=== PATIENT | male | born 1945 | race Caucasian/White ===

== ENCOUNTER 2020-09-07 03:58 | Emergency (ER) | payer MEDICARE, OTHER, MEDICAID, SELFPAY ==
--- NOTE | ~2020-09-07 | CT_ITS ---
EXAMINATION: CT brain wo con DATE: 09/07/2020 04:35 INDICATION: Head injury. TECHNIQUE: Computed tomography (CT) of the head was performed without intravenous contrast. The dose- length product was 1059.33 mGy-cm. Automated exposure control and iterative reconstruction technique were employed. COMPARISON: No prior studies for comparison. FINDINGS: There is a large extra-axial fluid collection of the right hemisphere measuring approximate ly 3 cm thickness on the coronal images. There is a right temporal craniotomy defect with ventriculos michelle catheter extending midline aspect of the anterior cranial fossa. There are dural calcifications along the right hemisphere. No acute intracranial hemorrhage or infarction is identified. No signific ant midline shift. Paranasal sinuses are unremarkable. IMPRESSION: 1. No acute intracranial abnormality. 2: Large extra-axial fluid collection right hemisphere measuring 3 cm which may represent a large chr onic subdural hematoma or hygroma. No midline shift. Reviewed, dictated and finalized at location B. IMPRESSION: 1. No acute intracranial abnormality. 2: Large extra-axial fluid collection right hemisphere measuring 3 cm which may represent a large chronic subdural hematoma or hygroma. No midline shift.
--- NOTE | 2020-09-07 04:11 | ED.HEATRA ---
HPI - Head Injury General Chief complaint: Wound/Laceration Stated complaint: fall-lac to face and scalp Time Seen by Provider: 09/07/20 04:07 Source: patient Mode of arrival: EMS Limitations: no limitations History of Present Illness HPI Narrative: Patient is a 74-year-old male complaining of hitting his head on a wheelchair after rolling out of bed, causing laceration on left side of his head. Patient denies any loss of consciousness. Patient denies any neck pain, chest pain, abdominal pain, back pain or any extremity pain/injury. Patient is nonambulatory and wheelchair-bound. Related Data Allergies Allergy/AdvReac Type Severity Reaction Status Date / Time aspirin Allergy Unknown Unknown Verified 09/07/20 04:18 Review of Systems Review of Systems: All systems reviewed & are unremarkable except as noted in HPI and below Constitutional: Constitutional: Denies body ache(s), Denies chills, Denies excessive sweating, Denies fatigue, Denies fever(s), Denies headache(s), Denies lethargy, Denies malaise, Denies weakness and Denies weight loss Eyes: Eyes: Denies blurry vision, Denies change in vision and Denies loss of vision ENT: Denies dizziness, Denies ear discharge, Denies headache(s), Denies lip swelling, Denies epistaxis, Denies nasal congestion, Denies neck pain, Denies throat swelling and Denies tongue swelling Cardiovascular: Cardiovascular: Denies chest pain, Denies chest pain at rest, Denies chest pain with activity, Denies diaphoresis, Denies rapid heart rate, Denies edema, Denies irregular heart rhythm, Denies lightheadedness, Denies palpitations, Denies dyspnea and Denies dyspnea on exertion Respiratory: Respiratory: Denies chest congestion, Denies cough, Denies hemoptysis, Denies dyspnea and Denies dyspnea on exertion Gastrointestinal: Gastrointestinal: Denies abdominal pain, Denies melena, Denies hematochezia, Denies diarrhea, Denies nausea, Denies vomiting and Denies hematemesis Musculoskeletal: Musculoskeletal: Denies abnormal gait, Denies deformity, Denies joint swelling, Denies limited range of motion, Denies neck pain and Denies numbness Neurologic: Denies Abnormal speech present, Denies confusion, Denies dizziness, Denies headache(s), Denies focal weakness, Denies loss of vision, Denies numbness, Denies Other visual disturbances, Denies Sensory deficit (Neuro) and Denies weakness Psychiatric: Psychiatric: Denies confusion, Denies depression, Denies auditory hallucinations, Denies homicidal ideation and Denies suicidal ideation Endocrine: Endocrine: Denies cold intolerance, Denies excessive sweating, Denies fatigue, Denies heat intolerance and Denies palpitations Hematologic/Lymphatic: Hematologic/Lymphatic: Denies easy bleeding and Denies easy bruising Allergic/Immunologic: Allergic/Immunologic: Denies lip swelling, Denies throat swelling and Denies tongue swelling [facility] Social History Social History Gender identity (if verbalized by the patient): Male Comments Past medical history: Traumatic brain injury, hypertension Social history: Non-smoker, no EtOH use, lives at a assisted Family history: Noncontributory Exam Const: General: cooperative, healthy appearing, comfortable, no acute distress, well developed, alert and awake; No confusion Limitations: no limitations HENMT: Head: normal to inspection, normocephalic and atraumatic Ears: hearing grossly normal bilaterally, TM normal on the right and TM normal on the left General nose exam: Normal external nose present, Normal nares present and No nasal discharge present Face and sinus: normal facial exam Mouth: Yes Normal oral and palatal mucosa present, Yes lip normal, Yes tongue normal and Yes oropharynx normal Throat: posterior oropharynx normal, tonsils normal and uvula midline Other: 4 cm laceration left frontoparietal area/scalp Eyes: General: appearance normal, both eyes and all related structur
[2020-09-07 04:14] VITALS: BP 154/93; PULSE 88; RESP 18; TEMP 36.2; O2SAT 98
--- NOTE | 2020-09-07 04:18 | PC.NURSE ---
Pt to CT scan via stretcher.
[2020-09-07 05:37] VITALS: BP 144/87; PULSE 84; RESP 15; O2SAT 99
--- NOTE | 2020-09-07 05:39 | PC.NURSE ---
called [facility] to request transport.. ETA [phone]
--- NOTE | 2020-09-07 06:16 | PC.NURSE ---
[facility] here.
--- NOTE | 2020-09-07 06:25 | PC.NURSE ---
Attempted to call [facility] x 2 in order to give pt report/status update. No answer x 2. [id number] [id number], no VM to leave message.
[2020-09-07 06:26] VITALS: BP 140/87; PULSE 80; RESP 17; O2SAT 97
== END 2020-09-07 06:27 ==
PROVIDERS: Emergency Provider Emergency Medicine; PCP Internal Medicine
DX: S01.01XA Laceration without foreign body of scalp, initial encounter (principal); I10 Essential (primary) hypertension; W06.XXXA Fall from bed, initial encounter
CPT/HCPCS: 12002; 70450; 99284

== ENCOUNTER 2021-05-27 02:39 | Emergency (ER) | payer MEDICARE, OTHER, MEDICAID, SELFPAY ==
--- NOTE | ~2021-05-27 | CT_ITS ---
EXAMINATION: CT cervical spine wo con DATE: 05/27/2021 03:07 INDICATION: Head injury. TECHNIQUE: Computed tomography (CT) of the cervical spine was performed without intravenous contrast. Automated exposure control and iterative reconstruction technique were employed. The dose-length pro duct was 351.35 mGy-cm. COMPARISON: None FINDINGS: There is mild scarring at right lung apex. Dental disease is noted. There is 45 degrees lev oscoliosis of cervical thoracic spine. There is 2 mm anterolisthesis of C6 on C7. There is mild chron ic anterior wedging of C7 and T1 vertebral bodies. There is interbody fusion at C5-C6. There is sever kelsie decreased disc height from C2-C3 through C4-C5 and moderately decreased disc height at C6-C7. The re is a benign bone island in T1 vertebral body. A disconnected right-sided ventriculoperitoneal shun t is noted. The following disc levels are specifically discussed: C2-C3: There is severe right and moderate left uncovertebral joint osteoarthritis. There is severe ri ght and moderate left facet joint osteoarthritis. There is moderate right neural foraminal stenosis. There is no central canal stenosis. C3-C4: There is severe right and mild left uncovertebral joint osteoarthritis. There is severe right and moderate left facet joint osteoarthritis. There is moderate right neural foraminal stenosis. Ther e is mild central canal stenosis. C4-C5: There is severe right and moderate left uncovertebral joint osteoarthritis. There is severe ri ght and mild left facet joint osteoarthritis. There is moderate right and mild left neural foraminal stenosis. There is mild central canal stenosis. C5-C6: There is mild right and moderate left uncovertebral joint hypertrophy. There is mild left face t joint osteoarthritis. There is ankylosis of right facet joint with severe hypertrophy. There is mil d bilateral neural foraminal stenosis. There is mild central canal stenosis. C6-C7: There is mild bilateral uncovertebral joint osteoarthritis. There is severe bilateral facet ebenezer int osteoarthritis. There is mild bilateral neural foraminal stenosis. There is mild central canal st enosis. C7-T1: There is no uncovertebral joint osteoarthritis. There is severe bilateral facet joint osteoart hritis. There is mild bilateral neural foraminal stenosis. There is no central canal stenosis. IMPRESSION: 1. No fracture. 2. Severe cervical spondylosis. 3. Cervical levoscoliosis. 4. Disconnected right ventriculoperitoneal shunt, which is chronic. Reviewed, dictated and finalized at location A. R CHASER
--- NOTE | ~2021-05-27 | XR_ITS ---
EXAMINATION: XR chest 1V portable DATE: 05/27/2021 03:10 INDICATION: Fall. TECHNIQUE: A single frontal view of the chest was obtained. COMPARISON: Chest 2 views 05/07/2013, CT abdomen and pelvis 01/20/2013 FINDINGS: There are airspace opacities in the lower lung zones. No pleural effusion or pneumothorax. The heart size is normal. A right-sided ventriculoperitoneal shunt is seen with tip in the right uppe r quadrant. IMPRESSION: 1. Airspace opacities in the lower lung zones, consistent with atelectasis versus pneumonia. Reviewed, dictated and finalized at location A. 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 Airspace opacities in the lower lung zones, consistent with atelectasis vers us pneumonia.
--- NOTE | ~2021-05-27 | CT_ITS ---
EXAMINATION: CT brain wo con DATE: 05/27/2021 03:07 INDICATION: Head injury. TECHNIQUE: Computed tomography (CT) of the head was performed without intravenous contrast. The mA wa s adjusted according to patient size. Iterative reconstruction technique was employed. The dose-lengt h product was 756.67 mGy-cm. COMPARISON: Head CT 09/07/2020 FINDINGS: There are scattered areas of low attenuation in the cerebral white matter. There is no intr acranial hemorrhage, acute infarction, or abnormal intracranial mass lesion. The ventricles are tod l in size. There are changes of right-sided craniotomy. There is a subdural fluid collection on the r ight that is isodense to cerebral spinal fluid with maximum thickness of 19 mm. A catheter passes thr ough this fluid collection with tip in the third ventricle. The catheter is disconnected from the tub ing in the scalp. There is mild mucosal thickening in the paranasal sinuses. The orbits are normal. T he mastoid air cells are normal. There is cerumen in the external auditory canals. There is an old bu rr hole in the left posterior skull. IMPRESSION: 1. Mild nonspecific cerebral white matter disease, which likely represents chronic small vessel ische daniel disease. 2. Stable right-sided subdural fluid collection, which may be a chronic subdural hematoma or hygroma. 3. Disconnected ventriculoperitoneal shunt, unchanged from 09/07/20. Reviewed, dictated and finalized at location A. ET PRESS ASSISTANT IMPRESSION: 1. Mild nonspecific cerebral white matter disease, which likely represents patient coordinator anusha small vessel ischemic disease. 2. Stable right-sided subdural fluid collection, which may be a chronic subdura l hematoma or hygroma. 3. Disconnected ventriculoperitoneal shunt, unchanged from 09/07/20.
[2021-05-27 02:38] VITALS: BP 155/83; PULSE 85; RESP 18; TEMP 36.7; O2SAT 97
--- NOTE | 2021-05-27 03:23 | ED.FALL ---
HPI - Fall General Chief Complaint: Fall Stated Complaint: FALL WITH HEAD LAC Source: RN notes reviewed History of Present Illness HPI Narrative: Patient presents emergency department from [facility] for fall. The patient was found down by his bed with a laceration over the left side of his forehead patient states he does not specifically recall how he fell he denies any pain or injury at this time. Patient denies any chest pain shortness of breath abdominal pain or extremity pain Related Data Allergies Allergy/AdvReac Type Severity Reaction Status Date / Time aspirin Allergy Severe Vomiting Verified 05/27/21 02:50 Review of Systems Review of Systems: Gen.: Denies fevers or chills ENT: Denies facial pain Respiratory: Denies shortness of breath CV: Denies chest pain GI: Denies abdominal pain nausea, emesis Musculoskeletal: Denies back pain or muscle pain Neuro: Denies numbness, tingling, weakness or focal weakness Skin: Reports laceration Except as documented, all other systems reviewed and negative PMFSH Past Medical History Medical History (Updated 05/27/21 @ 04:22 by Arthur Calvin DO) Hypertension Social History Social History (Updated 05/27/21 @ 03:41 by Arthur Calvin DO) Smoking status: Never smoker Gender identity (if verbalized by the patient): Male Exam Narrative: APPEARANCE: No acute distress, nontoxic, resting in bed EYES: PERRL HEENT: Normocephalic, 2 cm laceration over left lateral scalp that is linear and deep with mild venous bleeding and no foreign bodies. Nares patent oral mucosa moist with full range of motion Neck: C-collar present no midline tenderness palpation RESPIRATORY: No respiratory distress Clear to auscultation bilaterally with no rhonchi wheezing or rales. CARDIOVASCULAR: Regular rate and rhythm without murmurs rubs or gallops. ABDOMINAL: Soft, nontender, nondistended, no rebound or guarding MUSCULOSKELETAl: Moves all extremities. No clubbing, cyanosis or edema. No tenderness of bilateral upper and lower extremities NEURO: Awake and alert. Following commands, speech normal, no focal deficits SKIN:: Warm, dry. No rashes lesions or abrasions PSYCHIATRIC: Normal affect/mood, Course Course Emergency Course: Patient seen as a transfer but is not ambulatory at baseline Discussed with patient results of workup and diagnosis. Discussed need for follow-up with primary care, proper use of medication, and reasons to return to the emergency department. Patient understands and agrees to current treatment plan Vital Signs Vital signs: Vital Signs Temperature 98.1 F 05/27/21 02:38 Pulse Rate 85 05/27/21 02:38 Respiratory Rate 18 05/27/21 02:38 Blood Pressure 155/83 H 05/27/21 02:38 Pulse Oximetry 97 05/27/21 02:38 Temperature 98.1 F 05/27/21 02:38 Pulse Rate 85 05/27/21 02:38 Respiratory Rate 18 05/27/21 02:38 Blood Pressure 155/83 H 05/27/21 02:38 Pulse Oximetry 97 05/27/21 02:38 Procedures Laceration Laceration 1: ====== Skin Level ====== ====== Subcutaneous Layer ====== ====== Muscle Layer ====== ====== Tendon Layer ====== Dressin cm forehead laceration: Verbal consent was obtained prior to the procedure. The wound was cleaned with Betadine and irrigated with copious amounts of normal saline. Lidocaine 1% with epinephrine was used for anesthesia. Wound was explored is no foreign body seen. The wound was then closed with 4 5-0 nylon in simple interrupted fashion. A sterile dressing was applied following the procedure. Patient tolerated the procedure well MDM - Fall Imaging Data Attestation: I personally reviewed and interpreted this imaging study as follows: My impression: Chest x-ray reviewed by myself shows no acute process Radiologist's impression: CT head no intracranial hemorrhage or skull fracture otherwise unchanged appearance. C-spine no acute fracture in the cervical spine Discharge Plan Dischar
[2021-05-27] MEDS: TETANUS,DIPHTHERIA,AC PERTUSSIS ADULT (0.5 ML) BOOSTRIX IM (04:14)
--- NOTE | 2021-05-27 04:57 | PC.NURSE ---
[facility] here
[2021-05-27 05:07] VITALS: BP 127/74; PULSE 90; RESP 16; O2SAT 98
== END 2021-05-27 05:11 ==
LOC: ANHED 04:32
PROVIDERS: Emergency Provider Emergency Medicine
DX: S01.81XA Laceration without foreign body of other part of head, initial encounter (principal); Z23 Encounter for immunization; I10 Essential (primary) hypertension; R90.82 White matter disease, unspecified; R91.8 Other nonspecific abnormal finding of lung field; M47.812 Spondylosis without myelopathy or radiculopathy, cervical region; W19.XXXA Unspecified fall, initial encounter
CPT/HCPCS: 12011; 70450; 71045; 72125; 90471; 90715; 99284

== ENCOUNTER 2021-10-01 11:41 | Inpatient (IN) | payer MEDICARE, OTHER, MEDICAID, SELFPAY ==
--- NOTE | ~2021-10-01 | XR_ITS ---
XR chest 2V DATE: 10/01/2021 12:20 INDICATION: Cough. Weakness. TECHNIQUE: Portable upright AP and lateral views COMPARISON: 05/27/2021 AP chest FINDINGS: Shunt catheter tube is again noted overlying the right chest. Bilateral hyperinflation. Bibasilar infiltrate and/or atelectasis is again noted. Consider aspiration pneumonitis, bibasilar pn eumonia. Cardiomegaly. No pleural effusion or pulmonary vascular congestion or pneumothorax. IMPRESSION: Bibasilar infiltrates and/atelectasis. Consider aspiration pneumonitis, bibasilar pneumon ia Reviewed, dictated and finalized at location A. IMPRESSION: Bibasilar infiltrates and/atelectasis. Consider aspiration pneumoni tis, bibasilar pneumonia
--- NOTE | ~2021-10-01 | CT_ITS ---
EXAMINATION: CT abdomen pelvis w con DATE: 10/01/2021 15:50 INDICATION: Abdominal pain, intermittent. Elevated liver enzymes. Covid-positive. TECHNIQUE: Computed tomography (CT) of the abdomen and pelvis was performed with 100 CC Omnipaque 300 intravenous contrast. Automated exposure control and iterative reconstruction technique were employe d. Exam dose: 1096.48 mGy-cm total exam DLP. COMPARISON: 01/20/2013 CT abdomen pelvis FINDINGS: Prominent posterior right pleural calcifications and minimal posterior left pleural calcifi cation. There is bilateral lower lobe basilar infiltrate, atelectasis and/or scarring. Heart size is within normal limits. Coronary artery calcification. No pericardial or pleural effusi on. Right shunt catheter terminates in the right upper quadrant of the abdomen over the liver. 12 mm right renal cyst. 11 mm and 32 mm left renal cysts. 3.2 x 4 mm and 5 x 7.3 mm nonobstructing left renal calculi. No ureteral calculus or hydroureteronephrosis. Normal caliber of the abdominal aorta. No intraperitoneal or retroperitoneal or pelvic mass lesion or adenopathy or ascites. Very prominent amount of fecal material in the rectosigmoid area. No bowel obstruction is evident. No intraperitoneal free air. There is a wide ventral mid abdominal and pelvic wall hernia containing colon and small bowel without apparent strangulation or obstruction. Degenerative changes of the lower thoracic and lumbar spine and bilateral hips. 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 Reviewed, dictated and finalized at [facility]. IMPRESSION: Large ventral abdominal and pelvic wall hernia containing small karla wel and large bowel without strangulation or obstruction Bibasilar infiltrate and/atelectasis Right ventriculoperitoneal shunt terminating in right upper quadrant over the l iver Bilateral renal cysts Nonobstructing left renal calculi
[2021-10-01 11:53] VITALS: BP 107/62; PULSE 86; RESP 20; TEMP 36.9; O2SAT 96
--- NOTE | 2021-10-01 12:09 | ECG_ITS ---
Measurements Intervals [place] Rate: 89 P: 49 MI: 159 QRS: 1 QRSD: 159 T: 1 QT: 418 QTc: 509 Interpretive Statements SINUS RHYTHM RIGHT BUNDLE BRANCH BLOCK ABNORMAL ECG Electronically Signed On 10-01-2021 23:06:13 CDT by Petr Leung D.O.
[2021-10-01 12:38] LABS: Basophils Percent Auto 0.1 % (0.2-1.2); Eosinophils Percent Auto 0.1 % (0-4.4); Hematocrit 39.2 % (42.0-52.0); Hemoglobin 12.6 g/dL (14.0-18.0); Immature Granulocyte Absolute 0.06 K/mm3 (0.00-0.031); Immature Granulocyte Percent A 0.3 % (0-0.5); Lymphocytes Absolute Auto 1.11 K/mm3 (0.9-3.2); Lymphocytes Percent Auto 6.1 % (18.3-44.2); Mean Corpuscular HGB Conc 32.1 g/dl (32-36); Mean Corpuscular Hemoglobin 29.6 pg (26-34); Mean Corpuscular Volume 92.2 fl (80-100); Monocytes Absolute Auto 1.1 K/mm3 (0.1-0.6); Monocytes Percent Auto 5.9 % (2.6-8.5); Neutrophils Percent Auto 87.5 % (45.5-73.1); Platelet Count Result 257 k/mm3 (150-375); Red Blood Count 4.25 M/mm3 (4.6-6.20); Red Cell Distribution Width 15.2 % (11.5-14.5); White Blood Count 18.3 K/mm3 (4.5-10.0)
[2021-10-01 12:49] LABS: Alanine Aminotransferase 77 U/L (6-50); Alkaline Phosphatase 88 U/L (38-126); Anion Gap 8 mmol/L (8-16); Aspartate Amino Transferase 210 U/L (17-59); Bilirubin,Total 0.4 mg/dL (0.2-1.3); Blood Urea Nitrogen 44 mg/dL (9-20); Calcium 8.9 mg/dL (8.4-10.2); Carbon Dioxide 30 mmol/L (22-30); Chloride 101 mmol/L (98-107); Estimated Glomerular Filt Rate > 60; Glucose 102 mg/dL (65-110); Potassium 3.6 mmol/L (3.4-5.0); Sodium 139 mmol/L (137-145)
[2021-10-01 14:04] LABS: Appearance Urine Clear (Clear); Bilirubin Urine 1+ (Negative); Blood Urine 2+ (Negative); Color Urine Yellow (Yellow); Glucose Urine UA Negative (Negative); Ketones Urine Trace mg/dL (Negative); Leukocyte Esterase Ur Negative LEU/UL (Negative); Nitrate Urine Negative (Negative); Protein Urine 2+ mg/dL (Negative); Specific Grav Ur >= 1.030 (1.001-1.035); Urobilinogen Urine 0.2 mg/dL (<2.0)
--- NOTE | 2021-10-01 14:06 | ED.GENADULT ---
HPI - General Adult General Chief complaint: Weakness Stated complaint: not feeling well Time Seen by Provider: 10/01/21 12:39 History of Present Illness HPI narrative: 75-year-old male presenting to the emergency department for evaluation of not feeling well for the last few days. Patient states he has had some cough and shortness of breath. Patient normally is not on oxygen but patient does have an oxygen requirement today. Patient states he has not been having any fevers. Patient states he does have some intermittent abdominal pain. Patient does sit with his head leaning to the right. Patient does have a history of speech deficit which she states is unchanged today. Related Data Allergies Allergy/AdvReac Type Severity Reaction Status Date / Time aspirin Allergy Severe Vomiting Verified 05/27/21 02:50 Review of Systems Review of Systems: CONSTITUTIONAL: Denies fever, chills, or sweats. EYES: Denies visual changes, redness, or discharge. ENT: Denies rhinorrhea, congestion, sore throat, or otalgia. CARDIOVASCULAR: Denies chest pain, palpitations, or edema. RESPIRATORY: See HPI GASTROINTESTINAL: Intermittent abdominal pain GENITOURINARY: Denies dysuria or hematuria. SKIN: Denies rash or itching. MUSCULOSKELETAL: Denies back pain, joint pain, or myalgia. NEUROLOGIC: Denies headache, numbness, or weakness. [facility] Past Medical History Medical History Hypertension Social History Social History Smoking status: Never smoker Gender identity (if verbalized by the patient): Male Course Course Emergency Course: Patient was started on antibiotics due to concern for bacterial pneumonia. Patient was treated with Rocephin and is a throat. Patient is COVID test did result as positive. Patient does have a new O2 requirement. Case discussed with the hospitalist patient was seen and admitted. Vital Signs Vital signs: Vital Signs Temperature 98.5 F 10/01/21 11:53 Pulse Rate 86 10/01/21 11:53 Respiratory Rate 20 10/01/21 11:53 Blood Pressure 107/62 10/01/21 11:53 Pulse Oximetry 96 10/01/21 11:53 Oxygen Delivery Nasal Cannula 10/01/21 11:53 Oxygen Flow Rate 3 07/17/22 11:53 Temperature 98.3 F 10/01/21 18:24 Pulse Rate 94 10/01/21 18:24 Respiratory Rate 16 10/01/21 18:24 Blood Pressure 109/72 10/01/21 18:24 Pulse Oximetry 96 10/01/21 18:24 Oxygen Delivery Nasal Cannula 10/01/21 11:53 Oxygen Flow Rate 3 10/01/21 11:53 Medical Decision Making Vital Signs Vital Signs: Vital Signs Temperature 98.5 F 10/01/21 11:53 Pulse Rate 86 10/01/21 11:53 Respiratory Rate 20 10/01/21 11:53 Blood Pressure 107/62 10/01/21 11:53 Pulse Oximetry 96 10/01/21 11:53 Oxygen Delivery Nasal Cannula 10/01/21 11:53 Oxygen Flow Rate 3 10/01/21 11:53 Temperature 98.3 F 10/01/21 18:24 Pulse Rate 94 10/01/21 18:24 Respiratory Rate 16 10/01/21 18:24 Blood Pressure 109/72 10/01/21 18:24 Pulse Oximetry 96 10/01/21 18:24 Oxygen Delivery Nasal Cannula 10/01/21 11:53 Oxygen Flow Rate 3 10/01/21 11:53 Lab Data Lab results reviewed: Yes I reviewed the patient's lab results. Result diagrams: 10/01/21 12:26 10/01/21 17:09 Labs: Lab Results 10/01/21 10/01/21 10/01/21 Range/Units 12:26 12:26 13:52 WBC 18.3 H (4.5-10.0) K/mm3 RBC 4.25 L (4.6-6.20) M/mm3 Hgb 12.6 L (14.0-18.0) g/dL Hct 39.2 L (42.0-52.0) % MCV 92.2 (80-100) fl MCH 29.6 (26-34) pg MCHC 32.1 (32-36) g/dl RDW 15.2 H (11.5-14.5) % Plt Count 257 (150-375) k/mm3 MPV 9.0 (7.4-10.4) fl Immature Gran % (Auto) 0.3 (0-0.5) % Neut % (Auto) 87.5 H (45.5-73.1) % Lymph % (Auto) 6.1 L (18.3-44.2) % Citrus % (Auto) 5.9 (2.6-8.5) % Eos % (Auto) 0.1 (0-4.4) % Baso % (Auto)
[2021-10-01 14:09] LABS: Bacteria Urine Trace /hpf; Mucus Urine Rare /lpf; RBC Urine 21-50 /hpf (0-2); Squamous Epithelial Cell Urine Rare /hpf (Few); WBC Urine 16-20 /hpf
[2021-10-01 14:12] LABS: Add Urine Microscopic? YES
[2021-10-01 14:35] LABS: SARS-CoV-2 RNA PCR Positive
--- NOTE | 2021-10-01 16:16 | PM.IMHP ---
H&P: HPI History of Present Illness Date/Time: 10/01/21 1500 Chief Complaint: Not feeling well Narrative: This 75-year-old male patient with significant past medical history of hypertension, speech impediment presents to the emergency room from local half-way with complaints of having several days of a dry cough, congestion in his chest, dyspnea without fevers. At baseline he does not wear any supplemental oxygen, however is requiring here to maintain his oxygenation greater than 92%. In addition he has had intermittent abdominal pain. This patient at baseline routinely hold his head to the right, denies any neck pain or injury to the neck. He can move it Back into normal position. Upon evaluation in the emergency room he was found have a white blood cell count of 18.3 without left shift, elevation of his liver function enzymes and his urine had 2+ blood and 2+ protein. Chest x-ray was significant for bibasilar infiltrates indicating an ammonia and his COVID test was positive. Patient is being admitted to the hospital at this time the hospitalist service for further management of his COVID and subsequent pneumonia. Antibiotics were initiated in the emergency room. At the time of my assessment, the patient denies any chest pain, dyspnea, nausea, vomiting or diarrhea. He remains stable on supplemental oxygen. Review of Systems Review of Systems: All systems reviewed & are unremarkable except as noted in HPI and below PMFSH Past Medical History Medical History Hypertension Social History Social History Smoking status: Never smoker Gender identity (if verbalized by the patient): Male Meds Home Medications and Allergies Allergies Allergy/AdvReac Type Severity Reaction Status Date / Time aspirin Allergy Severe Vomiting Verified 05/27/21 02:50 Vital Signs Vital Signs - 24 hr 10/01/21 11:53 Temperature 98.5 F Pulse Rate 86 Respiratory Rate 20 Blood Pressure 107/62 Pulse Oximetry 96 Oxygen Delivery Nasal Cannula Oxygen Flow Rate 3 Exam Const: General: comfortable and no acute distress HENMT: General nose exam: Normal nares present Mouth: Yes moist mucous membranes Eyes: General: appearance normal, both eyes and all related structures Sclera: sclerae normal Pupils: Equal, round and reactive pupils present EOM: EOMs intact bilaterally Neck: Neck: not supple ( Stiff and held flexed to the right side. Patient can move, not easily.) Lymphatic: lymphadenopathy not noted Chest: Other: not tender to palpation. Resp: Effort & Inspection: normal respiratory effort Auscultation: crackles, rales, rhonchi and diminished lung sounds Cardio: Rate: regular rate Rhythm: regular rhythm Heart sounds: no gallops, no murmurs and no rubs GI: Inspection: non-distended GI Palp: Yes Soft to palpation and No Tenderness to palpation present (GI) Auscultation: normal bowel sounds Skin: General skin exam: normal color Lesions: no lesions noted Rashes: no rashes noted Wounds: no wounds Neuro: General: No gait normal Speech: normal speech Motor exam (neuro): Abnormal motor strength present ( generalized weakness, nonfocal) Sensory Exam: normal sensation Extrem: Other: moves all extremities well Reid Psych: Mental Status: mental status grossly normal Affect: normal affect H&P: Results Labs Labs: Short CBC 10/01/21 Range/Units 12:26 WBC 18.3 H (4.5-10.0) K/mm3 Hgb 12.6 L (14.0-18.0) g/dL Hct 39.2 L (42.0-52.0) % Plt Count 257 (150-375) k/mm3 BMP 10/01/21 12:26 Sodium 139 Potassium 3.6 Chloride 101 Carbon Dioxide 30 BUN 44 H Creatinine 1.10 Glucose 102 Calcium 8.9 Liver Function 10/01/21 Range/Units 12:26 Total Bilirubin 0.4 (0.2-1.3) mg/dL AST 210 H (17-59) U/L ALT 77 H (6-50) U/L Alkaline Phosphata
[2021-10-01] MEDS: DEXAMETHASONE 2 MG TABLET 6 MG PO (16:27)
[2021-10-01 17:29] LABS: Alanine Aminotransferase 68 U/L (6-50); Estimated Glomerular Filt Rate > 60; INR 1.2; Prothrombin Time 14.5 Seconds (11.1-14.7)
--- NOTE | 2021-10-01 17:30 | ADMGEN ---
This patient, Jaison Wahl, was admitted to Medical Room 340-01. Patient/family oriented to hospital policies and general routines including ID bracelet, bed and alarms, visiting hours, pain management, procedures, bathroom and other care routines, personal items, smoking policy, room service/diet, and visiting hours. Information on how to activate the Rapid Response Team has been discussed. Patient/Family are encouraged to report perceived risks to care and to ask questions if they do not understand what they are told or what they should do.
[2021-10-01 18:24] VITALS: BP 109/72; PULSE 94; RESP 16; TEMP 36.8; O2SAT 96
[2021-10-01 18:25] VITALS: BMI 24.5
[2021-10-01 20:00] VITALS: PULSE 92; RESP 20; O2SAT 98
[2021-10-01] MEDS: REMDESIVIR 200 MG/NS 250 ML 200 MG/250 ML BAG 250 MG IVPB (20:09)
[2021-10-01 21:53] VITALS: BP 124/70; PULSE 92; RESP 20; TEMP 36.4; O2SAT 98
[2021-10-02 05:38] LABS: Basophils Percent Auto 0.1 % (0.2-1.2); Hematocrit 38.8 % (42.0-52.0); Hemoglobin 13.1 g/dL (14.0-18.0); Immature Granulocyte Percent A 0.6 % (0-0.5); Lymphocytes Absolute Auto 0.78 K/mm3 (0.9-3.2); Lymphocytes Percent Auto 4.6 % (18.3-44.2); Mean Corpuscular HGB Conc 33.8 g/dl (32-36); Mean Corpuscular Hemoglobin 30.4 pg (26-34); Mean Platelet Volume 9.2 fl (7.4-10.4); Monocytes Absolute Auto 0.6 K/mm3 (0.1-0.6); Monocytes Percent Auto 3.6 % (2.6-8.5); Neutrophils Absolute Auto 15.4 K/mm3 (1.3-6.7); Neutrophils Percent Auto 91.1 % (45.5-73.1); Platelet Count Result 280 k/mm3 (150-375); Red Blood Count 4.31 M/mm3 (4.6-6.20); Red Cell Distribution Width 14.6 % (11.5-14.5); White Blood Count 16.9 K/mm3 (4.5-10.0)
[2021-10-02 05:49] LABS: INR 1.1; Prothrombin Time 14.1 Seconds (11.1-14.7)
[2021-10-02 06:00] VITALS: BP 131/81; PULSE 106; RESP 20; TEMP 36.8; O2SAT 95
[2021-10-02 06:04] LABS: Alanine Aminotransferase 81 U/L (6-50); Alkaline Phosphatase 96 U/L (38-126); Anion Gap 9 mmol/L (8-16); Aspartate Amino Transferase 181 U/L (17-59); Bilirubin,Total 0.5 mg/dL (0.2-1.3); Blood Urea Nitrogen 33 mg/dL (9-20); CRP 22.2 mg/dL (<1.0); Calcium 8.6 mg/dL (8.4-10.2); Carbon Dioxide 27 mmol/L (22-30); Chloride 103 mmol/L (98-107); Estimated CRCL calculation 75 ml/min; Estimated Glomerular Filt Rate > 60; Glucose 118 mg/dL (65-110); Lactate Dehydrogenase 750 U/L (313-618); Magnesium 2.2 mg/dL (1.6-2.3); Potassium 3.3 mmol/L (3.4-5.0); Sodium 139 mmol/L (137-145)
[2021-10-02] MEDS: UMECLIDINIUM BROMIDE 62.5 MCG ELLIPTA 1 PUFF INHALATION (08:06)
[2021-10-02 08:07] VITALS: PULSE 100; RESP 16; O2SAT 97
[2021-10-02] MEDS: DOCUSATE SODIUM 100 MG CAPSULE PO ×2 (08:31→16:07)
[2021-10-02] MEDS: ENOXAPARIN 40 MG/0.4 ML SYRINGE SUB-Q (08:31)
[2021-10-02] MEDS: BACLOFEN 10 MG TABLET PO ×3 (08:32→16:07)
[2021-10-02] MEDS: ACETAMINOPHEN 325 MG TABLET 650 MG PO ×2 (08:32→16:07)
[2021-10-02] MEDS: polyethylene glycoL 3350 17 GM POWD.PACK PO (08:32)
[2021-10-02] MEDS: lisinopriL 10 MG TABLET PO (08:47)
[2021-10-02] MEDS: hydroCHLOROthiazide 12.5 MG CAPSULE PO (08:47)
[2021-10-02] MEDS: amLODIPine BESYLATE 5 MG TABLET PO (08:48)
[2021-10-02] MEDS: TOLNAFTATE 1% POWDER 45 GM BTL 1 APPLIC TOPICAL ×2 (08:49→20:12)
[2021-10-02] MEDS: ROFLUMILAST 500 MCG TABLET PO (08:49)
[2021-10-02] MEDS: FLUTICASONE PROPIONATE 0.05% NA SPR 16 GM BTL (*BKC) 1 SPRAY NASAL (08:50)
[2021-10-02] MEDS: POTASSIUM CHLORIDE 20 MEQ PACKET (FOR LIQUID) 40 MEQ PO (09:13)
--- NOTE | 2021-10-02 11:24 | PM.IMPN ---
Progress Note: A&P Assessment and Plan (1) COVID: Code(s): U07.1 - COVID-19 Status: Acute Assessment and Plan: - patient meets criteria for remdesivir. It is started at this time. - Dexamethasone 6 mg IV push daily - Umeclidinium and albuterol ordered - Incentive spirometry - droplet precautions - continue Zithromax and Rocephin for possible superinfection - monitor labs and vitals as well as trend inflammatory markers. - Supplemental oxygen ordered. (2) Pneumonia: Code(s): J18.9 - Pneumonia, unspecified organism Status: Acute Assessment and Plan: - Secondary to COVID pneumonia. - See above plan for COVID-19. (3) Acute UTI: Code(s): N39.0 - Urinary tract infection, site not specified Status: Acute Assessment and Plan: - Await culture report. - Continue Rocephin 1 g daily. (4) Hypertension: Code(s): I10 - Essential (primary) hypertension Status: Acute Assessment and Plan: - Monitor - p.r.n. hydralazine ordered with parameters. Subjective Date/time seen: 10/02/21 11:24 No complaints Exam Const: General: comfortable and no acute distress HENMT: General nose exam: Normal nares present Mouth: Yes moist mucous membranes Eyes: General: appearance normal, both eyes and all related structures Sclera: sclerae normal Pupils: Equal, round and reactive pupils present EOM: EOMs intact bilaterally Neck: Neck: not supple ( Stiff and held flexed to the right side. Patient can move, not easily.) Lymphatic: lymphadenopathy not noted Chest: Other: not tender to palpation. Resp: Effort & Inspection: normal respiratory effort Auscultation: crackles, rales, rhonchi and diminished lung sounds Cardio: Rate: regular rate Rhythm: regular rhythm Heart sounds: no gallops, no murmurs and no rubs GI: Inspection: non-distended Auscultation: normal bowel sounds Skin: General skin exam: normal color Lesions: no lesions noted Rashes: no rashes noted Wounds: no wounds Neuro: General: No gait normal Cranial nerves: Yes Equal, round and reactive pupils present Speech: normal speech Motor exam (neuro): Abnormal motor strength present ( generalized weakness, nonfocal) Sensory Exam: normal sensation Extrem: Other: moves all extremities well Reid Psych: Mental Status: mental status grossly normal Affect: normal affect Objective Data Vital Signs Vital Signs: Vital Signs - 24 hr 10/01/21 11:53 10/01/21 18:24 10/01/21 21:53 Temperature 98.5 F 98.3 F 97.6 F Pulse Rate 86 94 92 Respiratory Rate 20 16 20 Blood Pressure 107/62 109/72 124/70 Pulse Oximetry 96 96 98 Oxygen Delivery Nasal Cannula Oxygen Flow Rate 3 10/01/21 20:00 10/02/21 06:00 10/02/21 08:07 Temperature 98.3 F Pulse Rate 92 106 H 100 Respiratory Rate 20 20 16 Blood Pressure 131/81 Pulse Oximetry 98 95 97 Oxygen Delivery Room Air Room Air Oxygen Flow Rate Intake/Output Intake/Output: Intake & Output 09/29/21 09/30/21 10/01/21 10/02/21 23:59 23:59 23:59 23:59 Intake Total 300 100 Balance 300 100 Meds/Results Medications: Active Medications Generic Name Dose Route Start Last Admin Trade Name Aldo PRN Reason Stop Dose Admin Acetaminophen 650 mg 10/02/21 09:00 10/02/21 08:32 Acetaminophen 325 Mg Tablet PO 650 mg BID LATISHA Administration Acetaminophen 650 mg 10/02/21 08:14 Acetaminophen 325 Mg Tablet PO Q4-6H PRN Pain Albuterol 2 puff 10/01/21 16:34 Albuterol Sulfate (*Sp) Aerosol 1 Puff INHALATION Q6HRT PRN Shortness Of Breath Amlodipine Besylate 5 mg 10/02/21 09:00 10/02/21 08:48 Amlodipine Besylate 5 Mg Tablet PO 5 mg DAILY LATISHA Administration Baclofen 10 mg 10/02/21 09:00 10/02/21 08:32 Baclofen 10 Mg Tablet PO 10 mg TID LATISHA Administration Dexamethasone Sodium Phosphate 6 mg 10/02/21 09:00 10/02/21 08:32 Dexamethasone Sod Phos Inj 10 Mg/
[2021-10-02 13:53] VITALS: BP 140/81; PULSE 86; RESP 16; TEMP 36.6; O2SAT 96
[2021-10-02 19:35] VITALS: PULSE 80; RESP 18; O2SAT 97
[2021-10-02] MEDS: FLUTICASONE/SALMETEROL 45-21 MCG INHALER 1 PUFF 2 PUFF INHALATION (19:35)
[2021-10-02 19:47] VITALS: BP 125/79; PULSE 86; RESP 16; TEMP 36.6; O2SAT 96
[2021-10-02 20:00] VITALS: PULSE 86; RESP 16; O2SAT 96
[2021-10-02] MEDS: MONTELUKAST SODIUM 10 MG TABLET PO (20:11)
[2021-10-02] MEDS: LORATADINE 10 MG TABLET PO (20:11)
[2021-10-02] MEDS: REMDESIVIR 100 MG/NS 250 ML 100 MG/250 ML BAG 250 MG IVPB (20:11)
[2021-10-03 04:18] VITALS: BP 142/89; PULSE 93; RESP 16; TEMP 36.6; O2SAT 97
[2021-10-03 06:13] LABS: INR 1.2; Prothrombin Time 14.5 Seconds (11.1-14.7)
[2021-10-03 06:23] LABS: Alanine Aminotransferase 69 U/L (6-50); Estimated CRCL calculation 85 ml/min; Estimated Glomerular Filt Rate > 60
[2021-10-03 07:56] LABS: Anion Gap 7 mmol/L (8-16); Blood Urea Nitrogen 26 mg/dL (9-20); Calcium 8.5 mg/dL (8.4-10.2); Carbon Dioxide 27 mmol/L (22-30); Chloride 103 mmol/L (98-107); Estimated CRCL calculation 85 ml/min; Estimated Glomerular Filt Rate > 60; Glucose 93 mg/dL (65-110); Potassium 3.7 mmol/L (3.4-5.0); Sodium 137 mmol/L (137-145)
[2021-10-03] MEDS: UMECLIDINIUM BROMIDE 62.5 MCG ELLIPTA 1 PUFF INHALATION (08:21)
[2021-10-03] MEDS: FLUTICASONE/SALMETEROL 45-21 MCG INHALER 1 PUFF 2 PUFF INHALATION ×2 (08:21→20:52)
[2021-10-03 08:22] VITALS: PULSE 94; RESP 18; O2SAT 97
[2021-10-03] MEDS: BACLOFEN 10 MG TABLET PO ×3 (09:52→16:10)
[2021-10-03] MEDS: amLODIPine BESYLATE 5 MG TABLET PO (09:52)
[2021-10-03] MEDS: ACETAMINOPHEN 325 MG TABLET 650 MG PO ×2 (09:52→16:10)
[2021-10-03] MEDS: POTASSIUM CHLORIDE 10 MEQ TABLET.ER PO (09:52)
[2021-10-03] MEDS: hydroCHLOROthiazide 12.5 MG CAPSULE PO (09:53)
[2021-10-03] MEDS: ENOXAPARIN 40 MG/0.4 ML SYRINGE SUB-Q (09:53)
[2021-10-03] MEDS: ROFLUMILAST 500 MCG TABLET PO (09:53)
[2021-10-03] MEDS: DOCUSATE SODIUM 100 MG CAPSULE PO ×2 (09:53→16:10)
[2021-10-03] MEDS: polyethylene glycoL 3350 17 GM POWD.PACK PO (09:53)
[2021-10-03] MEDS: TOLNAFTATE 1% POWDER 45 GM BTL 1 APPLIC TOPICAL ×2 (09:54→20:11)
[2021-10-03] MEDS: FLUTICASONE PROPIONATE 0.05% NA SPR 16 GM BTL (*BKC) 1 SPRAY NASAL (09:54)
[2021-10-03] MEDS: lisinopriL 10 MG TABLET PO (09:55)
[2021-10-03 11:20] VITALS: BP 118/66; PULSE 86; RESP 16; TEMP 36.8; O2SAT 94
--- NOTE | 2021-10-03 13:50 | PM.IMPN ---
Progress Note: A&P Assessment and Plan (1) COVID: Code(s): U07.1 - COVID-19 Status: Acute Assessment and Plan: - patient meets criteria for remdesivir. It is started at this time. - Dexamethasone 6 mg IV push daily - Umeclidinium and albuterol ordered - Incentive spirometry - droplet precautions - continue Zithromax and Rocephin for possible superinfection - monitor labs and vitals as well as trend inflammatory markers. - Supplemental oxygen has needed -can likely be discharged in 1-2 days (2) Pneumonia: Code(s): J18.9 - Pneumonia, unspecified organism Status: Acute Assessment and Plan: - Secondary to COVID pneumonia. - See above plan for COVID-19. (3) Acute UTI: Code(s): N39.0 - Urinary tract infection, site not specified Status: Acute Assessment and Plan: - Await culture report. - Continue Rocephin 1 g daily. (4) Hypertension: Code(s): I10 - Essential (primary) hypertension Status: Acute Assessment and Plan: - Monitor - p.r.n. hydralazine ordered with parameters. Subjective Date/time seen: 10/03/21 13:50 Currently not on any oxygen. Denies any excessive shortness of breath Exam Const: General: comfortable and no acute distress HENMT: General nose exam: Normal nares present Mouth: Yes moist mucous membranes Eyes: General: appearance normal, both eyes and all related structures Sclera: sclerae normal Pupils: Equal, round and reactive pupils present EOM: EOMs intact bilaterally Neck: Neck: not supple ( Stiff and held flexed to the right side. Patient can move, not easily.) Lymphatic: lymphadenopathy not noted Chest: Other: not tender to palpation. Resp: Effort & Inspection: normal respiratory effort Auscultation: crackles, rales, rhonchi and diminished lung sounds Cardio: Rate: regular rate Rhythm: regular rhythm Heart sounds: no gallops, no murmurs and no rubs GI: Inspection: non-distended Auscultation: normal bowel sounds Skin: General skin exam: normal color Lesions: no lesions noted Rashes: no rashes noted Wounds: no wounds Neuro: General: No gait normal Cranial nerves: Yes Equal, round and reactive pupils present Speech: normal speech Motor exam (neuro): Abnormal motor strength present ( generalized weakness, nonfocal) Sensory Exam: normal sensation Extrem: Other: moves all extremities well [facility] Psych: Mental Status: mental status grossly normal Affect: normal affect Objective Data Vital Signs Vital Signs: Vital Signs - 24 hr 10/02/21 13:53 10/02/21 19:47 10/02/21 19:35 Temperature 97.8 F 97.8 F Pulse Rate 86 86 80 Respiratory Rate 16 16 18 Blood Pressure 140/81 125/79 Pulse Oximetry 96 96 97 Oxygen Delivery Room Air 10/02/21 19:35 10/02/21 20:00 10/03/21 04:18 Temperature 97.9 F Pulse Rate 80 86 93 Respiratory Rate 18 16 16 Blood Pressure 142/89 H Pulse Oximetry 96 97 Oxygen Delivery Room Air 10/03/21 08:22 10/03/21 11:20 Temperature 98.2 F Pulse Rate 94 86 Respiratory Rate 18 16 Blood Pressure 118/66 Pulse Oximetry 97 94 Oxygen Delivery Room Air Intake/Output Intake/Output: Intake & Output 09/30/21 10/01/21 10/02/21 10/03/21 23:59 23:59 23:59 23:59 Intake Total 300 1740 360 Output Total 1800 575 Balance 300 -60 -215 Meds/Results Medications: Active Medications Generic Name Dose Route Start Last Admin Trade Name Aldo PRN Reason Stop Dose Admin Acetaminophen 650 mg 10/02/21 09:00 10/03/21 09:52 Acetaminophen 325 Mg Tablet PO 650 mg BID LATISHA Administration Acetaminophen 650 mg 10/02/21 08:14 Acetaminophen 325 Mg Tablet PO Q4-6H PRN Pain Albuterol 2 puff 10/01/21 16:34 Albuterol Sulfate (*Sp) Aerosol 1 Puff INHALATION Q6HRT PRN Shortness Of Breath Amlodipine Besylate 5 mg 10/02/21 09:00 10/03/21 09:52 Amlodipine Besylate 5 Mg Tablet PO 5 mg DAILY [facility] Admi
[2021-10-03 14:00] VITALS: BP 130/84; PULSE 78; RESP 18; TEMP 36.7; O2SAT 94
[2021-10-03 20:00] VITALS: PULSE 78; RESP 18; O2SAT 94
[2021-10-03] MEDS: REMDESIVIR 100 MG/NS 250 ML 100 MG/250 ML BAG 250 MG IVPB (20:10)
[2021-10-03] MEDS: LORATADINE 10 MG TABLET PO (20:11)
[2021-10-03] MEDS: MONTELUKAST SODIUM 10 MG TABLET PO (20:11)
[2021-10-03 21:30] VITALS: BP 139/82; PULSE 85; RESP 16; TEMP 36.6; O2SAT 97
[2021-10-04 04:17] VITALS: BP 151/90; PULSE 82; RESP 16; TEMP 36.6; O2SAT 97
[2021-10-04 06:16] LABS: Alanine Aminotransferase 68 U/L (6-50); Estimated CRCL calculation 85 ml/min; Estimated Glomerular Filt Rate > 60
[2021-10-04 06:21] LABS: INR 1.2; Prothrombin Time 14.5 Seconds (11.1-14.7)
[2021-10-04] MEDS: ACETAMINOPHEN 325 MG TABLET 650 MG PO ×2 (06:37→16:51)
[2021-10-04 07:39] VITALS: O2SAT 96
[2021-10-04] MEDS: FLUTICASONE/SALMETEROL 45-21 MCG INHALER 1 PUFF 2 PUFF INHALATION ×2 (07:39→20:42)
[2021-10-04] MEDS: UMECLIDINIUM BROMIDE 62.5 MCG ELLIPTA 1 PUFF INHALATION (07:39)
[2021-10-04] MEDS: POTASSIUM CHLORIDE 10 MEQ TABLET.ER PO (10:12)
[2021-10-04] MEDS: hydroCHLOROthiazide 12.5 MG CAPSULE PO (10:12)
[2021-10-04] MEDS: polyethylene glycoL 3350 17 GM POWD.PACK PO (10:12)
[2021-10-04] MEDS: DOCUSATE SODIUM 100 MG CAPSULE PO ×2 (10:12→16:51)
[2021-10-04] MEDS: lisinopriL 10 MG TABLET PO (10:12)
[2021-10-04] MEDS: ROFLUMILAST 500 MCG TABLET PO (10:12)
[2021-10-04] MEDS: amLODIPine BESYLATE 5 MG TABLET PO (10:13)
[2021-10-04] MEDS: BACLOFEN 10 MG TABLET PO ×3 (10:13→16:51)
[2021-10-04] MEDS: ENOXAPARIN 40 MG/0.4 ML SYRINGE SUB-Q (10:13)
[2021-10-04] MEDS: FLUTICASONE PROPIONATE 0.05% NA SPR 16 GM BTL (*BKC) 1 SPRAY NASAL (10:14)
[2021-10-04] MEDS: TOLNAFTATE 1% POWDER 45 GM BTL 1 APPLIC TOPICAL ×2 (10:14→20:26)
--- NOTE | 2021-10-04 13:38 | PM.IMPN ---
Progress Note: A&P Assessment and Plan (1) COVID: Code(s): U07.1 - COVID-19 Status: Acute (2) Hypertension: Code(s): I10 - Essential (primary) hypertension Status: Acute Additional Plan 75-year-old male patient with significant past medical history of? hypertension, speech impediment presents to the emergency room from local custodial with complaints of having several days of a dry cough, congestion in his chest, dyspnea without fevers.?Was found to have COVID 19. UTI has been ruled out. 1)COVID 19 Infection: Currently on RA c/w Dexamethasone, bronchodilatorsc/w remdesevir, Ceftriaxone and azithromycin PT/OT 2)HTN: C/w HCTZ and Lisinopril c/w PRN hydralazine 3)DVT ppx: Lovenox 4)Code:Full 5)Dispo:anticipate discharge in AM if does well with PT/OT today Time Spent With Patient Time with patient: 15 - 25 minutes Subjective Date/time seen: 10/04/21 13:38 Interval history: no acute events overnight, no SOB, feeling well Review of Systems Review of Systems: All systems reviewed & are unremarkable except as noted in HPI and below Constitutional: Constitutional: Reports no additional constitutional complaints Eyes: Eyes: Reports no additional eye complaints ENT: Reports system reviewed and no additional complaints, except as documented Cardiovascular: Cardiovascular: Reports no additional cardiovascular complaints Respiratory: Respiratory: Reports no additional respiratory complaints Gastrointestinal: Gastrointestinal: Reports no additional gastrointestinal complaints Musculoskeletal: Musculoskeletal: Reports no additional musculoskeletal complaints Integumentary/Breasts: Skin/Breast: Reports system reviewed and no additional complaints, except as docu Neurologic: Reports system reviewed and no additional complaints, except as documented Exam Const: General: comfortable and no acute distress HENMT: Mouth: Yes moist mucous membranes Eyes: Sclera: sclerae normal Pupils: Equal, round and reactive pupils present Neck: Neck: supple Resp: Effort & Inspection: normal respiratory effort Auscultation: clear to auscultation bilaterally Cardio: Rate: regular rate Rhythm: regular rhythm GI: GI Palp: Yes Soft to palpation Auscultation: normal bowel sounds Skin: General skin exam: normal color Extrem: General: normal to inspection Psych: Mental Status: mental status grossly normal Objective Data Vital Signs Vital Signs: Vital Signs - 24 hr 10/03/21 14:00 10/03/21 20:00 10/03/21 21:30 Temperature 98.0 F 97.9 F Pulse Rate 78 78 85 Respiratory Rate 18 18 16 Blood Pressure 130/84 139/82 Pulse Oximetry 94 94 97 Oxygen Delivery Room Air 10/04/21 04:17 10/04/21 07:39 Temperature 97.9 F Pulse Rate 82 Respiratory Rate 16 Blood Pressure 151/90 H Pulse Oximetry 97 96 Oxygen Delivery Room Air Intake/Output Intake/Output: Intake & Output 10/01/21 10/02/21 10/03/21 10/04/21 23:59 23:59 23:59 23:59 Intake Total 300 1740 1150 315 Output Total 1800 1525 400 Balance 300 -60 -375 -85 Meds/Results Medications: Active Medications Generic Name Dose Route Start Last Admin Trade Name Freq PRN Reason Stop Dose Admin Acetaminophen 650 mg 10/02/21 09:00 10/04/21 10:14 Acetaminophen 325 Mg Tablet PO Not Given BID LATISHA Acetaminophen 650 mg 10/02/21 08:14 10/04/21 06:37 Acetaminophen 325 Mg Tablet PO 650 mg Q4-6H PRN Administration Pain Albuterol 2 puff 10/01/21 16:34 Albuterol Sulfate (*Sp) Aerosol 1 Puff INHALATION Q6HRT PRN Shortness Of Breath Amlodipine Besylate 5 mg 10/02/21 09:00 10/04/21 10:13 Amlodipine Besylate 5 Mg Tablet PO 5 mg DAILY LATISHA Administration Baclofen 10 mg 10/02/21 09:00 10/04/21 10:13 Baclofen 10 Mg Tablet PO 10 mg TID LATISHA Administration Dexamethasone Sodium Phosphate 6 mg 10/02/21 09:00 10/04/21 10:13 Dexamethasone Sod Phos Inj 10 Mg/Ml [address]
[2021-10-04 14:00] VITALS: BP 114/65; PULSE 91; RESP 17; TEMP 36.6; O2SAT 96
[2021-10-04] MEDS: MONTELUKAST SODIUM 10 MG TABLET PO (20:25)
[2021-10-04] MEDS: LORATADINE 10 MG TABLET PO (20:25)
[2021-10-04 20:42] VITALS: PULSE 82; RESP 29; O2SAT 95
[2021-10-04 20:43] VITALS: PULSE 82; RESP 18
[2021-10-04 21:38] VITALS: BP 148/81; PULSE 89; RESP 16; TEMP 36.1; O2SAT 97
[2021-10-04] MEDS: REMDESIVIR 100 MG/NS 250 ML 100 MG/250 ML BAG 250 MG IVPB (22:26)
[2021-10-05 04:25] VITALS: BP 141/92; PULSE 94; RESP 16; TEMP 36.4; O2SAT 97
[2021-10-05 05:40] LABS: Basophils Percent Auto 0.2 % (0.2-1.2); Eosinophils Percent Auto 0.3 % (0-4.4); Hematocrit 41.1 % (42.0-52.0); Immature Granulocyte Absolute 0.08 K/mm3 (0.00-0.031); Immature Granulocyte Percent A 0.6 % (0-0.5); Lymphocytes Absolute Auto 2.66 K/mm3 (0.9-3.2); Lymphocytes Percent Auto 20.8 % (18.3-44.2); Mean Corpuscular HGB Conc 31.6 g/dl (32-36); Mean Corpuscular Hemoglobin 29.7 pg (26-34); Mean Corpuscular Volume 93.8 fl (80-100); Mean Platelet Volume 8.9 fl (7.4-10.4); Monocytes Absolute Auto 0.9 K/mm3 (0.1-0.6); Monocytes Percent Auto 7.4 % (2.6-8.5); Neutrophils Percent Auto 70.7 % (45.5-73.1); Platelet Count Result 272 k/mm3 (150-375); Red Blood Count 4.38 M/mm3 (4.6-6.20); Red Cell Distribution Width 14.5 % (11.5-14.5); White Blood Count 12.8 K/mm3 (4.5-10.0)
[2021-10-05 05:49] LABS: Alanine Aminotransferase 117 U/L (6-50); Albumin Level 3.6 g/dL (3.5-5.1); Alkaline Phosphatase 89 U/L (38-126); Anion Gap 5 mmol/L (8-16); Aspartate Amino Transferase 78 U/L (17-59); Bilirubin,Total 0.4 mg/dL (0.2-1.3); Blood Urea Nitrogen 20 mg/dL (9-20); Calcium 8.3 mg/dL (8.4-10.2); Carbon Dioxide 29 mmol/L (22-30); Chloride 99 mmol/L (98-107); Estimated CRCL calculation 75 ml/min; Estimated Glomerular Filt Rate > 60; Glucose 95 mg/dL (65-110); Potassium 3.3 mmol/L (3.4-5.0); Sodium 133 mmol/L (137-145)
[2021-10-05 05:51] LABS: INR 1.1
--- NOTE | 2021-10-05 07:29 | PM.DS ---
DS: Admitting Diagnosis Discharge Date 10/05/21 Admitting Diagnosis Shortness of Breath COVID 19 Infection Not feeling well DS: Discharge Diagnosis Discharge Diagnosis (1) Pneumonia: Code(s): J18.9 - Pneumonia, unspecified organism Status: Acute (2) COVID: Code(s): U07.1 - COVID-19 Status: Acute (3) Hypertension: Code(s): I10 - Essential (primary) hypertension Status: Acute (4) Dysphagia: Code(s): R13.10 - Dysphagia, unspecified Status: Acute DS: Summary Hospital Course Reason for hospitalization: Not feeling Well Shortness of Breath Hospital Course: 75-year-old male patient with significant past medical history of? hypertension, speech impediment presents to the emergency room from local retirement with complaints of having several days of a dry cough, congestion in his chest, dyspnea without fevers.?Was found to have COVID 19. Didn't require O2 support. Was treated with Dexamethasone, azithromycin, remdesivir. Was discharged on prednisone taper. UTI was ruled out. There was concern for dysphagia. Speech Therapy was consulted. Mildly thickened liquid was recommended. Discharged in stable condiiton. Status at Discharge Overall status at discharge: patient is back to baseline Time Spent with Patient Time attestation: Total time spent providing and/or coordinating discharge services: Time spent: Greater than 30 minutes Exam Const: General: comfortable and no acute distress HENMT: Mouth: Yes moist mucous membranes Eyes: Sclera: sclerae normal Pupils: Equal, round and reactive pupils present Neck: Neck: supple Resp: Effort & Inspection: normal respiratory effort Auscultation: clear to auscultation bilaterally Cardio: Rate: regular rate Rhythm: regular rhythm GI: Auscultation: normal bowel sounds Skin: General skin exam: normal color Neuro: Cranial nerves: Yes Equal, round and reactive pupils present Extrem: General: normal to inspection Psych: Mental Status: mental status grossly normal DS: Data Data Completed and Pending Labs on day of discharge: Labs from last 24 hours 10/05/21 10/05/21 10/05/21 05:19 05:19 05:19 WBC 12.8 H RBC 4.38 L Hgb 13.0 L Hct 41.1 L MCV 93.8 MCH 29.7 MCHC 31.6 L RDW 14.5 Plt Count 272 MPV 8.9 Immature Gran % (Auto) 0.6 H Neut % (Auto) 70.7 Lymph % (Auto) 20.8 Williams % (Auto) 7.4 Eos % (Auto) 0.3 Baso % (Auto) 0.2 Lymph # (Auto) 2.66 Williams # (Auto) 0.9 H Eos # (Auto) 0.0 Baso # (Auto) 0.0 Abs Immat Gran (auto) 0.08 H Absolute Neuts (auto) 9.0 H Absolute Nucleated RBC 0.0 Nucleated RBC % 0.0 PT 14.0 INR 1.1 Sodium 133 L Potassium 3.3 L Chloride 99 Carbon Dioxide 29 Anion Gap 5 L BUN 20 Creatinine 0.80 Estim Creat Clear Calc 75 Estimated GFR > 60 Glucose 95 Calcium 8.3 L Magnesium 2.0 Total Bilirubin 0.4 AST 78 H ALT 117 H Alkaline Phosphatase 89 Total Protein 7.0 Albumin 3.6 Discharge Plan Discharge Attending physician on discharge: Alisha Beatty Discharging Clinician: Alisha Beatty Anticipated Discharge Date/Time: 10/05/21 07:25 Patient Disposition: Other Activity: other - see discharge instructions Diet: as tolerated and regular Patient Instructions: Antibiotic Form Stand Alone Forms: General Discharge Information Follow-up/Referrals: UNKNOWN,DOCTOR [Primary Care Provider] - 1 Week Discharge Medications: New prednisone 10 mg tablets,dose pack See Taper PO DAILY 12 Days Qty: 42 0RF Taper: Prednisone Taper from 60 mg;12 days 60 mg DAILY for 2 Days and 0 Hour 50 mg DAILY for 2 Days and 0 Hour 40 mg DAILY for 2 Days and 0 Hour 30 mg DAILY for 2 Days and 0 Hour 20 mg DAILY for 2 Days and 0 Hour 10 mg DAILY for 2 Days and 0 Hour Continued amlodipine 5 mg tablet 1 tablet PO DAILY carissa
[2021-10-05 07:57] VITALS: BMI 10.0
[2021-10-05] MEDS: ACETAMINOPHEN 325 MG TABLET 650 MG PO (08:36)
[2021-10-05] MEDS: POTASSIUM CHLORIDE 20 MEQ PACKET (FOR LIQUID) 40 MEQ PO (08:36)
[2021-10-05] MEDS: BACLOFEN 10 MG TABLET PO (08:37)
[2021-10-05] MEDS: amLODIPine BESYLATE 5 MG TABLET PO (08:37)
[2021-10-05] MEDS: lisinopriL 10 MG TABLET PO (08:38)
[2021-10-05] MEDS: ROFLUMILAST 500 MCG TABLET PO (08:38)
[2021-10-05] MEDS: hydroCHLOROthiazide 12.5 MG CAPSULE PO (08:38)
[2021-10-05] MEDS: ENOXAPARIN 40 MG/0.4 ML SYRINGE SUB-Q (08:38)
[2021-10-05] MEDS: TOLNAFTATE 1% POWDER 45 GM BTL 1 APPLIC TOPICAL (08:39)
[2021-10-05] MEDS: FLUTICASONE PROPIONATE 0.05% NA SPR 16 GM BTL (*BKC) 1 SPRAY NASAL (08:40)
[2021-10-05] MEDS: FLUTICASONE/SALMETEROL 45-21 MCG INHALER 1 PUFF 2 PUFF INHALATION (09:49)
[2021-10-05 09:50] VITALS: PULSE 82; RESP 14
[2021-10-05] MEDS: UMECLIDINIUM BROMIDE 62.5 MCG ELLIPTA 1 PUFF INHALATION (09:50)
--- NOTE | 2021-10-05 11:07 | PCSTNOTE ---
Please refer to the Bedside Swallow Evaluation in the EMR. Please note, silent aspiration cannot be ruled out at bedside.
[2021-10-05] MEDS: POTASSIUM CHLORIDE 20 MEQ TABLET 40 MEQ PO (12:21)
== END 2021-10-05 12:40 | disposition other institution (70) | DRG 177 ==
LOC: ANHED 14:43 → ANH3MED 16:12
PROVIDERS: Emergency Medicine; Nurse Practitioner Adult Health; Admitting Provider Chiropractor; Emergency Provider Emergency Medicine; Visit Provider Internal Medicine
DX: U07.1 COVID-19 (principal); J12.82 Pneumonia due to coronavirus disease 2019; I10 Essential (primary) hypertension; R47.9 Unspecified speech disturbances; R13.10 Dysphagia, unspecified
CPT/HCPCS: 36415; 71046; 74177; 80048; 80053; 81001; 82565; 83615; 83735; 84460; 85025; 85610; 86140; 87086; 87088; 92610; 93005; 94640; 96365; 96366; 96372; 96375; 97165; 99285; A9270; C9803; G0378; J0248; J0456; J0696; J1100; J1650; J8540; Q9967; U0003; U0005

== ENCOUNTER 2022-05-21 17:04 | Emergency (ER) | payer MEDICARE, OTHER, MEDICAID, SELFPAY ==
[2022-05-21] VITALS (18 sets, daily range): BP systolic 130–150; BP diastolic 76–94; PULSE 88–100; RESP 15–26; TEMP 36.8–36.9; O2SAT 95–99
--- NOTE | ~2022-05-21 | CT_ITS ---
EXAMINATION: CT brain wo con DATE: 05/21/2022 18:18 INDICATION: headache, fall . TECHNIQUE: Computed tomography (CT) of the head was performed without intravenous contrast. The mA wa s adjusted according to patient size. Iterative reconstruction technique was employed. The dose-lengt h product was 681.00 mGy-cm. COMPARISON: 05/27/2021. FINDINGS: Exam limited by nonstandard plane of imaging acquisition, secondary to torticollis. No acute intracranial hemorrhage or new/acute extra-axial fluid collection. No hydrocephalus, mass, or herniation. No acute ischemic infarct. Unremarkable dural venous sinus attenuation. No acute osseous abnormality. Right temporal craniotomy. Shunt tubing in the right temporoparietal sc alp. Trace left mastoid fluid. Retention cyst or polyp in the left maxillary sinus, the remaining aerated spaces are clear. Redemonstration of the disconnected shunt tubing in the right middle cranial fossa terminating at or near the third ventricle. Stable right extra-axial fluid collection. Post surgical change in the righ t temporal lobe. Mild atrophy and chronic white matter change. Atherosclerotic intracranial calcifica tion. IMPRESSION: Limited examination as detailed above. Within that constraint, no definite acute intracranial process . Reviewed, dictated and finalized at location [facility]. MEDICINE PHYSICIAN IMPRESSION: Limited examination as detailed above. Within that constraint, no definite acut e intracranial process.
--- NOTE | ~2022-05-21 | XR_ITS ---
EXAM: [id number], [id number] DATE: 05/21/2022 17:52 HISTORY: knee pain, fall . COMPARISON: None available. FINDINGS: Normal mineralization. Old proximal right fibular fracture. No acute fracture or dislocati on. No lytic or blastic lesion. Mild bilateral tricompartmental knee osteoarthritis. No erosion or pe riosteal change. Linear radiopaque foreign body in the soft tissues anterior to the midportion of the left patella. Vascular calcifications. IMPRESSION: No acute osseous finding in the right or left knees. Linear radiopaque foreign body in th e soft tissues anterior to the left patellar tendon. Reviewed, dictated and finalized at location [facility]. 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 Linear radiopa que foreign body in the soft tissues anterior to the left patellar tendon.
--- NOTE | ~2022-05-21 | XR_ITS ---
EXAMINATION: XR chest 1V Exam Date/Time: 05/21/2022 18:20 LACTATION NURSE HISTORY: weakness Comparison: 10/01/2021. RESULT: Lines, tubes, and devices: Shunt tubing traverses the right chest and terminates in the right upper quadrant. Lungs and pleura: Segmental airspace opacities in the left lung base. Slightly increased mild bilate ral costophrenic angle blunting. Bibasilar scar/atelectasis. Senescent changes. Cardiomediastinal silhouette: Stable. Other: No acute osseous or upper abdominal finding. IMPRESSION: Left basilar airspace disease may represent aspiration pneumonitis, atelectasis, or pneumonia. Likely small bilateral pleural effusions. Reviewed, dictated and finalized at location K. ATION NURSE IMPRESSION: Left basilar airspace disease may represent aspiration pneumonitis, atelectasis , or pneumonia. Likely small bilateral pleural effusions.
--- NOTE | ~2022-05-21 | CT_ITS ---
EXAMINATION: CT cervical spine wo con DATE: 05/21/2022 18:27 INDICATION: headache, fall, torticollis TECHNIQUE: Computed tomography (CT) of the cervical spine was performed without intravenous contrast. Automated exposure control and iterative reconstruction technique were employed. The dose-length pro duct was 396.13 mGy-cm. COMPARISON: 05/27/2021. FINDINGS: Exam limited by torticollis. Vertebral Body Alignment: Intact. Stable minimal anterolisthesis at C6-7. Craniocervical and atlantoaxial alignment: Severe degenerative change. Alignment intact. Osseous structures/fracture: No evidence of a lytic or blastic process in the visualized spine. No e vidence of acute fracture. Interbody fusion at C5-6.. Cervical soft tissues: The paraspinal soft tissues planes are maintained. Biapical pleural scarring a nd atelectasis in the lungs. Degenerative changes: Multilevel degenerative disc disease. Multilevel severe facet arthropathy. IMPRESSION: Limited examination. No definite acute fracture or traumatic malalignment in the cervical spine. Reviewed, dictated and finalized at location K. DIRECTOR IMPRESSION: Limited examination. No definite acute fracture or traumatic malalignment in th e cervical spine.
--- NOTE | 2022-05-21 17:39 | ECG_ITS ---
Measurements Intervals Magna Rate: 99 P: 45 CA: 181 QRS: -13 QRSD: 158 T: -12 QT: 392 QTc: 505 Interpretive Statements SINUS RHYTHM RIGHT BUNDLE BRANCH BLOCK BORDERLINE ST-T WAVE ABNORMALITY- ANTEROLATERAL LEADS BASELINE ARTIFACT- I, II, III, AVR, AVL, AVF ABNORMAL ECG COMPARED TO ECG 10/01/2021 13:12:59 NO SIGNIFICANT CHANGES Electronically Signed On 05-22-2022 6:47:45 PAGEANT DIRECTOR by Petr Leung D.O.
--- NOTE | 2022-05-21 17:43 | ED.FALL ---
HPI - Fall General Chief Complaint: Fall Stated Complaint: fall, lethargic Time Seen by Provider: 05/21/22 17:18 Source: patient Mode of arrival: EMS Limitations: no limitations History of Present Illness HPI Narrative: This is a 76-year-old male with past medical history of CVA, HTN who [facility] with chief complaint of a fall that had occurred today. According to triage note this happened at 0430, but patient states to me that it happened this afternoon. Patient states that he hit his head during his fall. Denies bleeding. Denies any LOC. He is not on blood thinners. States he has a very mild headache here. Also complains of bilateral knee pain that is mild. Denies any known pops during the fall. Patient states this fall was mechanical in nature as he was trying to grab the table next to his bed, while the table slid out from under him and caused him to fall. Denies any preceding chest pain or shortness of breath. Denies abdominal pain. Triage note mentions he was having nausea and vomiting however patient states that he coughed up some phlegm and is not nauseous. Related Data Home Medications Medication Instructions Recorded Confirmed acetaminophen 325 mg tablet 650 mg PO BID 10/02/21 10/02/21 amlodipine 5 mg tablet 1 tablet PO DAILY 10/02/21 10/02/21 baclofen 10 mg tablet 1 tablet PO TID 10/02/21 10/02/21 budesonide-formoterol HFA 80 2 inh inhalation BID 10/02/21 10/02/21 mcg-4.5 mcg/actuation aerosol inhaler (Symbicort) cetirizine 10 mg tablet (Zyrtec) 10 mg PO HS 10/02/21 10/02/21 docusate sodium 100 mg capsule 100 mg PO BID 10/02/21 10/02/21 fluticasone propionate 50 1 ea intranasal DAILY 10/02/21 10/02/21 mcg/actuation nasal spray,suspension lisinopril 10 1 tablet PO DAILY 10/02/21 10/02/21 mg-hydrochlorothiazide 12.5 mg tablet magnesium hydroxide 400 mg/5 mL 30 ml PO DAILY PRN Constipation 10/02/21 10/02/21 oral suspension (Milk of Magnesia) montelukast 10 mg tablet 1 tablet PO HS 10/02/21 10/02/21 nystatin 100,000 unit/gram topical 1 applic topical BID PRN Rash 10/02/21 10/02/21 cream nystatin 100,000 unit/gram topical 1 applic topical BID 10/02/21 10/02/21 powder polyethylene glycol 3350 17 g PO DAILY 10/02/21 10/02/21 potassium chloride 10 mEq 1 tablet PO DAILY 10/02/21 10/02/21 tablet,extended release (Klor-Con) roflumilast 500 mcg tablet 1 tablet PO DAILY 10/02/21 10/02/21 (Daliresp) Allergies Allergy/AdvReac Type Severity Reaction Status Date / Time Penicillins Allergy Severe Verified 10/03/21 09:24 aspirin AdvReac Severe Vomiting Verified 10/04/21 08:14 Review of Systems Review of Systems: CONSTITUTIONAL: Denies fever, chills, or sweats. EYES: Denies visual changes, redness, or discharge. ENT: Denies rhinorrhea, congestion, sore throat, or otalgia. CARDIOVASCULAR: Denies chest pain, palpitations, or edema. RESPIRATORY: Endorses productive cough. Denies dyspnea. GASTROINTESTINAL: Denies abdominal pain, nausea, vomiting, or diarrhea. GENITOURINARY: Denies dysuria or hematuria. SKIN: Denies rash or itching. MUSCULOSKELETAL: Endorses knee pain bilaterally. Denies back pain, other joint pain, or myalgia. NEUROLOGIC: Endorses headache. denies numbness, dizziness, or weakness. Denies speech problems. Denies LOC. PSYCHIATRIC: Denies anxiety or depression. [facility] Past Medical History Medical History Hypertension Family History Family History (System 10/03/21 @ 09:24 by Raulito Long) Father Asthma Sibling Family history of heart disease in male family member before age 55 Mother Family history of heart disease in male family member before age 55 Social History Social History (System 10/03/21 @ 09:24 by Raulito Long) Smoking status: Never smoker Second hand tobacco smoke exposure: No Alcohol intake: never Substance use: never Substance use type: does not
[2022-05-21 18:06] LABS: Basophils Percent Auto 0.2 % (0.2-1.2); Eosinophils Percent Auto 0.2 % (0-4.4); Hematocrit 38.8 % (42.0-52.0); Hemoglobin 12.8 g/dL (14.0-18.0); Immature Granulocyte Absolute 0.07 K/mm3 (0.00-0.031); Immature Granulocyte Percent A 0.5 % (0-0.5); Lymphocytes Absolute Auto 1.39 K/mm3 (0.9-3.2); Lymphocytes Percent Auto 9.1 % (18.3-44.2); Mean Corpuscular Hemoglobin 30.8 pg (26-34); Mean Corpuscular Volume 93.5 fl (80-100); Mean Platelet Volume 8.6 fl (7.4-10.4); Monocytes Percent Auto 6.6 % (2.6-8.5); Neutrophils Absolute Auto 12.7 K/mm3 (1.3-6.7); Neutrophils Percent Auto 83.4 % (45.5-73.1); Platelet Count Result 234 k/mm3 (150-375); Red Blood Count 4.15 M/mm3 (4.6-6.20); Red Cell Distribution Width 14.4 % (11.5-14.5); White Blood Count 15.2 K/mm3 (4.5-10.0)
[2022-05-21 18:23] LABS: Alanine Aminotransferase 28 U/L (6-50); Albumin Level 4.1 g/dL (3.5-5.1); Alkaline Phosphatase 106 U/L (38-126); Anion Gap 7 mmol/L (8-16); Aspartate Amino Transferase 27 U/L (17-59); Bilirubin,Total 0.5 mg/dL (0.2-1.3); Blood Urea Nitrogen 18 mg/dL (9-20); Calcium 8.6 mg/dL (8.4-10.2); Carbon Dioxide 30 mmol/L (22-30); Chloride 101 mmol/L (98-107); Estimated Glomerular Filt Rate > 60; Glucose 108 mg/dL (65-110); Potassium 3.9 mmol/L (3.4-5.0); Sodium 138 mmol/L (137-145)
[2022-05-21 19:10] LABS: Magnesium 2.2 mg/dL (1.6-2.3)
[2022-05-21 19:31] LABS: Appearance Urine Clear (Clear); Bilirubin Urine Negative (Negative); Blood Urine Negative (Negative); Color Urine Yellow (Yellow); Glucose Urine UA Negative (Negative); Ketones Urine Negative (Negative); Leukocyte Esterase Ur Negative LEU/UL (Negative); Nitrate Urine Negative (Negative); Protein Urine Negative (Negative); Specific Grav Ur 1.015 (1.001-1.035); Urobilinogen Urine 0.2 mg/dL (<2.0)
[2022-05-21 19:37] LABS: Add Urine Microscopic? NO
[2022-05-21 20:16] LABS: Lactic Acid Reflex 0.6 mmol/L (0.7-2.0)
== END 2022-05-21 23:00 ==
PROVIDERS: Emergency Provider Physician Assistant
DX: J18.1 Lobar pneumonia, unspecified organism (principal); R94.31 Abnormal electrocardiogram [ECG] [EKG]; I10 Essential (primary) hypertension
CPT/HCPCS: 36415; 70450; 71045; 72125; 73560; 80053; 81003; 83605; 83735; 85025; 87040; 93005; 99284

== ENCOUNTER 2022-07-01 05:05 | Emergency (ER) | payer MEDICARE, OTHER, MEDICAID, SELFPAY ==
--- NOTE | ~2022-07-01 | CT_ITS ---
EXAMINATION: CT facial & cervical spine wo DATE: 07/01/2022 06:14 INDICATION: Head injury TECHNIQUE: Computed tomography (CT) of the maxillofacial region and cervical spine was performed with out intravenous contrast. The dose-length product (DLP) was 326.93 mGy-cm. Automated exposure control and iterative reconstruction technique were employed. COMPARISON: 05/21/2022 FINDINGS: MAXILLOFACIAL CT: No facial fracture is identified. There is mild mucosal thickening of the paranasal sinuses. The glob es and orbits are intact CERVICAL SPINE CT: Bone alignment is normal. There is no fracture. There is moderate to severe loss of intervertebral di sc space height throughout the cervical spine. There is multilevel severe facet and uncovertebral raffy nt osteoarthritis. The odontoid process is intact. IMPRESSION: 1. No facial fracture identified. 2. Severe cervical spondylosis without acute findings or significant interval change. Reviewed, dictated and finalized at location A. IMPRESSION: 1. No facial fracture identified. 2. Severe cervical spondylosis without acute findings or significant interval c saúl.
--- NOTE | ~2022-07-01 | CT_ITS ---
EXAMINATION: CT brain wo con INDICATION: Head injury COMPARISON: 05/21/2022 TECHNIQUE: Standard unenhanced head CT. The dose-length product (DLP) was 1190.46 mGy-cm. The mA was adjusted according to patient size. Iterative reconstruction technique was employed. FINDINGS: There is no acute intraparenchymal hemorrhage. No evidence of mass lesion. No evidence of a cute infarction. There is mild periventricular and subcortical hypodensity probably related to small vessel ischemic disease. There is mild prominence of the sulci and ventricles related to cerebral atr ophy. Intracranial calcified cerebral atherosclerosis is noted. There are changes of right-sided cran iotomy with a chronic isoattenuating subdural fluid collection which is unchanged. A catheter is agai n seen passing through the collection ending with its tip in the third ventricle. 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 The orbits and soft tissues are unremarkable. The visual ized sinuses and mastoid air cells are well aerated. IMPRESSION: 1. No acute intracranial abnormality. 2. Chronic right subdural fluid collection, consistent with chronic subdural hematoma or hygroma, wit hout significant change. Reviewed, dictated and finalized at location A. IMPRESSION: 1. No acute intracranial abnormality. 2. Chronic right subdural fluid collection, consistent with chronic subdural he matoma or hygroma, without significant change.
[2022-07-01 05:05] VITALS: BP 131/79; PULSE 84; RESP 18; TEMP 36.7; O2SAT 99
[2022-07-01] MEDS: TETANUS,DIPHTHERIA,AC PERTUSSIS ADULT (0.5 ML) BOOSTRIX IM (05:29)
[2022-07-01] MEDS: ceFAZolin 2 GM/D5W 50 ML 2 GM/50 ML BAG IVPB (05:40)
[2022-07-01 05:44] VITALS: BP 148/87; PULSE 88; RESP 16; O2SAT 99
[2022-07-01] MEDS: LIDOCAINE HCL 1% LOCAL INJ 10 ML VIAL (06:32)
--- NOTE | 2022-07-01 06:34 | ED.GENADULT ---
HPI - General Adult General Chief complaint: Wound/Laceration <Sixto Villavicencio MD - Last Filed: 07/01/22 06:42> Stated complaint: EAR AND ELBOW LAC S/P FALL <Sixto Villavicencio MD - Last Filed: 07/01/22 06:42> Time Seen by Provider: 07/01/22 05:20 <Sixto Villavicencio MD - Last Filed: 07/01/22 06:42> History of Present Illness HPI narrative: Patient 76-year-old gentleman who presents emerged from with chief complaint of fall and left ear and facial injury. Patient is a resident of a local nursing facility and apparently fell while he was going to the bathroom the patient reports laceration in his left ear the patient also reports a forehead laceration and abrasion to his right hand patient currently complains of no pain reports that he is not on any blood thinners. <Sixto Villavicencio MD - Last Filed: 07/01/22 06:42> Related Data Home medications: Home Medications Medication Instructions Recorded Confirmed acetaminophen 325 mg tablet 650 mg PO BID 10/02/21 10/02/21 amlodipine 5 mg tablet 1 tablet PO DAILY 10/02/21 10/02/21 baclofen 10 mg tablet 1 tablet PO TID 10/02/21 10/02/21 budesonide-formoterol HFA 80 2 inh inhalation BID 10/02/21 10/02/21 mcg-4.5 mcg/actuation aerosol inhaler (Symbicort) cetirizine 10 mg tablet (Zyrtec) 10 mg PO HS 10/02/21 10/02/21 docusate sodium 100 mg capsule 100 mg PO BID 10/02/21 10/02/21 fluticasone propionate 50 1 ea intranasal DAILY 10/02/21 10/02/21 mcg/actuation nasal spray,suspension lisinopril 10 1 tablet PO DAILY 10/02/21 10/02/21 mg-hydrochlorothiazide 12.5 mg tablet magnesium hydroxide 400 mg/5 mL 30 ml PO DAILY PRN Constipation 10/02/21 10/02/21 oral suspension (Milk of Magnesia) montelukast 10 mg tablet 1 tablet PO HS 10/02/21 10/02/21 nystatin 100,000 unit/gram topical 1 applic topical BID PRN Rash 10/02/21 10/02/21 cream nystatin 100,000 unit/gram topical 1 applic topical BID 10/02/21 10/02/21 powder polyethylene glycol 3350 17 g PO DAILY 10/02/21 10/02/21 potassium chloride 10 mEq 1 tablet PO DAILY 10/02/21 10/02/21 tablet,extended release (Klor-Con) roflumilast 500 mcg tablet 1 tablet PO DAILY 10/02/21 10/02/21 (Daliresp) <Sixto Villavicencio MD - Last Filed: 07/01/22 06:42> Allergies/adverse reactions: Allergies Allergy/AdvReac Type Severity Reaction Status Date / Time Penicillins Allergy Severe Verified 10/03/21 09:24 aspirin AdvReac Severe Vomiting Verified 10/04/21 08:14 <Sixto Villavicencio MD - Last Filed: 07/01/22 06:42> Review of Systems Review of Systems: A 10 system review of systems was completed on the patient and is negative except for what is stated in the HPI. Nursing and ancillary documentation was reviewed. <Sixto Villavicencio MD - Last Filed: 07/01/22 06:42> [facility] Past Medical History Medical History: Medical History Hypertension <Sixto Villavicencio MD - Last Filed: 07/01/22 06:42> Family History Family History: Family History Father Asthma Sibling Family history of heart disease in male family member before age 55 Mother Family history of heart disease in male family member before age 55 <Sixto Villavicencio MD - Last Filed: 07/01/22 06:42> Social History Social History: Social History Smoking status: Never smoker Second hand tobacco smoke exposure: No Alcohol intake: never Substance use: never Substance use type: does not use Gender identity (if verbalized by the patient): Male Spiritual care concerns: No <Sixto Villavicencio MD - Last Filed: 07/01/22 06:42> Exam Narrative: GENERAL: Well-appearing, well-nourished, and in no acute distress. HEAD: Normocephalic, 2 cm laceration of the forehead.
[2022-07-01 07:26] VITALS: BP 150/94; PULSE 80; RESP 18; O2SAT 100
[2022-07-01 09:47] VITALS: BP 145/88; PULSE 80; RESP 18; O2SAT 98
--- NOTE | 2022-07-01 09:50 | PC.NURSE ---
Attempted to call snf to give report, no answer, not able to give report.
== END 2022-07-01 09:51 ==
PROVIDERS: Emergency Provider Emergency Medicine
DX: S01.312A Laceration without foreign body of left ear, initial encounter (principal); S01.81XA Laceration without foreign body of other part of head, initial encounter; S61.411A Laceration without foreign body of right hand, initial encounter; I10 Essential (primary) hypertension; W01.0XXA Fall on same level from slipping, tripping and stumbling without subsequent striking against object, initial encounter; Z23 Encounter for immunization
CPT/HCPCS: 12013; 70450; 70486; 72125; 90471; 90715; 96365; 99284; J0690

== ENCOUNTER 2022-08-10 08:05 | Emergency (ER) | payer MEDICARE, OTHER, MEDICAID, SELFPAY ==
--- NOTE | ~2022-08-10 | CT_ITS ---
EXAMINATION: CT cervical spine wo con DATE: 08/10/2022 08:48 INDICATION: Status post trauma. Neck pain. TECHNIQUE: Computed tomography (CT) of the cervical spine was performed without intravenous contrast. The dose-length product was mGy-cm. COMPARISON: CT dated 05/21/2022 FINDINGS: There is significant levoscoliosis of the cervical spine. There is severe multilevel spondy losis characterized by disc narrowing, uncinate and facet hypertrophy and degenerative anterolisthesi s at C6-7. There is degenerative left lateral listhesis also at C6-7. No acute fracture or traumatic malalignment is identified. Craniovertebral junction is normal. There are changes of interbody fusion C5-6. No significant paraspinal soft tissue abnormality. There is apical pleural thickening/scarring. Study limited due to torticollis. IMPRESSION: 1. No acute abnormality of the cervical spine. 2: Severe cervical spondylosis with levoscoliosis. Reviewed, dictated and finalized at location B.
--- NOTE | ~2022-08-10 | CT_ITS ---
EXAMINATION: CT brain wo con DATE: 08/10/2022 08:47 INDICATION: Head injury. TECHNIQUE: Computed tomography (CT) of the head was performed without intravenous contrast. The dose- length product was 756.67 mGy-cm. Automated exposure control and iterative reconstruction technique w ere employed. COMPARISON: CT dated 07/01/2022 FINDINGS: There is a large right hemispheric subdural fluid collection extending inferiorly from the right middle cranial fossa to the vertex. The fluid collection measures approximately 2.7 cm transver sely which is not significantly changed from prior study. There is a right temporal parietal cranioto my defect. No significant midline shift. There are scattered mild periventricular and subcortical whi te matter changes, most likely related to small vessel ischemic disease (microangiopathy). There is a ventriculostomy catheter with the tip near the third ventricle. IMPRESSION: 1. No acute intracranial abnormality. 2: Stable chronic right subdural fluid collection, likely chronic subdural hematoma versus hygroma. Reviewed, dictated and finalized at location B. IMPRESSION: 1. No acute intracranial abnormality. 2: Stable chronic right subdural fluid collection, likely chronic subdural hem atoma versus hygroma.
[2022-08-10 08:06] VITALS: BP 144/81; PULSE 88; RESP 18; TEMP 36.6; O2SAT 97
[2022-08-10 09:49] VITALS: BP 135/75; PULSE 89; RESP 18; TEMP 35.9; O2SAT 96
--- NOTE | 2022-08-10 10:06 | ED.FALL ---
HPI - Fall General Chief Complaint: Fall Stated Complaint: fall Related Data Home Medications Medication Instructions Recorded Confirmed acetaminophen 325 mg tablet 650 mg PO BID 10/02/21 10/02/21 amlodipine 5 mg tablet 1 tablet PO DAILY 10/02/21 10/02/21 baclofen 10 mg tablet 1 tablet PO TID 10/02/21 10/02/21 budesonide-formoterol HFA 80 2 inh inhalation BID 10/02/21 10/02/21 mcg-4.5 mcg/actuation aerosol inhaler (Symbicort) cetirizine 10 mg tablet (Zyrtec) 10 mg PO HS 10/02/21 10/02/21 docusate sodium 100 mg capsule 100 mg PO BID 10/02/21 10/02/21 fluticasone propionate 50 1 ea intranasal DAILY 10/02/21 10/02/21 mcg/actuation nasal spray,suspension lisinopril 10 1 tablet PO DAILY 10/02/21 10/02/21 mg-hydrochlorothiazide 12.5 mg tablet magnesium hydroxide 400 mg/5 mL 30 ml PO DAILY PRN Constipation 10/02/21 10/02/21 oral suspension (Milk of [employer]) montelukast 10 mg tablet 1 tablet PO HS 10/02/21 10/02/21 nystatin 100,000 unit/gram topical 1 applic topical BID PRN Rash 10/02/21 10/02/21 cream nystatin 100,000 unit/gram topical 1 applic topical BID 10/02/21 10/02/21 powder polyethylene glycol 3350 17 g PO DAILY 10/02/21 10/02/21 potassium chloride 10 mEq 1 tablet PO DAILY 10/02/21 10/02/21 tablet,extended release (Klor-Con) roflumilast 500 mcg tablet 1 tablet PO DAILY 10/02/21 10/02/21 (Daliresp) Allergies Allergy/AdvReac Type Severity Reaction Status Date / Time Penicillins Allergy Severe Unknown Verified 08/10/22 08:13 aspirin AdvReac Severe Vomiting Verified 08/10/22 08:13 [facility] Past Medical History Medical History Hypertension Family History Family History Father Asthma Sibling Family history of heart disease in male family member before age 55 Mother Family history of heart disease in male family member before age 55 Social History Social History Smoking status: Never smoker Second hand tobacco smoke exposure: No Alcohol intake: never Substance use: never Substance use type: does not use Gender identity (if verbalized by the patient): Male Spiritual care concerns: No Course Vital Signs Vital signs: Vital Signs Temperature 97.8 F 08/10/22 08:06 Pulse Rate 88 08/10/22 08:06 Respiratory Rate 18 08/10/22 08:06 Blood Pressure 144/81 H 08/10/22 08:06 Pulse Oximetry 97 08/10/22 08:06 Oxygen Delivery Room Air 08/10/22 08:06 Temperature 96.7 F L 08/10/22 09:49 Pulse Rate 89 08/10/22 09:49 Respiratory Rate 18 08/10/22 09:49 Blood Pressure 135/75 08/10/22 09:49 Pulse Oximetry 96 08/10/22 09:49 Oxygen Delivery Room Air 08/10/22 08:06 Procedures Laceration Laceration 1: Date: 08/10/22 Time: 09:50 Site: scalp Side (If applicable): left Size (cm): 5 Description: other (L-shaped) Depth: simple, single layer Local Anesthetic: none Pre-repair: irrigated extensively ====== Skin Level ====== Skin layer closed with: marin Number of sutures: 7 ====== Subcutaneous Layer ====== ====== Muscle Layer ====== ====== Tendon Layer ====== Discharge Plan Discharge Clinical Impression: Laceration of scalp Patient Disposition: Home, Self-Care Condition: Stable Instructions: Staple Care (ED) Additional Instructions: You will need your marin removed in 1 week. This can be performed at your facility. Return to the ER if the wound is red and hot, it is draining pus, you have additional concerns. Prescriptions: No Action amlodipine 5 mg tablet 1 tablet PO DAILY potassium chloride [Klor-Con 10] 10 mEq tablet extended release 1 tablet PO DAILY baclofen 10 mg tablet 1 tablet PO TID nystatin 100,000 unit/gram
--- NOTE | 2022-08-10 10:17 | PC.NURSE ---
[facility] Return To [facility] accepted ETA 1hr
== END 2022-08-10 11:30 ==
PROVIDERS: Emergency Provider Emergency Medicine
DX: S01.01XA Laceration without foreign body of scalp, initial encounter (principal); I10 Essential (primary) hypertension; M47.812 Spondylosis without myelopathy or radiculopathy, cervical region; R93.0 Abnormal findings on diagnostic imaging of skull and head, not elsewhere classified; W18.30XA Fall on same level, unspecified, initial encounter
CPT/HCPCS: 12002; 70450; 72125; 99284

== ENCOUNTER 2022-10-18 10:50 | Emergency (ER) | payer MEDICARE, OTHER, MEDICAID, SELFPAY ==
[2022-10-18] VITALS (7 sets, daily range): BP systolic 121–136; BP diastolic 68–88; PULSE 80–95; RESP 15–18; TEMP 36.6–36.8; O2SAT 95–98
--- NOTE | ~2022-10-18 | XR_ITS ---
Portable chest x-ray Comparison: 05/21/2022 Clinical History: Status post fall Findings: There are multiple small suspected nodular opacities the right lung base. Possible left ba silar atelectasis. Cardiomediastinal silhouette is stable. [employer] SCI[employer] T[employer] shunt in place. Osseous structures mike ear intact. Impression: Multiple small suspected nodular opacities the right lung base, possibly calcified. Findings could re flect granulomas versus other airspace disease. Correlate clinically for pneumonia. Probable left basilar atelectatic change. H[employer] S[employer] SCI[employer] T[employer]OR shunt in place. Reviewed, dictated and finalized at location . Impression: Multiple small suspected nodular opacities the right lung base, possibly calcif ied. Findings could reflect granulomas versus other airspace disease. Correlate clinically for pneumonia. Probable left basilar atelectatic change. H[employer] SCI[employer] T[employer] shunt in place.
--- NOTE | ~2022-10-18 | CT_ITS ---
EXAMINATION: CT facial & cervical spine wo DATE: 10/18/2022 11:37 INDICATION: Head injury. TECHNIQUE: Computed tomography (CT) of the maxillofacial region and cervical spine was performed with out intravenous contrast. Automated exposure control and iterative reconstruction technique were empl oyed. The dose-length product was 184.82 mGy-cm. COMPARISON: CT 07/01/2022 FINDINGS: MAXILLOFACIAL CT: Bone alignment is normal. No fracture. There is mild mucosal thickening in the paranasal sinuses. The re are periapical lucencies at tooth #9. CERV[address]: There is 41 degrees levoscoliosis of cervical spine. There is mild chronic anterior wedging of C7 josh tebral body. There is interbody fusion at C5-C6. There is severely decreased disc height from C2-C3 t hrough C4-C5 and mildly decreased disc height at C6-C7. The following disc levels are specifically di scussed: C2-C3: There is severe right and mild left uncovertebral joint osteoarthritis. There is severe right and moderate left facet joint osteoarthritis. There is severe right and mild left neural foraminal st enosis. There is no central canal stenosis. C3-C4: There is severe right and mild left uncovertebral joint osteoarthritis. There is severe right and moderate left facet joint osteoarthritis. There is moderate right neural foraminal stenosis. Ther e is mild central canal stenosis. C4-C5: There is severe right and mild left uncovertebral joint osteoarthritis. There is severe right and mild left facet joint osteoarthritis. There is severe right and mild left neural foraminal stenos is. There is mild central canal stenosis. C5-C6: There is mild bilateral uncovertebral joint hypertrophy. There is moderate facet joint hypertr ophy. There is mild bilateral neural foraminal stenosis. There is mild central canal stenosis. C6-C7: There is mild right uncovertebral joint osteoarthritis. There is severe bilateral facet joint osteoarthritis. There is mild bilateral neural foraminal stenosis. There is mild central canal stenos is. C7-T1: There is no uncovertebral joint osteoarthritis. There is severe bilateral facet joint osteoart hritis. There is mild bilateral neural foraminal stenosis. There is no central canal stenosis. IMPRESSION: 1. No fracture. 2. Severe cervical spondylosis. 3. Cervical levoscoliosis. Reviewed, dictated and finalized at location L.
--- NOTE | ~2022-10-18 | XR_ITS ---
AP view of the pelvis Clinical history: Status post fall Findings: No acute fracture or dislocation is seen. Mild degenerative change of both hip joints noted . Soft tissues are unremarkable. Impression: No fracture identified. Reviewed, dictated and finalized at location M. Impression: No fracture identified.
--- NOTE | ~2022-10-18 | CT_ITS ---
EXAMINATION: CT brain wo con DATE: 10/18/2022 11:35 INDICATION: Head injury. TECHNIQUE: Computed tomography (CT) of the head was performed without intravenous contrast. The mA wa s adjusted according to patient size. Iterative reconstruction technique was employed. The dose-lengt h product was 605.33 mGy-cm. COMPARISON: Head CT 08/10/2022, 09/07/20 FINDINGS: There is a right-sided extra-axial fluid collection that is isodense to cerebral spinal flu id measuring 8.5 x 3.0 cm. There is mass effect on the underlying brain, which is chronic. There is a right-sided catheter with tip in the suprasellar cistern. The shunt is discontinuous at the skull, w hich is chronic. There is no intracranial hemorrhage, acute infarction, or abnormal intracranial mass lesion. There are scattered areas of low attenuation in the cerebral white matter. The ventricles ar e normal in size. The orbits are normal. There is mild mucosal thickening in the ethmoid sinuses. The re is a small left mastoid effusion. There is cerumen in the external auditory canals, worse on the r ight. IMPRESSION: 1. Chronic extra-axial fluid collection on the right with mass effect on the underlying brain, stable from 09/07/2020. 2. Discontinuous shunt catheter on the right, unchanged from 09/07/2020. 3. Mild nonspecific cerebral white matter disease, which likely represents chronic small vessel ische daniel disease. Reviewed, dictated and finalized at location L. IMPRESSION: 1. Chronic extra-axial fluid collection on the right with mass effect on the un derlying brain, stable from 09/07/2020. 2. Discontinuous shunt catheter on the right, unchanged from 09/07/2020. 3. 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
--- NOTE | 2022-10-18 11:42 | ED.FALL ---
HPI - Fall General Chief Complaint: Fall Stated Complaint: fall Time Seen by Provider: 10/18/22 11:10 Source: patient and EMS Mode of arrival: EMS Limitations: no limitations History of Present Illness HPI Narrative: This is a 76 year old male that presents to the ER after a fall today with head injury. Reports he was trying to get up off the toilet and into his wheelchair when he fell forward hitting his head. Reports a mild headache. Has a laceration to the forehead. Otherwise has no focal complaints. He is up to date on tetanus. Denies vision changes, vomiting, or new numbness or weakness. Related Data Home Medications Medication Instructions Recorded Confirmed acetaminophen 325 mg tablet 650 mg PO BID 10/02/21 10/02/21 baclofen 10 mg tablet 1 tablet PO TID 10/02/21 10/02/21 budesonide-formoterol HFA 80 2 inh inhalation BID 10/02/21 10/02/21 mcg-4.5 mcg/actuation aerosol inhaler (Symbicort) cetirizine 10 mg tablet (Zyrtec) 10 mg PO HS 10/02/21 10/02/21 docusate sodium 100 mg capsule 100 mg PO BID 10/02/21 10/02/21 fluticasone propionate 50 1 ea intranasal DAILY 10/02/21 10/02/21 mcg/actuation nasal spray,suspension lisinopril 10 1 tablet PO DAILY 10/02/21 10/02/21 mg-hydrochlorothiazide 12.5 mg tablet magnesium hydroxide 400 mg/5 mL 30 ml PO DAILY PRN Constipation 10/02/21 10/02/21 oral suspension (Milk of Magnesia) montelukast 10 mg tablet 1 tablet PO HS 10/02/21 10/02/21 nystatin 100,000 unit/gram topical 1 applic topical BID PRN Rash 10/02/21 10/02/21 cream polyethylene glycol 3350 17 g PO DAILY 10/02/21 10/02/21 potassium chloride 10 mEq 1 tablet PO DAILY 10/02/21 10/02/21 tablet,extended release (Klor-Con) roflumilast 500 mcg tablet 1 tablet PO DAILY 10/02/21 10/02/21 (Daliresp) amlodipine 5 mg tablet mg 10/18/22 ergocalciferol (vitamin D2) 10/18/22 guaifenesin Q12-24H 10/18/22 tamsulosin 10/18/22 Allergies Allergy/AdvReac Type Severity Reaction Status Date / Time Penicillins Allergy Severe Unknown Verified 08/10/22 08:13 aspirin AdvReac Severe Vomiting Verified 08/10/22 08:13 Review of Systems Review of Systems: CONSTITUTIONAL: Denies fever EYES: Denies visual changes GASTROINTESTINAL: Denies vomiting MUSCULOSKELETAL: Denies back pain, joint pain, or myalgia. NEUROLOGIC: Reports headache. Denies new numbness, or weakness. All systems reviewed & are unremarkable except as noted in HPI and below PMFSH Past Medical History Medical History Hypertension Family History Family History Father Asthma Sibling Family history of heart disease in male family member before age 55 Mother Family history of heart disease in male family member before age 55 Social History Social History Smoking status: Never smoker Second hand tobacco smoke exposure: No Alcohol intake: never Substance use: never Substance use type: does not use Gender identity (if verbalized by the patient): Male Spiritual care concerns: No Exam Narrative: GENERAL: Well-appearing, well-nourished, and in no acute distress. HEAD: Normocephalic. 2cm linear laceration into subcutaneous tissue over the forehead EYES: PERRLA and EOMI. ENT: Nares clear, no rhinorrhea or epistaxis. Mucous membranes moist. Oropharynx without tonsillar hypertrophy exudate or other lesions. Bilateral TMs pearly marina non-bulging NECK: Supple. No adenopathy or masses. No midline spinal tenderness CHEST: Clear to auscultation. No respiratory distress. No wheezes rales or rhonchi HEART: Regular rate and rhythm. No murmur heard. Normal peripheral pulses. ABDOMEN: Soft, nontender, nondistended, normal active bowel sounds. BACK: No midline spinal tenderness EXTREMITIES: Normal range of motion. No edema or obvious deformity. SKIN: Warm, dry
[2022-10-18] MEDS: LIDO 1%/EPINEPHRINE 1:100,000 20 ML VIAL INFILTRATE (14:46)
== END 2022-10-18 15:37 ==
PROVIDERS: Emergency Provider Physician Assistant; PCP Hospitalist
DX: J18.9 Pneumonia, unspecified organism (principal); S01.81XA Laceration without foreign body of other part of head, initial encounter; I10 Essential (primary) hypertension; W18.12XA Fall from or off toilet with subsequent striking against object, initial encounter
CPT/HCPCS: 12001; 70450; 70486; 71045; 72125; 72170; 99284

== ENCOUNTER 2023-02-05 07:14 | Emergency (ER) | payer MEDICARE, OTHER, MEDICAID, SELFPAY ==
--- NOTE | ~2023-02-05 | CT_ITS ---
EXAMINATION: CT brain wo con DATE: 02/05/2023 07:43 INDICATION: Head injury. TECHNIQUE: Computed tomography (CT) of the head was performed without intravenous contrast. The mA wa s adjusted according to patient size. Iterative reconstruction technique was employed. The dose-lengt h product was 681.00 mGy-cm. COMPARISON: Head CT 10/18/2022, 09/07/20 FINDINGS: There is no intracranial hemorrhage, acute infarction, or abnormal intracranial mass lesion . There is a chronic right frontotemporal parietal extra-axial fluid collection that is isodense to c erebral spinal fluid with maximum thickness of 2.6 cm. There are changes of right-sided craniotomy. T here is a right-sided catheter in the fluid collection with tip at the midline near the skull base. T he catheter is disconnected near the craniotomy, which is chronic. There are scattered areas of low a ttenuation in the cerebral white matter. The ventricles are normal in size. There is mucosal thickeni ng in the paranasal sinuses. The orbits are normal. The mastoid air cells are normal. There is cerume n in the external auditory canals. IMPRESSION: 1. Chronic extra-axial fluid collection on the right with mass effect on the underlying brain, stable from 09/07/2020. 2. Discontinuous shunt catheter on the right, unchanged from 09/07/2020. 3. Stable mild nonspecific cerebral white matter disease, which likely represents chronic small vesse l ischemic disease. Reviewed, dictated and finalized at location E. ERY OPERATOR IMPRESSION: 1. Chronic extra-axial fluid collection on the right with mass effect on the un derlying brain, stable from 09/07/2020. 2. Discontinuous shunt catheter on the right, unchanged from 09/07/2020. 3. Stable mild nonspecific cerebral white matter disease, which likely represen ts chronic small vessel ischemic disease.
--- NOTE | ~2023-02-05 | CT_ITS ---
EXAMINATION: CT cervical spine wo con DATE: 02/05/2023 07:43 INDICATION: Head injury. TECHNIQUE: Computed tomography (CT) of the cervical spine was performed without intravenous contrast. Automated exposure control and iterative reconstruction technique were employed. The dose-length pro duct was 188.83 mGy-cm. COMPARISON: CT cervical spine 10/18/2022 FINDINGS: There is 41 degrees levoscoliosis of cervical spine. There is mild chronic anterior wedging of C7 vertebral body. There is interbody fusion at C5-C6. There is severely decreased disc height fr om C2-C3 through C4-C5 and mildly decreased disc height at C6-C7. The following disc levels are speci fically discussed: C2-C3: There is severe right and mild left uncovertebral joint osteoarthritis. There is severe right and moderate left facet joint osteoarthritis. There is severe right and mild left neural foraminal st enosis. There is no central canal stenosis. C3-C4: There is severe right and mild left uncovertebral joint osteoarthritis. There is severe right and moderate left facet joint osteoarthritis. There is moderate right neural foraminal stenosis. Ther e is mild central canal stenosis. C4-C5: There is severe right and mild left uncovertebral joint osteoarthritis. There is severe right and mild left facet joint osteoarthritis. There is severe right and mild left neural foraminal stenos is. There is mild central canal stenosis. C5-C6: There is mild bilateral uncovertebral joint hypertrophy. There is moderate facet joint hypertr ophy. There is mild bilateral neural foraminal stenosis. There is mild central canal stenosis. C6-C7: There is mild right uncovertebral joint osteoarthritis. There is severe bilateral facet joint osteoarthritis. There is mild bilateral neural foraminal stenosis. There is mild central canal stenos is. C7-T1: There is no uncovertebral joint osteoarthritis. There is severe bilateral facet joint osteoart hritis. There is mild bilateral neural foraminal stenosis. There is no central canal stenosis. IMPRESSION: 1. No fracture. 2. Severe cervical spondylosis. 3. Cervical levoscoliosis. Reviewed, dictated and finalized at location E. ETICIAN/SPA COORDINATOR
[2023-02-05 07:13] VITALS: BP 155/74; PULSE 85; RESP 16; TEMP 36.6; O2SAT 97
--- NOTE | 2023-02-05 07:29 | ED.GENADULT ---
HPI - General Adult General Chief complaint: Fall Stated complaint: fall History of Present Illness HPI narrative: 77-year-old male presenting to the rust for local long term after having a ground level fall. Patient states he was attempting to get out of bed when his ankle got caught causing him to fall. Patient does have skin tears to his left arm and did strike his head. Patient denies any loss of conscious. Patient is at his baseline mental status per long term. Related Data Home Medications Medication Instructions Recorded Confirmed acetaminophen 325 mg tablet 650 mg PO BID 10/02/21 10/02/21 baclofen 10 mg tablet 1 tablet PO TID 10/02/21 10/02/21 budesonide-formoterol HFA 80 2 inh inhalation BID 10/02/21 10/02/21 mcg-4.5 mcg/actuation aerosol inhaler (Symbicort) cetirizine 10 mg tablet (Zyrtec) 10 mg PO HS 10/02/21 10/02/21 docusate sodium 100 mg capsule 100 mg PO BID 10/02/21 10/02/21 fluticasone propionate 50 1 ea intranasal DAILY 10/02/21 10/02/21 mcg/actuation nasal spray,suspension lisinopril 10 1 tablet PO DAILY 10/02/21 10/02/21 mg-hydrochlorothiazide 12.5 mg tablet magnesium hydroxide 400 mg/5 mL 30 ml PO DAILY PRN Constipation 10/02/21 10/02/21 oral suspension (Milk of Magnesia) montelukast 10 mg tablet 1 tablet PO HS 10/02/21 10/02/21 nystatin 100,000 unit/gram topical 1 applic topical BID PRN Rash 10/02/21 10/02/21 cream polyethylene glycol 3350 17 g PO DAILY 10/02/21 10/02/21 potassium chloride 10 mEq 1 tablet PO DAILY 10/02/21 10/02/21 tablet,extended release (Klor-Con) roflumilast 500 mcg tablet 1 tablet PO DAILY 10/02/21 10/02/21 (Daliresp) amlodipine 5 mg tablet mg 10/18/22 ergocalciferol (vitamin D2) 10/18/22 guaifenesin Q12-24H 10/18/22 tamsulosin 10/18/22 Allergies Allergy/AdvReac Type Severity Reaction Status Date / Time Penicillins Allergy Severe Unknown Verified 02/05/23 07:22 aspirin AdvReac Severe Vomiting Verified 02/05/23 07:22 Review of Systems Review of Systems: All systems reviewed & are unremarkable except as noted in HPI and below PMFSH Past Medical History Medical History Hypertension Family History Family History Father Asthma Sibling Family history of heart disease in male family member before age 55 Mother Family history of heart disease in male family member before age 55 Social History Social History Smoking status: Never smoker Second hand tobacco smoke exposure: No Alcohol intake: never Substance use: never Substance use type: does not use Gender identity (if verbalized by the patient): Male Spiritual care concerns: No Exam Narrative: APPEARANCE: Well appearing, no pain, no distress, well-nourished. HEAD: normocephalic, atraumatic. EYES: PERRLA/EOMI, conjunctivae clear. NOSE: Normal no drainage EARS:TMS clear with good light reflex. THROAT: Pharynx clear, no exudate. NECK: Supple. No adenopathy, no masses. RESPIRATORY: Airway patent, respirations nonlabored. Clear to auscultation bilaterally, no rales, rhonchi, wheezing. CARDIOVASCULAR: Regular rate and rhythm without murmurs rubs or gallops. ABDOMINAL: Soft, nontender, nondistended, normal bowel sounds MUSCULOSKELETAL: Moves all extremities. Strength/ROM intact, No edema, No calf tenderness. NEURO: Alert. Cranial nerves II through XII intact. Good gait. Good coordination SKIN: Abrasion to left forehead and skin tears to left arm Course Course Emergency Course: 77-year-old male presents to the department for evaluation after having injury is secondary to a fall from bed. Patient's abrasions and skin tears to forehead and left arm were repaired with Steri-Strips. Head CT was negative for acute findings. Patient declined any other complaints at this time. P
[2023-02-05 07:31] VITALS: O2SAT 93
[2023-02-05 07:48] VITALS: O2SAT 98
[2023-02-05 10:01] VITALS: BP 122/79
== END 2023-02-05 10:44 ==
PROVIDERS: Emergency Provider Emergency Medicine; PCP Hospitalist
DX: S09.90XA Unspecified injury of head, initial encounter (principal); S51.812A Laceration without foreign body of left forearm, initial encounter; I10 Essential (primary) hypertension; W06.XXXA Fall from bed, initial encounter
CPT/HCPCS: 70450; 72125; 99284

== ENCOUNTER 2023-03-21 18:39 | Inpatient (IN) | payer MEDICARE, OTHER, MEDICAID, SELFPAY ==
[2023-03-21] VITALS (8 sets, daily range): BP systolic 100–140; BP diastolic 48–96; PULSE 88–130; RESP 15–22; TEMP 37–38.7; O2SAT 89–99; BMI 26.3
--- NOTE | ~2023-03-21 | XR_ITS ---
EXAMINATION: XR chest 1V portable DATE: 03/21/2023 19:46 INDICATION: Sepsis. TECHNIQUE: A single frontal view of the chest was obtained. COMPARISON: Chest single view 10/18/2022, CT abdomen and pelvis 10/01/2021 FINDINGS: There are chronic airspace opacities in the lower lung zones, consistent with calcified ple ural plaques and chronic lung disease. No pleural effusion or pneumothorax. The heart size is normal. There is a right-sided ventriculoperitoneal shunt. IMPRESSION: 1. Chronic airspace opacities in the lower lung zones, consistent with calcified pleural plaques and chronic lung disease. Reviewed, dictated and finalized at location E. ON GRAPHICS DESIGNER IMPRESSION: 1. Chronic airspace opacities in the lower lung zones, consistent with calcifie d pleural plaques and chronic lung disease.
--- NOTE | ~2023-03-21 | XR_ITS ---
XR chest 1V portable DATE: 03/24/2023 10:29 INDICATION: Sepsis TECHNIQUE: Portable upright AP chest views on 03/24/2023 at 1006 and 1007 hours COMPARISON: 03/2023 portable AP chest at 1939 hours FINDINGS: Chronic airspace opacities are again noted in both lower lung zones primarily, left greater than right. Cardiomegaly, aortic atherosclerosis. There is minimal if any pleural effusion. No pneumothorax.. There is pulmonary vascular redistribution which may indicate mild pulmonary venous hypertension. Right ventriculoperitoneal shunt catheter. IMPRESSION: No significant change since 03/21/2023 Reviewed, dictated and finalized at location A. NG HAND
--- NOTE | ~2023-03-21 | XR_ITS ---
EXAMINATION: XR shoulder RT min 2V DATE: 03/21/2023 19:46 INDICATION: Right shoulder injury. Fall. TECHNIQUE: 2 views of right shoulder were obtained. COMPARISON: None. FINDINGS: Bone alignment is normal. No fracture. There is mild osteoarthritis of glenohumeral joint a nd severe osteoarthritis of acromioclavicular joint. A right-sided ventriculoperitoneal shunt is note d. IMPRESSION: 1. Polyarticular osteoarthritis. Reviewed, dictated and finalized at location E. PLAYER
--- NOTE | 2023-03-21 19:18 | ECG_ITS ---
Measurements Intervals [place] Rate: 107 P: 59 [place]: 162 QRS: 19 QRSD: 164 T: 12 QT: 391 QTc: 524 Interpretive Statements SINUS TACHYCARDIA ATRIAL AND VENTRICULAR PREMATURE COMPLEXES RIGHT BUNDLE BRANCH BLOCK BASELINE ARTIFACT- II, III ABNORMAL ECG COMPARED TO ECG 05/21/2022 19:06:23 SINUS TACHYCARDIA NOW PRESENT Electronically Signed On 03-22-2023 6:36:26 SOFTWARE ARCHITECT by Petr Leung D.O.
--- NOTE | 2023-03-21 19:38 | ED.FEVER ---
HPI - Fever General Chief Complaint: Fever Stated Complaint: GLF, RIGHT shoulder pain Time Seen by Provider: 03/21/23 19:07 Source: patient Limitations: no limitations History of Present Illness HPI Narrative: Patient is a 77-year-old male presenting to department complaining of fall cough. Patient states at some point earlier today in the past few hours as he was transitioning from his bed to the wheelchair and since having some very mild discomfort in her right shoulder, denies history injury to this region in the past and denies loss of consciousness, denies use of blood thinners. Patient admits to a recent cough she has not noticed any sputum production. Patient is unsure if it has any fever recently. Patient denies any antibiotic use. Patient denies chest pain, shortness of breath, abdominal pain, diarrhea, melena, hematochezia, headache, vision changes, sore throat, nasal congestion, ear pain, numbness, weakness, urinary incontinence, stool incontinence, nausea, vomiting. Patient states he typically uses a walker to ambulate. Patient does admit to some mild urinary discomfort that comes and goes. Related Data Home Medications Medication Instructions Recorded Confirmed acetaminophen 325 mg tablet 650 mg PO BID 10/02/21 10/02/21 baclofen 10 mg tablet 1 tablet PO TID 10/02/21 10/02/21 budesonide-formoterol HFA 80 2 inh inhalation BID 10/02/21 10/02/21 mcg-4.5 mcg/actuation aerosol inhaler (Symbicort) cetirizine 10 mg tablet (Zyrtec) 10 mg PO HS 10/02/21 10/02/21 docusate sodium 100 mg capsule 100 mg PO BID 10/02/21 10/02/21 fluticasone propionate 50 1 ea intranasal DAILY 10/02/21 10/02/21 mcg/actuation nasal spray,suspension lisinopril 10 1 tablet PO DAILY 10/02/21 10/02/21 mg-hydrochlorothiazide 12.5 mg tablet magnesium hydroxide 400 mg/5 mL 30 ml PO DAILY PRN Constipation 10/02/21 10/02/21 oral suspension (Milk of Magnesia) montelukast 10 mg tablet 1 tablet PO HS 10/02/21 10/02/21 nystatin 100,000 unit/gram topical 1 applic topical BID PRN Rash 10/02/21 10/02/21 cream polyethylene glycol 3350 17 g PO DAILY 10/02/21 10/02/21 potassium chloride 10 mEq 1 tablet PO DAILY 10/02/21 10/02/21 tablet,extended release (Klor-Con) roflumilast 500 mcg tablet 1 tablet PO DAILY 10/02/21 10/02/21 (Daliresp) amlodipine 5 mg tablet mg 10/18/22 ergocalciferol (vitamin D2) 10/18/22 guaifenesin Q12-24H 10/18/22 tamsulosin 10/18/22 Allergies Allergy/AdvReac Type Severity Reaction Status Date / Time Penicillins Allergy Severe Unknown Verified 02/05/23 07:22 aspirin AdvReac Severe Vomiting Verified 02/05/23 07:22 Review of Systems Review of Systems: A 10 system review of systems was completed on the patient and is negative except for what is stated in the HPI. Nursing and ancillary documentation was reviewed. PMFSH Past Medical History Medical History Hypertension Family History Family History Father Asthma Sibling Family history of heart disease in male family member before age 55 Mother Family history of heart disease in male family member before age 55 Social History Social History Smoking status: Never smoker Second hand tobacco smoke exposure: No Alcohol intake: never Substance use: never Substance use type: does not use Gender identity (if verbalized by the patient): Male Spiritual care concerns: No Comments At time of signature, I have reviewed and agree with nursing past medical, surgical, social and family history unless otherwise noted. Please see the nursing chart for further information. There is no relevant family history pertinent to the presenting complaint. Exam Narrative: CONST: No acute distress. Well nourished. HENMT: Head is normocephalic and atraumatic. Dry muc
[2023-03-21] MEDS: ACETAMINOPHEN 500 MG TABLET 1000 MG PO (19:42)
[2023-03-21 19:53] LABS: Basophils Percent Auto 0.2 % (0.2-1.2); Eosinophils Percent Auto 0.2 % (0-4.4); Hematocrit 40.5 % (42.0-52.0); Immature Granulocyte Absolute 0.01 K/mm3 (0.00-0.031); Immature Granulocyte Percent A 0.2 % (0-0.5); Lymphocytes Absolute Auto 0.32 K/mm3 (0.9-3.2); Mean Corpuscular HGB Conc 32.1 g/dl (32-36); Mean Corpuscular Hemoglobin 29.7 pg (26-34); Mean Corpuscular Volume 92.7 fl (80-100); Mean Platelet Volume 8.6 fl (7.4-10.4); Monocytes Absolute Auto 0.7 K/mm3 (0.1-0.6); Monocytes Percent Auto 10.5 % (2.6-8.5); Neutrophils Absolute Auto 5.4 K/mm3 (1.3-6.7); Neutrophils Percent Auto 83.9 % (45.5-73.1); Platelet Count Result 209 k/mm3 (150-375); Red Blood Count 4.37 M/mm3 (4.6-6.20); Red Cell Distribution Width 13.9 % (11.5-14.5); White Blood Count 6.4 K/mm3 (4.5-10.0)
[2023-03-21] MEDS: SODIUM CHLORIDE 0.9% IV 2,500 ML/1,000 ML BAG 999 ML IV CONT ×2 (19:54→21:06)
[2023-03-21 20:08] LABS: Magnesium 1.7 mg/dL (1.6-2.3)
[2023-03-21 20:09] LABS: Lactic Acid Reflex 0.9 mmol/L (0.7-2.0)
[2023-03-21 20:10] LABS: Alveolar/Arterial O2 Gradient 79.2 mmHg; Base Excess ABG 1.5 mEq/l (+/-2.0); Fractional Inspired Oxygen 28 %; HCO3 ABG 26.6 mEq/l (22.0-26.0); Oxygen Content ABG 16.8 %vol (16.0-22.0); Oxygen Saturation ABG 93.8 % (95.0-100.0); Oxyhemoglobin 91.5 % THb (90.0-100.0); PCO2 ABG 43.7 mmHg (35.0-45.0); PO2 ABG 68.9 mmHg (80.0-100.0); PO2 FiO2 Ratio Arterial Blood 2.46 %; pH ABG 7.402 (7.350-7.450)
[2023-03-21 20:10] LABS: Alanine Aminotransferase 33 U/L (6-50); Albumin Level 4.1 g/dL (3.5-5.1); Alkaline Phosphatase 95 U/L (38-126); Anion Gap 10 mmol/L (8-16); Aspartate Amino Transferase 34 U/L (17-59); Bilirubin,Total 0.6 mg/dL (0.2-1.3); Blood Urea Nitrogen 26 mg/dL (9-20); Calcium 9.2 mg/dL (8.4-10.2); Carbon Dioxide 28 mmol/L (22-30); Chloride 99 mmol/L (98-107); Estimated CRCL calculation 65 ml/min; Estimated Glomerular Filt Rate > 60; Glucose 103 mg/dL (65-110); Lipase 53 U/L (23-300); Potassium 3.2 mmol/L (3.4-5.0); Sodium 137 mmol/L (137-145)
[2023-03-21 20:14] LABS: Device NASAL CANNULA; Modified Allen's Test Pass; Site Drawn LEFT RADIAL
[2023-03-21 20:18] LABS: Troponin I 0.019 ng/mL (0.000-0.034)
[2023-03-21 20:27] LABS: Creatine Kinase 211 U/L (55-170)
[2023-03-21 20:28] LABS: Influenza A QL RT-PCR Positive (Negative); Influenza B QL RT-PCR Negative (Negative); RSV RNA, RT-PCR Negative (Negative); SARS-CoV-2 RNA PCR Negative (Negative)
[2023-03-21 20:28] LABS: INR 1.1; Prothrombin Time 14.2 Seconds (11.1-14.7)
[2023-03-21 20:29] LABS: Partial Thromboplastin Time 29.8 SECONDS (22.3-36.8)
[2023-03-21 20:54] LABS: Thyroid Stimulating Hormone Reflex 0.452 uIU/mL (0.465-4.68)
--- NOTE | 2023-03-21 21:03 | PM.IMHP ---
H&P: HPI History of Present Illness Date/Time: 03/21/23 21:03 Chief Complaint: Shoulder pain Narrative: This is a 77-year-old male with past medical history significant for COPD/asthma, BPH, hypertension, gait disturbance, patient uses walker as an aid, also uses wheelchair. Patient presents to the emergency room after falling having shoulder pain and unable to transfer from wheelchair. Preliminary workup was significant for patient tested positive for influenza type A was rule out for influenza type B RSV and COVID. Patient was found to have low pulse ox on room air and required supplemental oxygen by nasal cannula. EXAMINATION: XR shoulder RT min 2V DATE: 03/21/2023 19:46 INDICATION: Right shoulder injury. Fall. TECHNIQUE: 2 views of right shoulder were obtained. COMPARISON: None. FINDINGS: Bone alignment is normal. No fracture. There is mild osteoarthritis of glenohumeral joint and severe osteoarthritis of acromioclavicular joint. A right-sided ventriculoperitoneal shunt is noted. IMPRESSION: 1. Polyarticular osteoarthritis. EXAMINATION: XR chest 1V portable DATE: 03/21/2023 19:46 INDICATION: Sepsis. TECHNIQUE: A single frontal view of the chest was obtained. COMPARISON: Chest single view 10/18/2022, CT abdomen and pelvis 10/01/2021 FINDINGS: There are chronic airspace opacities in the lower lung zones, consistent with calcified pleural plaques and chronic lung disease. No pleural effusion or pneumothorax. The heart size is normal. There is a right-sided ventriculoperitoneal shunt. IMPRESSION: 1. Chronic airspace opacities in the lower lung zones, consistent with calcified pleural plaques and chronic lung disease. Review of Systems Review of Systems: Fall, shoulder pain, generalized malaise [facility] Past Medical History Medical History Hypertension Family History Family History Father Asthma Sibling Family history of heart disease in male family member before age 55 Mother Family history of heart disease in male family member before age 55 Social History Social History Smoking status: Never smoker Second hand tobacco smoke exposure: No Alcohol intake: never Substance use: never Substance use type: does not use Do You Feel Safe in your Home?: Yes Lack of Transportation: No Lack of Food: Never True Current Housing: I Have Housing Concerned About Future Housing: No Difficulty Paying Gas/Electric Bills: No Difficulty Paying for Meds: No Currently Unemployed: No Education: Grade School Difficulty w/ Childcare or Family Care: No Gender identity (if verbalized by the patient): Male Spiritual care concerns: No Meds Home Medications and Allergies Home Medications Medication Instructions Recorded Confirmed Type acetaminophen 325 mg tablet 650 mg PO BID 10/02/21 03/21/23 History baclofen 10 mg tablet 1 tablet PO TID 10/02/21 03/21/23 History budesonide-formoterol HFA 80 2 inh inhalation BID 10/02/21 03/21/23 History mcg-4.5 mcg/actuation aerosol inhaler (Symbicort) cetirizine 10 mg tablet (Zyrtec) 10 mg PO HS 10/02/21 03/22/23 History docusate sodium 100 mg capsule 100 mg PO BID 10/02/21 03/21/23 History fluticasone propionate 50 1 ea intranasal DAILY 10/02/21 03/21/23 History mcg/actuation nasal spray,suspension lisinopril 10 1 tablet PO DAILY 10/02/21 03/21/23 History mg-hydrochlorothiazide 12.5 mg tablet magnesium hydroxide 400 mg/5 mL 30 ml PO DAILY PRN Constipation 10/02/21 03/21/23 History oral suspension (Milk of Magnesia) montelukast 10 mg tablet 1 tablet PO HS 10/02/21 03/21/23 History nystatin 100,000 unit/gram topical 1 applic topical BID PRN Rash 10/02/21 03/21/23 History cream polyethylene glycol 3350 17 g PO DAILY 10/02/21
--- NOTE | 2023-03-21 21:05 | PC.NURSE ---
Patient received 2500 mL of Normal Saline ending at 2106.
[2023-03-21 21:17] LABS: Appearance Urine Clear (Clear); Bacteria Urine None Seen /hpf; Bilirubin Urine Negative (Negative); Blood Urine 1+ (Negative); Color Urine Yellow (Yellow); Glucose Urine UA Negative (Negative); Ketones Urine 2+ mg/dL (Negative); Leukocyte Esterase Ur Negative LEU/UL (Negative); Nitrate Urine Negative (Negative); Non Pathogenic Casts 0-2; Protein Urine 2+ mg/dL (Negative); Specific Grav Ur 1.022 (1.001-1.035); Squamous Epithelial Cell Urine None seen /hpf (Few); Urobilinogen Urine 0.2 mg/dL (<2.0); WBC Urine 0-5 /hpf
[2023-03-21] MEDS: POTASSIUM CHLORIDE 20 MEQ PACKET (FOR LIQUID) 40 MEQ PO (21:21)
[2023-03-21] MEDS: OSELTAMIVIR PHOSPHATE 75 MG CAPSULE PO (21:21)
[2023-03-21] MEDS: VANCOMYCIN 2,000 MG/NS 500 ML 2,000 MG/500 ML BAG 250 MG IVPB (21:21)
[2023-03-21 21:25] LABS: Add Urine Microscopic? YES
[2023-03-21 21:30] LABS: Amphetamine Screen Urine Negative (Negative); Barbiturate Screen Urine Negative (Negative); Benzodiazepines Screen Urine Negative (Negative); Cannabinoid Screen Urine Negative (Negative); Cocaine Screen Urine Negative (Negative); Methadone Screen Urine Negative (Negative); Opiate Screen Urine Negative (Negative); Phencyclidine Screen Urine Negative (Negative)
[2023-03-21 22:04] LABS: Free T4 Free Thyroxine Reflex 1.59 ng/dL (0.78-2.19)
[2023-03-21 22:19] LABS: MRSA (PCR) NOT DETECTED (NOT DETECTE)
--- NOTE | 2023-03-21 23:28 | ADMGEN ---
This patient, Jaison Wahl, was admitted to Medical Room 244-. Patient/family oriented to hospital policies and general routines including ID bracelet, bed and alarms, visiting hours, pain management, procedures, bathroom and other care routines, personal items, smoking policy, room service/diet, and visiting hours. Information on how to activate the Rapid Response Team has been discussed. Patient/Family are encouraged to report perceived risks to care and to ask questions if they do not understand what they are told or what they should do.
[2023-03-22] VITALS (15 sets, daily range): BP systolic 114–140; BP diastolic 60–75; PULSE 72–170; RESP 16–18; TEMP 36.7–37.3; O2SAT 94–98
[2023-03-22] MEDS: SODIUM CHLORIDE 0.9% IV 1,000 ML 125 ML IV CONT ×3 (00:21→18:32)
--- NOTE | 2023-03-22 00:50 | PC.NURSE ---
03/22/23 @ 0040: JORDAN W/ DR. RUDOLPH RE: PT HAVING EPISODIC 6 SEC RUNS OF TACHYCARDIA IN THE 150s THEN NSR IN THE 80s NSR. PT ASYMPTOMATIC DURING THESE EPISODES. DR. RUDOLPH AWARE OF PT PMHX AND STATES WILL ADDRESS RESUMPTION OF HOME MEDS.
[2023-03-22 05:23] LABS: Estimated CRCL calculation 73 ml/min; Estimated Glomerular Filt Rate > 60
[2023-03-22] MEDS: FLUTICASONE/SALMETEROL 45-21 MCG INHALER 1 PUFF 2 PUFF INHALATION ×2 (07:03→19:23)
[2023-03-22 07:27] LABS: Basophils Percent Auto 0.2 % (0.2-1.2); Hematocrit 37.5 % (42.0-52.0); Hemoglobin 11.9 g/dL (14.0-18.0); Immature Granulocyte Absolute 0.01 K/mm3 (0.00-0.031); Immature Granulocyte Percent A 0.2 % (0-0.5); Lymphocytes Percent Auto 17.3 % (18.3-44.2); Mean Corpuscular HGB Conc 31.7 g/dl (32-36); Mean Corpuscular Volume 94.5 fl (80-100); Monocytes Absolute Auto 0.9 K/mm3 (0.1-0.6); Neutrophils Absolute Auto 4.4 K/mm3 (1.3-6.7); Neutrophils Percent Auto 68.3 % (45.5-73.1); Platelet Count Result 187 k/mm3 (150-375); Red Blood Count 3.97 M/mm3 (4.6-6.20); Red Cell Distribution Width 14.3 % (11.5-14.5); White Blood Count 6.4 K/mm3 (4.5-10.0)
[2023-03-22 07:54] LABS: Anion Gap 7 mmol/L (8-16); Blood Urea Nitrogen 21 mg/dL (9-20); Calcium 8.1 mg/dL (8.4-10.2); Carbon Dioxide 24 mmol/L (22-30); Chloride 107 mmol/L (98-107); Estimated CRCL calculation 73 ml/min; Estimated Glomerular Filt Rate > 60; Glucose 87 mg/dL (65-110); Potassium 3.4 mmol/L (3.4-5.0); Sodium 138 mmol/L (137-145)
[2023-03-22] MEDS: guaiFENesin 12 HR 600 MG TABCR PO ×2 (10:44→21:00)
[2023-03-22] MEDS: DOCUSATE SODIUM 100 MG CAPSULE PO ×2 (10:45→18:31)
[2023-03-22] MEDS: FLUTICASONE PROPIONATE 0.05% NA SPR 16 GM BTL (*BKC) 1 SPRAY NASAL (10:45)
[2023-03-22] MEDS: ROFLUMILAST 500 MCG TABLET PO (10:45)
[2023-03-22] MEDS: OSELTAMIVIR PHOSPHATE 75 MG CAPSULE PO ×2 (10:45→21:00)
[2023-03-22] MEDS: ACIDOPHILUS/BULGARICUS CHEWABLE TABLET 1 TABLET PO ×2 (10:45→18:31)
[2023-03-22] MEDS: ACETAMINOPHEN 325 MG TABLET 650 MG PO ×2 (10:45→21:00)
[2023-03-22] MEDS: GABAPENTIN 100 MG CAPSULE PO ×2 (10:45→18:31)
[2023-03-22] MEDS: amLODIPine BESYLATE 5 MG TABLET PO (10:45)
[2023-03-22] MEDS: TAMSULOSIN HCL 0.4 MG CAPSULE 0.8 MG PO (10:45)
[2023-03-22] MEDS: BACLOFEN 10 MG TABLET PO ×3 (10:45→18:31)
[2023-03-22] MEDS: polyethylene glycoL 3350 17 GM POWD.PACK PO (10:46)
--- NOTE | 2023-03-22 13:08 | PM.IMPN ---
Progress Note: A&P Assessment and Plan (1) Fall: Code(s): W19.XXXA - Unspecified fall, initial encounter Status: Acute Assessment and Plan: Fall precautions XR shoulder arthritis only, no acute injury PT OT to evaluate for d/c planning as he currently lives alone (2) Influenza A: Code(s): J10.1 - Influenza due to other identified influenza virus with other respiratory manifestations Status: Acute Assessment and Plan: 1L O2 - work to wean as not on oxygen at baseline azithromycin and Rocephin started in ER, will continue for now tamiflu BC pending Supportive care (3) Hypoxia: Code(s): R09.02 - Hypoxemia Status: Acute Assessment and Plan: On 1L O2 by NC - work to wean CXR showed chronic airspace opacities in the lower lung zones, consistent with calcified pleural plaques and chronic lung disease BC pending (4) Hypertension: Code(s): I10 - Essential (primary) hypertension Status: Acute Assessment and Plan: continue to monitor resume home amlodipine and lisinopril (5) COPD with asthma: Code(s): J44.89 - Other specified chronic obstructive pulmonary disease Status: Chronic Assessment and Plan: CXR showed chronic airspace opacities in the lower lung zones, consistent with calcified pleural plaques and chronic lung disease Continue home meds Subjective Date/time seen: 03/22/23 13:08 Exam Narrative: CONST: No acute distress. Well nourished. HENMT: Head is normocephalic and atraumatic. Dry mucous membranes. No posterior oropharynx erythema. EYES: EOMI. PERRL. NECK: SUPPLE RESP: Normal respiratory effort. Lung sounds present, mild rhonchi at bases. CARDIO: RRR. Present pedal pulses bilaterally. GI: Nondistended. No tenderness to palpation. Soft. BS present. SKIN: No rashes or lesions noted on exposed skin. NEURO: A&O x3. Moves all extremities. PSYCH: Normal affect. Pleasant and cooperative. Objective Data Vital Signs Vital Signs: Vital Signs - 24 hr 03/21/23 18:45 03/21/23 18:49 03/21/23 20:17 Temperature 101.6 F H Pulse Rate 130 H 110 H Respiratory Rate 22 H 18 Blood Pressure 140/96 H 136/80 Pulse Oximetry 89 L 95 97 Oxygen Delivery Room Air Nasal Cannula Oxygen Flow Rate 2 03/21/23 21:51 03/21/23 22:34 03/21/23 22:49 Temperature Pulse Rate 130 H 88 88 Respiratory Rate 15 16 15 Blood Pressure 106/52 L 100/48 L 110/52 L Pulse Oximetry 97 97 99 Oxygen Delivery Oxygen Flow Rate 03/21/23 23:17 03/22/23 00:00 03/21/23 23:30 Temperature 98.6 F Pulse Rate 94 83 Respiratory Rate 16 Blood Pressure 116/59 L Pulse Oximetry 97 97 Oxygen Delivery Nasal Cannula Oxygen Flow Rate 2 03/22/23 04:00 03/22/23 05:11 03/22/23 07:05 Temperature 98.0 F Pulse Rate 90 95 99 Respiratory Rate 18 18 Blood Pressure 140/75 Pulse Oximetry 97 96 Oxygen Delivery Nasal Cannula Oxygen Flow Rate 1 03/22/23 07:05 03/22/23 10:45 Temperature Pulse Rate 99 72 Respiratory Rate 18 18 Blood Pressure 128/60 Pulse Oximetry 98 Oxygen Delivery Oxygen Flow Rate Intake/Output Intake/Output: Intake & Output 03/19/23 03/20/23 03/21/23 03/22/23 23:59 23:59 23:59 23:59 Intake Total 3050 1770 Output Total 300 Balance 3050 1470 Meds/Results Medications: Active Medications Generic Name Dose Route Start Last Admin Trade Name Freq PRN Reason Stop Dose Admin Acetaminophen 650 mg 03/21/23 21:05 Acetaminophen 325 Mg Tablet PO Q4H PRN Mild Pain (1-3) or Fever Acetaminophen 650 mg 03/22/23 09:00 03/22/23 10:45 Acetaminophen 325 Mg Tablet PO 650 mg Q12HR LATISHA Administration Albuterol 2 puff 03/22/23 05:09 Albuterol Sulfate (*Sp) Aerosol 1 Puff INHALATION QIDRT PRN shortness of breath or wheezin Amlodipine Besylate 5 mg 03/22/23 09:00 03/22/23 10:45 Amlodipine Besylate 5 Mg Tablet PO 5
[2023-03-22] MEDS: ENOXAPARIN 40 MG/0.4 ML SYRINGE SUB-Q (14:35)
[2023-03-22] MEDS: ALBUTEROL SULFATE (*SP) AEROSOL 1 PUFF 2 PUFF INHALATION (19:24)
[2023-03-22] MEDS: LORATADINE 10 MG TABLET PO (21:00)
[2023-03-22] MEDS: MONTELUKAST SODIUM 10 MG TABLET PO (21:01)
[2023-03-22] MEDS: AZITHROMYCIN 500 MG/NS 250 ML 500 MG/250 ML BAG 250 MG IVPB (21:58)
[2023-03-23] VITALS (16 sets, daily range): BP systolic 122–146; BP diastolic 66–81; PULSE 77–144; RESP 16–20; TEMP 36.7–36.9; O2SAT 94–99
[2023-03-23] MEDS: SODIUM CHLORIDE 0.9% IV 1,000 ML 125 ML IV CONT ×3 (03:56→20:41)
[2023-03-23 05:08] LABS: Basophils Percent Auto 0.2 % (0.2-1.2); Eosinophils Percent Auto 0.4 % (0-4.4); Hematocrit 34.7 % (42.0-52.0); Hemoglobin 11.3 g/dL (14.0-18.0); Immature Granulocyte Absolute 0.01 K/mm3 (0.00-0.031); Immature Granulocyte Percent A 0.2 % (0-0.5); Lymphocytes Absolute Auto 1.44 K/mm3 (0.9-3.2); Lymphocytes Percent Auto 31.7 % (18.3-44.2); Mean Corpuscular HGB Conc 32.6 g/dl (32-36); Mean Corpuscular Hemoglobin 30.4 pg (26-34); Mean Corpuscular Volume 93.3 fl (80-100); Mean Platelet Volume 8.9 fl (7.4-10.4); Monocytes Absolute Auto 0.6 K/mm3 (0.1-0.6); Monocytes Percent Auto 12.3 % (2.6-8.5); Neutrophils Absolute Auto 2.5 K/mm3 (1.3-6.7); Neutrophils Percent Auto 55.2 % (45.5-73.1); Platelet Count Result 163 k/mm3 (150-375); Red Blood Count 3.72 M/mm3 (4.6-6.20); Red Cell Distribution Width 14.2 % (11.5-14.5); White Blood Count 4.5 K/mm3 (4.5-10.0)
[2023-03-23 05:32] LABS: Anion Gap 8 mmol/L (8-16); Blood Urea Nitrogen 12 mg/dL (9-20); Calcium 7.6 mg/dL (8.4-10.2); Carbon Dioxide 25 mmol/L (22-30); Chloride 105 mmol/L (98-107); Estimated CRCL calculation 95 ml/min; Estimated Glomerular Filt Rate > 60; Glucose 81 mg/dL (65-110); Sodium 138 mmol/L (137-145)
[2023-03-23] MEDS: FLUTICASONE/SALMETEROL 45-21 MCG INHALER 1 PUFF 2 PUFF INHALATION ×2 (09:21→20:16)
[2023-03-23] MEDS: DOCUSATE SODIUM 100 MG CAPSULE PO ×2 (10:06→16:55)
[2023-03-23] MEDS: ACIDOPHILUS/BULGARICUS CHEWABLE TABLET 1 TABLET PO ×2 (10:06→16:55)
[2023-03-23] MEDS: amLODIPine BESYLATE 5 MG TABLET PO (10:06)
[2023-03-23] MEDS: POTASSIUM CHLORIDE 20 MEQ PACKET (FOR LIQUID) 40 MEQ PO (10:06)
[2023-03-23] MEDS: ROFLUMILAST 500 MCG TABLET PO (10:06)
[2023-03-23] MEDS: ACETAMINOPHEN 325 MG TABLET 650 MG PO ×2 (10:06→20:45)
[2023-03-23] MEDS: guaiFENesin 12 HR 600 MG TABCR PO ×2 (10:07→20:46)
[2023-03-23] MEDS: polyethylene glycoL 3350 17 GM POWD.PACK PO (10:07)
[2023-03-23] MEDS: OSELTAMIVIR PHOSPHATE 75 MG CAPSULE PO ×2 (10:07→20:45)
[2023-03-23] MEDS: GABAPENTIN 100 MG CAPSULE PO ×2 (10:07→16:55)
[2023-03-23] MEDS: FLUTICASONE PROPIONATE 0.05% NA SPR 16 GM BTL (*BKC) 1 SPRAY NASAL (10:07)
[2023-03-23] MEDS: TAMSULOSIN HCL 0.4 MG CAPSULE 0.8 MG PO (10:07)
[2023-03-23] MEDS: BACLOFEN 10 MG TABLET PO ×3 (10:07→16:55)
[2023-03-23] MEDS: ENOXAPARIN 40 MG/0.4 ML SYRINGE SUB-Q (10:13)
--- NOTE | 2023-03-23 14:06 | PM.IMPN ---
Progress Note: A&P Assessment and Plan (1) Fall: Code(s): W19.XXXA - Unspecified fall, initial encounter Status: Acute Assessment and Plan: Fall precautions XR shoulder arthritis only, no acute injury PT OT to evaluate for d/c planning as he currently lives alone (2) Influenza A: Code(s): J10.1 - Influenza due to other identified influenza virus with other respiratory manifestations Status: Acute Assessment and Plan: now on room air azithromycin and Rocephin started in ER, will continue for now tamiflu BC pending Supportive care (3) Hypoxia: Code(s): R09.02 - Hypoxemia Status: Acute Assessment and Plan: now on room air CXR showed chronic airspace opacities in the lower lung zones, consistent with calcified pleural plaques and chronic lung disease BC pending (4) Hypertension: Code(s): I10 - Essential (primary) hypertension Status: Acute Assessment and Plan: continue to monitor resume home amlodipine and lisinopril (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 His lung sounds are more wheezy than yesterday, having a mild cough. Will order neb treatments. Mild hypokalemia on labs today, will replete and monitor. BC still pending with no growth to date. Will plan for d/c once placement organized, hopeful for tomorrow. Review of Systems Review of Systems: All systems reviewed & are unremarkable except as noted in HPI and below Exam Narrative: CONST: No acute distress. Well nourished. HENMT: Head is normocephalic and atraumatic. Dry mucous membranes. No posterior oropharynx erythema. EYES: EOMI. PERRL. NECK: SUPPLE RESP: Normal respiratory effort. Lung sounds present, mild rhonchi at bases, wheezes at upper lobes. CARDIO: RRR. Present pedal pulses bilaterally. GI: Nondistended. No tenderness to palpation. Soft. BS present. SKIN: No rashes or lesions noted on exposed skin. NEURO: A&O x3. Moves all extremities. PSYCH: Normal affect. Pleasant and cooperative. Objective Data Vital Signs Vital Signs: Vital Signs - 24 hr 03/22/23 16:29 03/22/23 16:00 03/22/23 19:24 Temperature Pulse Rate 78 97 Respiratory Rate 18 Blood Pressure Pulse Oximetry 95 Oxygen Delivery Room Air 03/22/23 19:26 03/22/23 20:53 03/23/23 05:06 Temperature 98.2 F 98.4 F Pulse Rate 78 80 Respiratory Rate 16 16 Blood Pressure 122/71 129/81 Pulse Oximetry 97 94 Oxygen Delivery Room Air 03/22/23 20:00 03/23/23 00:00 03/23/23 04:00 Temperature Pulse Rate 81 77 79 Respiratory Rate Blood Pressure Pulse Oximetry Oxygen Delivery 03/23/23 10:00 03/23/23 10:18 03/23/23 08:00 Temperature Pulse Rate 82 144 H Respiratory Rate 18 Blood Pressure 122/66 Pulse Oximetry 98 Oxygen Delivery Room Air 03/23/23 09:55 03/23/23 12:00 Temperature Pulse Rate 83 Respiratory Rate Blood Pressure Pulse Oximetry 98 Oxygen Delivery Room Air Intake/Output Intake/Output: Intake & Output 03/20/23 03/21/23 03/22/23 03/23/23 23:59 23:59 23:59 23:59 Intake Total 3050 3610 2610 Output Total 1000 850 Balance 3050 2610 1760 Meds/Results Medications: Active Medications Generic Name Dose Route Start Last Admin Trade Name Freq PRN Reason Stop Dose Admin Acetaminophen 650 mg 03/21/23 21:05 Acetaminophen 325 Mg Tablet PO Q4H PRN Mild Pain (1-3) or Fever Acetaminophen 650 mg 03/22/23 09:00 03/23/23 10:06 Acetaminophen 325 Mg Tablet PO 650 mg Q12HR [facility] Administ
[2023-03-23] MEDS: ALBUTEROL SULFATE NEB 2.5 MG/3 ML INH INHALATION ×2 (14:46→20:14)
[2023-03-23] MEDS: AZITHROMYCIN 500 MG/NS 250 ML 500 MG/250 ML BAG 250 MG IVPB (20:42)
[2023-03-23] MEDS: LORATADINE 10 MG TABLET PO (20:46)
[2023-03-23] MEDS: MONTELUKAST SODIUM 10 MG TABLET PO (20:46)
[2023-03-24] VITALS (19 sets, daily range): BP systolic 125–142; BP diastolic 60–74; PULSE 82–145; RESP 16–18; TEMP 36.8–37.2; O2SAT 92–96
[2023-03-24] MEDS: ALBUTEROL SULFATE NEB 2.5 MG/3 ML INH INHALATION ×4 (02:17→20:44)
[2023-03-24 05:40] LABS: Hemoglobin 10.9 g/dL (14.0-18.0); Mean Corpuscular HGB Conc 32.1 g/dl (32-36); Mean Corpuscular Hemoglobin 29.8 pg (26-34); Mean Corpuscular Volume 92.9 fl (80-100); Mean Platelet Volume 8.9 fl (7.4-10.4); Platelet Count Result 149 k/mm3 (150-375); Red Blood Count 3.66 M/mm3 (4.6-6.20); Red Cell Distribution Width 13.8 % (11.5-14.5); White Blood Count 7.5 K/mm3 (4.5-10.0)
[2023-03-24 05:51] LABS: Anion Gap 4 mmol/L (8-16); Blood Urea Nitrogen 9 mg/dL (9-20); Calcium 7.6 mg/dL (8.4-10.2); Carbon Dioxide 27 mmol/L (22-30); Chloride 105 mmol/L (98-107); Estimated CRCL calculation 112 ml/min; Estimated Glomerular Filt Rate > 60; Glucose 94 mg/dL (65-110); Potassium 3.1 mmol/L (3.4-5.0); Sodium 136 mmol/L (137-145)
[2023-03-24] MEDS: OSELTAMIVIR PHOSPHATE 75 MG CAPSULE PO ×2 (09:05→20:23)
[2023-03-24] MEDS: ACIDOPHILUS/BULGARICUS CHEWABLE TABLET 1 TABLET PO ×2 (09:05→18:34)
[2023-03-24] MEDS: GABAPENTIN 100 MG CAPSULE PO ×2 (09:05→18:35)
[2023-03-24] MEDS: ACETAMINOPHEN 325 MG TABLET 650 MG PO ×2 (09:06→20:23)
[2023-03-24] MEDS: TAMSULOSIN HCL 0.4 MG CAPSULE 0.8 MG PO (09:06)
[2023-03-24] MEDS: amLODIPine BESYLATE 5 MG TABLET PO (09:06)
[2023-03-24] MEDS: guaiFENesin 12 HR 600 MG TABCR PO ×2 (09:06→20:24)
[2023-03-24] MEDS: DOCUSATE SODIUM 100 MG CAPSULE PO ×2 (09:06→18:34)
[2023-03-24] MEDS: ROFLUMILAST 500 MCG TABLET PO (09:06)
[2023-03-24] MEDS: BACLOFEN 10 MG TABLET PO ×3 (09:06→18:34)
[2023-03-24] MEDS: POTASSIUM CHLORIDE 20 MEQ PACKET (FOR LIQUID) 40 MEQ PO ×2 (09:06→18:35)
[2023-03-24] MEDS: polyethylene glycoL 3350 17 GM POWD.PACK PO (09:06)
[2023-03-24] MEDS: CALCIUM CARBONATE (OSCAL) 500 MG TABLET PO ×2 (09:06→18:34)
[2023-03-24] MEDS: FLUTICASONE PROPIONATE 0.05% NA SPR 16 GM BTL (*BKC) 1 SPRAY NASAL (09:07)
[2023-03-24] MEDS: ENOXAPARIN 40 MG/0.4 ML SYRINGE SUB-Q (09:07)
--- NOTE | 2023-03-24 09:13 | ECG_ITS ---
Measurements Intervals [place] Rate: 90 P: 68 TN: 167 QRS: 24 QRSD: 154 T: 0 QT: 392 QTc: 482 Interpretive Statements SINUS RHYTHM VENTRICULAR PREMATURE COMPLEX RIGHT BUNDLE BRANCH BLOCK BASELINE ARTIFACT- I, II, III, AVR, AVL, AVF ABNORMAL ECG COMPARED TO ECG 03/21/2023 20:24:06 SINUS RHYTHM NOW PRESENT Electronically Signed On 03-24-2023 9:33:14 DESIGN INTERN by Petr Leung D.O.
[2023-03-24] MEDS: FLUTICASONE/SALMETEROL 45-21 MCG INHALER 1 PUFF 2 PUFF INHALATION ×2 (09:35→20:44)
--- NOTE | 2023-03-24 13:55 | PM.IMPN ---
Progress Note: A&P Assessment and Plan (1) Fall: Code(s): W19.XXXA - Unspecified fall, initial encounter Status: Acute Assessment and Plan: Fall precautions XR shoulder arthritis only, no acute injury PT OT to evaluate for d/c planning as he currently lives alone (2) Influenza A: Code(s): J10.1 - Influenza due to other identified influenza virus with other respiratory manifestations Status: Acute Assessment and Plan: on room air tamiflu BC pending, no growth to date Supportive care (3) Hypoxia: Code(s): R09.02 - Hypoxemia Status: Acute Assessment and Plan: now on room air CXR showed chronic airspace opacities in the lower lung zones, consistent with calcified pleural plaques and chronic lung disease BC pending (4) Hypertension: Code(s): I10 - Essential (primary) hypertension Status: Acute Assessment and Plan: continue to monitor resume home amlodipine and lisinopril (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 His lung sounds are improved with nebs. Repeat CXR shows no changes from previous. Patient has intermittent tachycardia, but is asymptomatic. Repeat EKG unchanged from prior. Continue to replete potassium and monitor. BC still pending with no growth to date. Will plan for d/c once placement organized, hopeful for tomorrow. Review of Systems Review of Systems: All systems reviewed & are unremarkable except as noted in HPI and below Exam Narrative: CONST: No acute distress. Well nourished. HENMT: Head is normocephalic and atraumatic. Dry mucous membranes. No posterior oropharynx erythema. EYES: EOMI. PERRL. NECK: SUPPLE RESP: Normal respiratory effort. Lung sounds present, mild rhonchi at bases. CARDIO: RRR. Present pedal pulses bilaterally. GI: Nondistended. No tenderness to palpation. Soft. BS present. SKIN: No rashes or lesions noted on exposed skin. NEURO: A&O x3. Moves all extremities. PSYCH: Normal affect. Pleasant and cooperative. Objective Data Vital Signs Vital Signs: Vital Signs - 24 hr 03/23/23 14:00 03/23/23 14:46 03/23/23 14:55 Temperature 98.0 F Pulse Rate 96 83 91 Respiratory Rate 18 18 18 Blood Pressure 125/68 Pulse Oximetry 99 Oxygen Delivery 03/23/23 14:55 03/23/23 16:00 03/23/23 20:16 Temperature Pulse Rate 83 86 Respiratory Rate 18 Blood Pressure Pulse Oximetry 97 Oxygen Delivery Room Air 03/23/23 20:17 03/23/23 20:23 03/23/23 20:00 Temperature 98.1 F Pulse Rate 80 78 Respiratory Rate 20 18 Blood Pressure 146/70 H Pulse Oximetry 97 99 98 Oxygen Delivery Room Air Room Air 03/23/23 20:00 03/23/23 21:45 03/24/23 02:18 Temperature 98.1 F Pulse Rate 80 90 Respiratory Rate 18 Blood Pressure Pulse Oximetry Oxygen Delivery 03/24/23 03:30 03/24/23 00:00 03/24/23 04:00 Temperature 98.9 F Pulse Rate 88 90 88 Respiratory Rate 16 Blood Pressure 134/63 Pulse Oximetry 92 Oxygen Delivery 03/24/23 09:04 03/24/23 09:37 03/24/23 09:37 Temperature Pulse Rate 88 83 Respiratory Rate 17 18 Blood Pressure 125/60 Pulse Oximetry 96 96 Oxygen Delivery Room Air 03/24/23 09:50 03/24/23 08:03 03/24/23 08:11 Temperature Pulse Rate 90 145 H 87 Respiratory Rate 18 Blood Pressure Pulse Oximetry Oxygen Delivery 03/24/23 08:52 Temperature Pulse Rate 90 Respiratory Rate Blood Pressure Pulse Oximetry Oxygen Delivery Intake/Output Intake/Output: Intake & Output 03/21/23 03/22/23
[2023-03-24] MEDS: MICONAZOLE NITRATE 2% CREAM 30 GM TUBE 1 APPLIC TOPICAL (18:36)
[2023-03-24] MEDS: MONTELUKAST SODIUM 10 MG TABLET PO (20:23)
[2023-03-24] MEDS: LORATADINE 10 MG TABLET PO (20:23)
[2023-03-25] VITALS (12 sets, daily range): BP systolic 153–154; BP diastolic 80–83; PULSE 78–92; RESP 18; TEMP 36.7–37; O2SAT 95–99
[2023-03-25] MEDS: ALBUTEROL SULFATE NEB 2.5 MG/3 ML INH INHALATION ×3 (01:54→13:20)
[2023-03-25 06:17] LABS: Hematocrit 36.9 % (42.0-52.0); Hemoglobin 12.3 g/dL (14.0-18.0); Mean Corpuscular HGB Conc 33.3 g/dl (32-36); Mean Corpuscular Hemoglobin 30.2 pg (26-34); Mean Corpuscular Volume 90.7 fl (80-100); Mean Platelet Volume 8.9 fl (7.4-10.4); Platelet Count Result 176 k/mm3 (150-375); Red Blood Count 4.07 M/mm3 (4.6-6.20); Red Cell Distribution Width 13.4 % (11.5-14.5); White Blood Count 7.1 K/mm3 (4.5-10.0)
[2023-03-25 06:33] LABS: Anion Gap 7 mmol/L (8-16); Blood Urea Nitrogen 7 mg/dL (9-20); Calcium 8.6 mg/dL (8.4-10.2); Carbon Dioxide 28 mmol/L (22-30); Chloride 102 mmol/L (98-107); Estimated CRCL calculation 95 ml/min; Estimated Glomerular Filt Rate > 60; Glucose 97 mg/dL (65-110); Potassium 3.4 mmol/L (3.4-5.0); Sodium 137 mmol/L (137-145)
[2023-03-25] MEDS: FLUTICASONE/SALMETEROL 45-21 MCG INHALER 1 PUFF 2 PUFF INHALATION (07:27)
[2023-03-25] MEDS: ROFLUMILAST 500 MCG TABLET PO (10:39)
[2023-03-25] MEDS: polyethylene glycoL 3350 17 GM POWD.PACK PO (10:39)
[2023-03-25] MEDS: GABAPENTIN 100 MG CAPSULE PO (10:39)
[2023-03-25] MEDS: CALCIUM CARBONATE (OSCAL) 500 MG TABLET PO (10:40)
[2023-03-25] MEDS: TAMSULOSIN HCL 0.4 MG CAPSULE 0.8 MG PO (10:40)
[2023-03-25] MEDS: POTASSIUM CHLORIDE 20 MEQ PACKET (FOR LIQUID) 40 MEQ PO (10:40)
[2023-03-25] MEDS: guaiFENesin 12 HR 600 MG TABCR PO (10:40)
[2023-03-25] MEDS: DOCUSATE SODIUM 100 MG CAPSULE PO (10:40)
[2023-03-25] MEDS: OSELTAMIVIR PHOSPHATE 75 MG CAPSULE PO (10:40)
[2023-03-25] MEDS: ACIDOPHILUS/BULGARICUS CHEWABLE TABLET 1 TABLET PO (10:40)
[2023-03-25] MEDS: ACETAMINOPHEN 325 MG TABLET 650 MG PO (10:40)
[2023-03-25] MEDS: ENOXAPARIN 40 MG/0.4 ML SYRINGE SUB-Q (10:41)
[2023-03-25] MEDS: BACLOFEN 10 MG TABLET PO ×2 (10:41→12:43)
[2023-03-25] MEDS: amLODIPine BESYLATE 5 MG TABLET PO (10:41)
[2023-03-25] MEDS: FLUTICASONE PROPIONATE 0.05% NA SPR 16 GM BTL (*BKC) 1 SPRAY NASAL (10:43)
--- NOTE | 2023-03-25 14:11 | PM.DS ---
DS: Admitting Diagnosis Discharge Date 03/25/23 Admitting Diagnosis shoulder pain DS: Discharge Diagnosis Discharge Diagnosis (1) Fall: Code(s): W19.XXXA - Unspecified fall, initial encounter Status: Acute Assessment and Plan: Fall precautions XR shoulder arthritis only, no acute injury PT/OT evaluated will return to [facility] (2) Influenza A: Code(s): J10.1 - Influenza due to other identified influenza virus with other respiratory manifestations Status: Acute Assessment and Plan: on room air tamiflu BC pending, no growth to date Supportive care (3) Hypoxia: Code(s): R09.02 - Hypoxemia Status: Resolved Assessment and Plan: now on room air CXR showed chronic airspace opacities in the lower lung zones, consistent with calcified pleural plaques and chronic lung disease BC pending (4) Hypertension: Code(s): I10 - Essential (primary) hypertension Status: Chronic Assessment and Plan: continue to monitor resume home amlodipine and lisinopril (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 His lung sounds are improved with nebs. Repeat CXR shows no changes from previous. Patient has intermittent tachycardia, but is asymptomatic. Repeat EKG unchanged from prior. Electrolytes stabilized. BC still pending with no growth to date. Will f/u with results. He is stable for d/c and able to return to [facility] today. Status at Discharge Functional status at discharge: uses cane/walker Overall status at discharge: patient is progressing back to baseline Time Spent with Patient Time attestation: Total time spent providing and/or coordinating discharge services: Exam Narrative: CONST: No acute distress. Well nourished. HENMT: Head is normocephalic and atraumatic. Dry mucous membranes. No posterior oropharynx erythema. EYES: EOMI. PERRL. NECK: SUPPLE RESP: Normal respiratory effort. Lung sounds present, mild rhonchi at bases. CARDIO: RRR. Present pedal pulses bilaterally. GI: Nondistended. No tenderness to palpation. Soft. BS present. SKIN: No rashes or lesions noted on exposed skin. NEURO: A&O x3. Moves all extremities. PSYCH: Normal affect. Pleasant and cooperative. DS: Data Data Completed and Pending Labs on day of discharge: Labs from last 24 hours 03/25/23 05:52 WBC 7.1 RBC 4.07 L Hgb 12.3 L Hct 36.9 L MCV 90.7 MCH 30.2 MCHC 33.3 RDW 13.4 Plt Count 176 MPV 8.9 Sodium 137 Potassium 3.4 Chloride 102 Carbon Dioxide 28 Anion Gap 7 L BUN 7 L Creatinine 0.60 L Estim Creat Clear Calc 95 Estimated GFR > 60 Glucose 97 Calcium 8.6 Preliminary micro results at discharge 03/21/23 19:44 Blood Culture - Preliminary Blood 03/21/23 20:10 Blood Culture - Preliminary Blood Discharge Plan Discharge Attending physician on discharge: Sixto Alejandre Discharging Clinician: Lalita Chan Anticipated Discharge Date/Time: 03/25/23 14:09 Patient Disposition: NH Long Term/Asst Living Activity: as tolerated Diet: regular Discharge Instructions: Seek immediate medical care if: You have trouble breathing. You have a fever with a stiff neck or a severe headache. You have pain or pressure in your chest or belly. You have a fever or cough that returns after getting better. You feel very sleepy, dizzy, or confused. You are not urinating. You have severe muscle pain. You have severe weakness, or you are unsteady. You have medical conditions that are getting worse. Patient Instructions: Antibiotic Form,
--- NOTE | 2023-03-27 10:32 | PC.NURSE ---
Blood cultures are negative.
== END 2023-03-25 15:15 | DRG 195 ==
LOC: ANHED 20:48 → ANH2MED 22:53
PROVIDERS: Admitting Provider Internal Medicine; Emergency Provider Student in an Organized Health Care Education/Training Program; PCP Hospitalist; Visit Provider Nurse Practitioner
DX: J10.1 Influenza due to other identified influenza virus with other respiratory manifestations (principal); Z20.822 Contact with and (suspected) exposure to COVID-19; R09.02 Hypoxemia; W19.XXXA Unspecified fall, initial encounter; I10 Essential (primary) hypertension; J44.9 Chronic obstructive pulmonary disease, unspecified; E87.6 Hypokalemia; M19.011 Primary osteoarthritis, right shoulder; N40.0 Benign prostatic hyperplasia without lower urinary tract symptoms
CPT/HCPCS: 36415; 36600; 71045; 73030; 80048; 80053; 80307; 81001; 82550; 82565; 82805; 83605; 83690; 83735; 84439; 84443; 84480; 84484; 85025; 85027; 85610; 85730; 86140; 87040; 87637; 87641; 93005; 94640; 96361; 96365; 96366; 96367; 97110; 97161; 97166; 97530; 97535; 99285; A9270; G0378; J0456; J0696; J1650; J3370; J7030

== ENCOUNTER 2023-04-01 14:18 | Emergency (ER) | payer MEDICARE, OTHER, MEDICAID, SELFPAY ==
--- NOTE | ~2023-04-01 | CT_ITS ---
EXAMINATION: CT diagnostic chest wo con DATE: 04/01/2023 16:07 INDICATION: Right rib pain after fall TECHNIQUE: Computed tomography (CT) of the chest was performed without intravenous contrast. The dose -length product (DLP) was 548.32 mGy-cm. Automated exposure control and iterative reconstruction tech [employer] were employed. COMPARISON: 01/21/2009 FINDINGS: No displaced right-sided rib fracture is identified. A bone island is noted posteriorly in the right third rib. There is a healed right 11th rib fracture. Calcified pleural plaque is noted pos teriorly in the right hemithorax which can be seen in the setting of prior asbestos exposure. No pleu ral effusion or pneumothorax. There are airspace opacities of the lower lobes, left greater than righ t. No pathologically enlarged thoracic lymph nodes are identified. The heart size is normal. There is a 4.5 cm fusiform aneurysm of the ascending aorta. There is moderate thoracic and severe cervical sp ondylosis. IMPRESSION: 1. No acute rib fracture identified. 2. Airspace opacities of the lower lobes, left greater than right, consistent with pneumonia. 3. Fusiform aneurysm of the ascending aorta. Reviewed, dictated and finalized at location [facility]. [facility] [employer] IMPRESSION: 1. No acute rib fracture identified. 2. Airspace opacities of the lower lobes, left greater than right, consistent w ith pneumonia. 3. Fusiform aneurysm of the ascending aorta.
--- NOTE | ~2023-04-01 | CT_ITS ---
EXAMINATION: CT brain wo con INDICATION: Head injury COMPARISON: 02/05/2023 TECHNIQUE: Standard unenhanced head CT. The dose-length product (DLP) was 908.00 mGy-cm. The mA was a djusted according to patient size. Iterative reconstruction technique was employed. FINDINGS: No acute intraparenchymal hemorrhage. No evidence of mass lesion. No evidence of acute infa rction. There is moderate periventricular and subcortical hypodensity probably related to small vesse l ischemic disease. There is moderate prominence of the sulci and ventricles related to cerebral atro phy. Intracranial calcified cerebral atherosclerosis is noted. A right-sided craniotomy is again note d. There is a chronic extra-axial fluid collection on the right abutting the frontal lobe with mass e ffect on the right frontal lobe. A shunt catheter tube is seen in the fluid collection with its tip e nding at the midline near the skull base. The catheter tubing is again noted to be discontinuous near the craniotomy defect. The orbits and soft tissues are unremarkable. The visualized sinuses and mast oid air cells are well aerated. IMPRESSION: 1. Chronic right-sided extra-axial fluid collection with mass effect on the frontal lobe. No acute in tracranial abnormality. 2. Age related findings. 3. Chronic discontinuity of the shunt catheter near the craniotomy defect. Reviewed, dictated and finalized at location [facility] IMPRESSION: 1. Chronic right-sided extra-axial fluid collection with mass effect on the fro ntal lobe. No acute intracranial abnormality. 2. Age related findings. 3. Chronic discontinuity of the shunt catheter near the craniotomy defect.
--- NOTE | ~2023-04-01 | CT_ITS ---
EXAMINATION: CT cervical spine wo con DATE: 04/01/2023 16:05 INDICATION: Fall with head injury TECHNIQUE: Computed tomography (CT) of the cervical spine was performed without intravenous contrast. Automated exposure control and iterative reconstruction technique were employed. The dose-length pro duct was 468.44 mGy-cm. COMPARISON: 02/05/2023 FINDINGS: 40 degrees cervical levoscoliosis. 2 mm anterolisthesis C6 on C7. Chronic mild anterior wedging of C7 . C5-C6 anterior spinal fusion. No acute fracture. Moderate disc height loss at C2-C3 through C4-C5 a nd mild decreased disc height loss at C6-C7 and C7-T1. There is multilevel severe left-sided facet os teoarthritis with fusion of the right C4-C5 and C5-C6 facet joints. Mild to moderate osteoarthritis a t the left-sided cervical facet joints. Parotic bone island in the right third rib. Mild right apical pleural-parenchymal scarring. Likely ventricular shunt catheter tubing extending caudally along the right anterior side of the neck. IMPRESSION: 1. No acute osseous abnormality. 2. 40 degrees cervical levoscoliosis with moderate to severe spondylosis. See prior report for level by level detail. Reviewed, dictated and finalized at location A. [facility] IMPRESSION: 1. No acute osseous abnormality. 2. 40 degrees cervical levoscoliosis with moderate to severe spondylosis. See p rior report for level by level detail.
[2023-04-01 14:50] VITALS: BP 122/74; PULSE 94; RESP 18; TEMP 36.6; O2SAT 97
--- NOTE | 2023-04-01 15:34 | ED.GENADULT ---
HPI - General Adult General Chief complaint: Fall <Ramiro Alcaraz PA-C - Last Filed: 04/01/23 16:05> Stated complaint: fall <Ramiro Alcaraz PA-C - Last Filed: 04/01/23 16:05> Time Seen by Provider: 04/01/23 15:31 <Ramiro Alcaraz PA-C - Last Filed: 04/01/23 16:05> Source: patient <ALEKSEY Mcmahan Last Filed: 04/01/23 16:05> Mode of arrival: EMS <ALEKSEY Mcmahan Last Filed: 04/01/23 16:05> Limitations: no limitations <ALEKSEY Mcmahan Last Filed: 04/01/23 16:05> History of Present Illness HPI narrative: This is a 77-year-old male who presents to the ED via EMS from [facility] with chief complaint of a fall. Patient reports that he fell forwards out of his chair. He reports that he ?must of dozed off. Patient reports that he has had but denies LOC. reports that he has intermittent rib pain but currently feels largely asymptomatic. <ALEKSEY Mcmahan Last Filed: 04/01/23 16:05> This is a 77-year-old male who presents to the ED via EMS from [facility] with chief complaint of a fall. Patient reports that he fell forwards out of his wheelchair. He reports that he ?must of dozed off. Patient reports that he hit his head but denies LOC. reports that he has intermittent rib pain but currently feels largely asymptomatic. Per records, patient was diagnosed with influenza A on 03/21/2022. He does have persistent cough. Denies shortness of breath. Denies any other acute complaints or areas of pain. <Lashell Alvares PA-C - Last Filed: 04/01/23 21:53> Related Data Home medications: Home Medications Medication Instructions Recorded Confirmed acetaminophen 325 mg tablet 650 mg PO BID 10/02/21 03/21/23 baclofen 10 mg tablet 1 tablet PO TID 10/02/21 03/21/23 budesonide-formoterol HFA 80 2 inh inhalation BID 10/02/21 03/21/23 mcg-4.5 mcg/actuation aerosol inhaler (Symbicort) cetirizine 10 mg tablet (Zyrtec) 10 mg PO HS 10/02/21 03/22/23 docusate sodium 100 mg capsule 100 mg PO BID 10/02/21 03/21/23 fluticasone propionate 50 1 ea intranasal DAILY 10/02/21 03/21/23 mcg/actuation nasal spray,suspension lisinopril 10 1 tablet PO DAILY 10/02/21 03/21/23 mg-hydrochlorothiazide 12.5 mg tablet magnesium hydroxide 400 mg/5 mL 30 ml PO DAILY PRN Constipation 10/02/21 03/21/23 oral suspension (Milk of Magnyola) montelukast 10 mg tablet 1 tablet PO HS 10/02/21 03/21/23 nystatin 100,000 unit/gram topical 1 applic topical BID PRN Rash 10/02/21 03/21/23 cream polyethylene glycol 3350 17 g PO DAILY 10/02/21 03/21/23 potassium chloride 10 mEq 1 tablet PO DAILY 10/02/21 03/21/23 tablet,extended release (Klor-Con) roflumilast 500 mcg tablet 1 tablet PO DAILY 10/02/21 03/21/23 (Daliresp) amlodipine 5 mg tablet 5 mg PO DAILY 10/18/22 03/21/23 ergocalciferol (vitamin D2) 1,250 mg PO WEEKLY 10/18/22 03/22/23 guaifenesin 600 mg PO BID 10/18/22 03/21/23 tamsulosin 0.8 mg PO DAILY 10/18/22 03/22/23 Lactobacillus acidophilus 2,000 mmu cells PO BID 03/21/23 03/21/23 (Acidophilus capsule) benzonatate 100 mg capsule 100 mg PO BID PRN Cough 03/21/23 03/21/23 furosemide 20 mg tablet 20 mg PO DAILY 03/21/23 03/21/23 gabapentin 100 mg capsule 100 mg PO BID 03/21/23 03/21/23 <Ramiro Alcaraz PA-C - Last Filed: 04/01/23 16:05> Allergies/adverse reactions: Allergies Allergy/AdvReac Type Severity Reaction Status Date / Time Penicillins Allergy Severe Unknown Verified 03/22/23 07:21 aspirin AdvReac Severe Vomiting Verified 02/05/23 07:22 <Ramiro Alcaraz PA-C - Last Filed: 04/01/23 16:05> Review of Systems Review of Systems: All systems as dictated in HPI <Ramiro Alcaraz PA-C - Last Filed: 04/01/23 16:05> [facility] Past Medical History Medical History: Medical History Hypertension <Ramiro Alcaraz PA-C - Last Filed: 04/01/23 16:05> Family History Family History:
[2023-04-01 16:25] LABS: Appearance Urine Clear (Clear); Bilirubin Urine Negative (Negative); Blood Urine Negative (Negative); Color Urine Yellow (Yellow); Glucose Urine UA Negative (Negative); Ketones Urine Negative (Negative); Leukocyte Esterase Ur Negative LEU/UL (Negative); Nitrate Urine Negative (Negative); Protein Urine Negative (Negative); Specific Grav Ur 1.019 (1.001-1.035); Urobilinogen Urine 0.2 mg/dL (<2.0); pH Urine 6.5 (5.0-9.0)
[2023-04-01 16:36] LABS: Add Urine Microscopic? NO
[2023-04-01 20:30] VITALS: BP 139/78; PULSE 92; RESP 16; O2SAT 95
== END 2023-04-01 21:40 ==
PROVIDERS: Physician Assistant; Emergency Provider Physician Assistant; PCP Hospitalist
DX: S09.90XA Unspecified injury of head, initial encounter (principal); J18.9 Pneumonia, unspecified organism; I10 Essential (primary) hypertension; M47.812 Spondylosis without myelopathy or radiculopathy, cervical region; I71.9 Aortic aneurysm of unspecified site, without rupture; W05.0XXA Fall from non-moving wheelchair, initial encounter
CPT/HCPCS: 70450; 71250; 72125; 81003; 99284

== ENCOUNTER 2023-04-02 11:06 | Emergency (ER) | payer MEDICARE, OTHER, MEDICAID, SELFPAY ==
[2023-04-02] VITALS (12 sets, daily range): BP systolic 106–153; BP diastolic 53–96; PULSE 89–99; RESP 14–20; TEMP 36.5–36.7; O2SAT 94–99
--- NOTE | ~2023-04-02 | CT_ITS ---
EXAMINATION: CT brain wo con DATE: 04/02/2023 11:44 INDICATION: Anticoagulated patient post fall TECHNIQUE: Computed tomography (CT) of the head was performed without intravenous contrast. Sagittal and coronal reconstructions were performed. The mA was adjusted according to patient size. Iterative reconstruction technique was employed. The dose-length product was 2421.33 mGy-cm. COMPARISON: head CT dated 04/01/2023 and 02/05/2023 FINDINGS: No fracture. Interval change in size of a large chronic right frontotemporoparietal extra-axial fluid collection, the majority of which is isodense to the CSF . There is a small region of the fluid luiz ection near the vertex which now demonstrates subtly increased density relative to the CSF raising co ncern for a minimal amount of hemorrhage. There are changes of a chronic right sided craniotomy. Ther e is also right-sided drainage catheter within the fluid collection with the tip near the midline at the anterior margin of the supra sellar cistern. The catheter remains discontinuous near the posterio r margin of the craniotomy, not extending through the calvarium. There is a valve superficial to the posterior margin of the craniotomy with additional catheter tubing extending caudally the subcutaneou s tissues at the posterior calvarium and lateral aspect of the visualized right neck. No acute intrac ranial hemorrhage, acute infarction or new extra axial fluid collection. There is mild scattered whit e matter hypoattenuation consistent with chronic small vessel ischemic disease. There is increased pr ominence of the sulci and ventricles consistent with moderate age-appropriate diffuse cerebral volume loss. No soft tissue masses identified. Mild mucosal thickening the paranasal sinuses. The orbits an d mastoid air cells are normal. IMPRESSION: 1. Subtle increased density at the cephalad aspect of an otherwise unchanged large CSF attenuation ch ronic right frontotemporoparietal extra-axial fluid collection which suggests a minimal amount of acu te hemorrhage into the fluid collection. 2. Unchanged discontinuous shunt catheter within the right extra-axial fluid collection. 3. Age-related changes including moderate diffuse volume loss and mild scattered white matter hypoatt enuation consistent with chronic small vessel ischemic disease. Reviewed, dictated and finalized at location A. NT BOAT AND BARGE LOADER IMPRESSION: 1. Subtle increased density at the cephalad aspect of an otherwise unchanged la rge CSF attenuation chronic right frontotemporoparietal extra-axial fluid colle ction which suggests a minimal amount of acute hemorrhage into the fluid collec tion. 2. Unchanged discontinuous shunt catheter within the right extra-axial fluid co llection. 3. Age-related changes including moderate diffuse volume loss and mild scattere d white matter hypoattenuation consistent with chronic small vessel ischemic di sease.
--- NOTE | ~2023-04-02 | CT_ITS ---
EXAMINATION: CT cervical spine wo con DATE: 04/02/2023 11:45 INDICATION: Fall TECHNIQUE: Computed tomography (CT) of the cervical spine was performed without intravenous contrast. Automated exposure control and iterative reconstruction technique were employed. The dose-length pro duct was 136.60 mGy-cm. COMPARISON: 04/01/2023 and 02/05/2023 FINDINGS: Unchanged 40 degrees cervical levoscoliosis. 2 mm anterolisthesis C6 on C7. Chronic mild anterior wed ging at C7. No acute fracture. Moderate disc height loss at C2-C3 through C4- C5 and mild decreased disc height loss at C6-C7 and C7-T1. There is multilevel severe left-sided face t osteoarthritis with fusion of the right C4-C5 and C5-C6 facet joints. Mild to moderate osteoarthrit is at the left-sided cervical facet joints. Mild right apical pleural-parenchymal scarring. Again see n is catheter tubing extending caudally in the subcutaneous tissues along the right side of the neck. IMPRESSION: 1. No acute osseous abnormality. 2. 40 degrees cervical levoscoliosis with moderate to severe spondylosis. See report from 02/05/2023 for level by level detail. Reviewed, dictated and finalized at location A. TEACHER IMPRESSION: 1. No acute osseous abnormality. 2. 40 degrees cervical levoscoliosis with moderate to severe spondylosis. See r eport from 02/05/2023 for level by level detail.
--- NOTE | ~2023-04-02 | CT_ITS ---
EXAMINATION: CT brain wo con DATE: 04/02/2023 16:23 INDICATION: Fall with possible small amount of intracranial hemorrhage on prior CT. TECHNIQUE: Computed tomography (CT) of the head was performed without intravenous contrast. Sagittal and coronal reconstructions were performed. The mA was adjusted according to patient size. Iterative reconstruction technique was employed. The dose-length product was 756.67 mGy-cm. COMPARISON: head CT dated 04/01/2023 and at 11:36 AM FINDINGS: No fracture. No interval change in size of a large chronic right frontotemporoparietal extra-axial fl uid collection. The previously noted subtle increased density at the cephalad aspect of the collectio n has resolved suggesting this was either artifactual or that there has been interval resolution of p rior minimal amount of hemorrhage. No new acute intracranial hemorrhage. No acute infarct or other ne w extra-axial fluid collections. There is mild scattered white matter hypoattenuation consistent with chronic small vessel ischemic disease. There is increased prominence of the sulci and ventricles con sistent with moderate age-appropriate diffuse cerebral volume loss. There are changes of a chronic right sided cr aniotomy. There is also right-sided drainage catheter within the fluid collection with the tip near t he midline at the anterior margin of the supra sellar cistern. The catheter remains discontinuous irvin r the posterior margin of the craniotomy, not extending through the calvarium. There is a valve super ficial to the posterior margin of the craniotomy with additional catheter tubing extending caudally t he subcutaneous tissues at the posterior calvarium and lateral aspect of the visualized right neck. N o soft tissue masses identified. Mild mucosal thickening in the paranasal sinuses. The orbits and mas toid air cells are normal. Intracranial calcified cerebral atherosclerosis is noted. IMPRESSION: 1. Resolution of the prior subtle increased density cephalad aspect of the otherwise unchanged large chronic right frontotemporoparietal extra-axial fluid collection which suggests either interval dilut ion of a prior minimal amount of hemorrhage without evident new hemorrhage without the prior increase d density was artifactual. 2. Age-related changes including moderate diffuse volume loss and mild scattered white matter hypoatt enuation consistent with chronic small vessel ischemic disease. 3. Stable chronic postoperative changes including fractured drainage catheter within the extra-axial fluid collection as well as overlying right craniotomy. Reviewed, dictated and finalized at location A. C D AREA SUPERVISOR IMPRESSION: 1. Resolution of the prior subtle increased density cephalad aspect of the othe rwise unchanged large chronic right frontotemporoparietal extra-axial fluid col lection which suggests either interval dilution of a prior minimal amount of he morrhage without evident new hemorrhage without the prior increased density was artifactual. 2. Age-related changes including moderate diffuse volume loss and mild scattere d white matter hypoattenuation consistent with chronic small vessel ischemic di sease. 3. Stable chronic postoperative changes including fractured drainage catheter w ithin the extra-axial fluid collection as well as overlying right craniotomy.
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
[2023-04-02 12:58] LABS: Basophils Percent Auto 0.1 % (0.2-1.2); Eosinophils Absolute Auto 0.2 K/mm3 (0-0.3); Eosinophils Percent Auto 3.1 % (0-4.4); Hematocrit 39.2 % (42.0-52.0); Hemoglobin 12.3 g/dL (14.0-18.0); Immature Granulocyte Absolute 0.03 K/mm3 (0.00-0.031); Immature Granulocyte Percent A 0.4 % (0-0.5); Lymphocytes Absolute Auto 1.29 K/mm3 (0.9-3.2); Lymphocytes Percent Auto 18.4 % (18.3-44.2); Mean Corpuscular HGB Conc 31.4 g/dl (32-36); Mean Corpuscular Hemoglobin 29.4 pg (26-34); Mean Corpuscular Volume 93.8 fl (80-100); Mean Platelet Volume 8.7 fl (7.4-10.4); Monocytes Absolute Auto 0.7 K/mm3 (0.1-0.6); Monocytes Percent Auto 10.6 % (2.6-8.5); Neutrophils Absolute Auto 4.7 K/mm3 (1.3-6.7); Neutrophils Percent Auto 67.4 % (45.5-73.1); Platelet Count Result 316 k/mm3 (150-375); Red Blood Count 4.18 M/mm3 (4.6-6.20); Red Cell Distribution Width 13.9 % (11.5-14.5)
[2023-04-02 13:08] LABS: Alanine Aminotransferase 39 U/L (6-50); Albumin Level 3.9 g/dL (3.5-5.1); Alkaline Phosphatase 86 U/L (38-126); Anion Gap 6 mmol/L (8-16); Aspartate Amino Transferase 29 U/L (17-59); Bilirubin,Total 0.4 mg/dL (0.2-1.3); Blood Urea Nitrogen 21 mg/dL (9-20); Calcium 9.4 mg/dL (8.4-10.2); Carbon Dioxide 33 mmol/L (22-30); Chloride 100 mmol/L (98-107); Estimated Glomerular Filt Rate > 60; Glucose 114 mg/dL (65-110); Potassium 3.8 mmol/L (3.4-5.0); Sodium 139 mmol/L (137-145)
[2023-04-02 13:10] LABS: Prothrombin Time 13.5 Seconds (11.1-14.7)
[2023-04-02 13:41] LABS: Influenza A QL RT-PCR Positive (Negative); Influenza B QL RT-PCR Negative (Negative); RSV RNA, RT-PCR Negative (Negative); SARS-CoV-2 RNA PCR Negative (Negative)
--- NOTE | 2023-04-02 20:42 | PC.NURSE ---
multiple calls to give report to [place]. no answer. ems returning the pt
== END 2023-04-02 20:44 ==
PROVIDERS: Emergency Provider Emergency Medicine; PCP Hospitalist
DX: S09.90XA Unspecified injury of head, initial encounter (principal); I10 Essential (primary) hypertension; Z20.822 Contact with and (suspected) exposure to COVID-19; Z99.3 Dependence on wheelchair; Z79.899 Other long term (current) drug therapy; W05.0XXA Fall from non-moving wheelchair, initial encounter; Y92.129 Unspecified place in nursing home as the place of occurrence of the external cause
CPT/HCPCS: 36415; 70450; 72125; 80053; 85025; 85610; 85730; 87637; 99284

== ENCOUNTER 2023-04-04 08:22 | Emergency (ER) | payer MEDICARE, OTHER, MEDICAID, SELFPAY ==
--- NOTE | ~2023-04-04 | CT_ITS ---
EXAMINATION: CT brain wo con DATE: 04/04/2023 08:57 INDICATION: Head injury. TECHNIQUE: Computed tomography (CT) of the head was performed without intravenous contrast. The mA wa s adjusted according to patient size. Iterative reconstruction technique was employed. The dose-lengt h product was 832.33 mGy-cm. COMPARISON: Head CT 04/02/2023 FINDINGS: There is a chronic fluid collection overlying right frontotemporal parietal region that is isodense to cerebral spinal fluid with maximum thickness of 2.7 cm. There are changes of right-sided craniotomy. There is a discontinuous right-sided shunt catheter with tip in the suprasellar cistern. There are scattered areas of low attenuation in the cerebral white matter. There is no intracranial h emorrhage, acute infarction, or abnormal intracranial mass lesion. The ventricles are normal in size. The orbits are normal. There is mild mucosal thickening in the paranasal sinuses. The mastoid air ce lls are normal. There is cerumen in the external auditory canals. IMPRESSION: 1. Stable chronic extra-axial fluid collection overlying right frontotemporal parietal region. 2. Discontinuation catheter on the right, which is chronic. 3. Stable mild nonspecific cerebral white matter disease, which likely represents chronic small vesse l ischemic disease. Reviewed, dictated and finalized at location E. T HEADER IMPRESSION: 1. Stable chronic extra-axial fluid collection overlying right frontotemporal p arietal region. 2. Discontinuation catheter on the right, which is chronic. 3. Stable mild nonspecific cerebral white matter disease, which likely represen ts chronic small vessel ischemic disease.
[2023-04-04 08:28] VITALS: BP 139/68; PULSE 90; RESP 20; TEMP 36.2; O2SAT 99
--- NOTE | 2023-04-04 09:15 | ED.FALL ---
HPI - Fall General Chief Complaint: Fall Stated Complaint: fall Time Seen by Provider: 04/04/23 09:12 History of Present Illness HPI Narrative: Patient is a 77-year-old male who presents to the emergency department this morning from his nursing facility after a fall from his wheelchair. Patient does have a history of recurrent falls and has presented to our ED multiple times in the past for similar symptoms. Today patient slipped from his wheelchair and fell to the ground and did hit the left side of his head on the floor. Patient did sustain a 2.5 cm crescent-shaped laceration to his left frontal scalp region and a small abrasion to his left ear. No additional injuries appreciated at this time. 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 Related Data Home Medications Medication Instructions Recorded Confirmed acetaminophen 325 mg tablet 650 mg PO BID 10/02/21 03/21/23 baclofen 10 mg tablet 1 tablet PO TID 10/02/21 03/21/23 budesonide-formoterol HFA 80 2 inh inhalation BID 10/02/21 03/21/23 mcg-4.5 mcg/actuation aerosol inhaler (Symbicort) cetirizine 10 mg tablet (Zyrtec) 10 mg PO HS 10/02/21 03/22/23 docusate sodium 100 mg capsule 100 mg PO BID 10/02/21 03/21/23 fluticasone propionate 50 1 ea intranasal DAILY 10/02/21 03/21/23 mcg/actuation nasal spray,suspension lisinopril 10 1 tablet PO DAILY 10/02/21 03/21/23 mg-hydrochlorothiazide 12.5 mg tablet magnesium hydroxide 400 mg/5 mL 30 ml PO DAILY PRN Constipation 10/02/21 03/21/23 oral suspension (Milk of Magnesia) montelukast 10 mg tablet 1 tablet PO HS 10/02/21 03/21/23 nystatin 100,000 unit/gram topical 1 applic topical BID PRN Rash 10/02/21 03/21/23 cream polyethylene glycol 3350 17 g PO DAILY 10/02/21 03/21/23 potassium chloride 10 mEq 1 tablet PO DAILY 10/02/21 03/21/23 tablet,extended release (Klor-Con) roflumilast 500 mcg tablet 1 tablet PO DAILY 10/02/21 03/21/23 (Daliresp) amlodipine 5 mg tablet 5 mg PO DAILY 10/18/22 03/21/23 ergocalciferol (vitamin D2) 1,250 mg PO WEEKLY 10/18/22 03/22/23 guaifenesin 600 mg PO BID 10/18/22 03/21/23 tamsulosin 0.8 mg PO DAILY 10/18/22 03/22/23 Lactobacillus acidophilus 2,000 mmu cells PO BID 03/21/23 03/21/23 (Acidophilus capsule) benzonatate 100 mg capsule 100 mg PO BID PRN Cough 03/21/23 03/21/23 furosemide 20 mg tablet 20 mg PO DAILY 03/21/23 03/21/23 gabapentin 100 mg capsule 100 mg PO BID 03/21/23 03/21/23 Allergies Allergy/AdvReac Type Severity Reaction Status Date / Time Penicillins Allergy Severe Unknown Verified 04/04/23 08:34 aspirin AdvReac Severe Vomiting Verified 04/04/23 08:34 Review of Systems Review of Systems: Unable to obtain a full review of systems secondary to patient's baseline dementia. [facility] Past Medical History Medical History Hypertension Family History Family History Father Asthma Sibling Family history of heart disease in male family member before age 55 Mother Family history of heart disease in male family member before age 55 Social History Social History Smoking status: Never smoker Second hand tobacco smoke exposure: No Alcohol intake: never Substance use: never Substance use type: does not use Do You Feel Safe in your Home?: Yes Lack of Transportation: No Lack of Food: Never True Current Housing: I Have Housing Concerned About Future Housing: No Difficulty Paying Gas/Electric Bills: No Difficulty Paying for Meds: No Currently Unemployed: No Education: Grade School Difficulty w/ Childcare or Family Care: No Gender identity (if verbalized by the patient): Male
--- NOTE | 2023-04-04 10:15 | PC.NURSE ---
Called [facility] @1010 ETA 35 Mins estimated time [id number]
[2023-04-04 10:32] VITALS: BP 143/85; PULSE 88; RESP 16; O2SAT 98
== END 2023-04-04 10:50 ==
LOC: ANHED 09:40
PROVIDERS: Emergency Provider Emergency Medicine; PCP Hospitalist
DX: S01.01XA Laceration without foreign body of scalp, initial encounter (principal); R29.6 Repeated falls; I10 Essential (primary) hypertension; W05.0XXA Fall from non-moving wheelchair, initial encounter
CPT/HCPCS: 12001; 70450; 99284

== ENCOUNTER 2023-05-10 08:26 | Inpatient (IN) | payer OTHER, MEDICAID, SELFPAY ==
[2023-05-10] VITALS (32 sets, daily range): BP systolic 91–128; BP diastolic 54–77; PULSE 60–139; RESP 16–28; TEMP 36.6–37.2; O2SAT 93–100
--- NOTE | 2023-05-10 | ECG_ITS ---
Measurements Intervals [place] Rate: 112 P: [place]: 176 QRS: -38 QRSD: 150 T: -12 QT: 349 QTc: 478 Interpretive Statements SINUS TACHYCARDIA LEFT AXIS DEVIATION [QRS AXIS < -30] RIGHT BUNDLE BRANCH BLOCK [120+ ms QRS DURATION, UPRIGHT V1, 40+ ms S IN I/aVL/V4/V5/V6] ST DEVIATION AND MODERATE T-WAVE ABNORMALITY, CONSIDER ANTERIOR ISCHEMIA [-0.1+ mV T WAVE IN V3/V4] ABNORMAL ECG COMPARED TO ECG 03/24/2023 09:28:12 HEART RATE HAS INCREASED LEFT-AXIS DEVIATION NOW PRESENT Electronically Signed On 05-11-2023 14:30:26 STAGECRAFT PROFESSOR by Kenyon Blackmon M.D.
--- NOTE | ~2023-05-10 | XR_ITS ---
Portable chest x-ray Comparison: 03/24/2023 Clinical History: Shortness of breath Findings: There is hazy bibasilar airspace disease. Cardiomediastinal silhouette is stable. Bones a nd soft tissues are unremarkable. SHIPPER/RECEIVER shunt noted. Impression: Possible mild bibasilar pulmonary edema. Correlate clinically for infection. Reviewed, dictated and finalized at [facility]. EYOR MAN Impression: Possible mild bibasilar pulmonary edema. Correlate clinically for infection.
--- NOTE | 2023-05-10 08:46 | PC.NURSE ---
Attempted to suction pt.
--- NOTE | 2023-05-10 09:09 | ECG_ITS ---
Measurements Intervals [place] Rate: 97 P: 32 MT: 177 QRS: -7 QRSD: 159 T: 3 QT: 395 QTc: 502 Interpretive Statements SINUS RHYTHM RIGHT BUNDLE BRANCH BLOCK [120+ ms QRS DURATION, UPRIGHT V1, 40+ ms S IN I/aVL/V4/V5/V6] ABNORMAL ECG COMPARED TO ECG 03/24/2023 09:28:12 PVCS ARE NOT SEEN Electronically Signed On 05-10-2023 12:47:35 COMMERCIAL AGENT by Sae Trent M.D.
--- NOTE | 2023-05-10 09:38 | ED.SOB ---
HPI - SOB/Dyspnea General Chief Complaint: Shortness of Breath/Dyspnea Stated Complaint: SOB Time Seen by Provider: 05/10/23 08:41 History of Present Illness HPI Narrative: Patient is a 77-year-old male with history of COPD, hypertension presenting with shortness of breath. Patient is coming from a nursing facility. States that around breakfast time he started to feel generally unwell. States that he feels nauseated which is relieved temporarily by belching. He started feeling short of breath and also developed a cough for on this time. He denies any pain. No chest or abdominal pain. No leg swelling. No further complaints. Related Data Home Medications Medication Instructions Recorded Confirmed acetaminophen 325 mg tablet 650 mg PO BID 10/02/21 05/10/23 baclofen 10 mg tablet 1 tablet PO TID 10/02/21 05/10/23 budesonide-formoterol HFA 80 2 inh inhalation BID 10/02/21 05/10/23 mcg-4.5 mcg/actuation aerosol inhaler (Symbicort) cetirizine 10 mg tablet (Zyrtec) 10 mg PO HS 10/02/21 05/10/23 docusate sodium 100 mg capsule 100 mg PO BID 10/02/21 05/10/23 fluticasone propionate 50 1 ea intranasal DAILY 10/02/21 05/10/23 mcg/actuation nasal spray,suspension lisinopril 10 1 tablet PO DAILY 10/02/21 05/10/23 mg-hydrochlorothiazide 12.5 mg tablet magnesium hydroxide 400 mg/5 mL 30 ml PO DAILY PRN Constipation 10/02/21 05/10/23 oral suspension (Milk of Magnesia) montelukast 10 mg tablet 1 tablet PO HS 10/02/21 05/10/23 polyethylene glycol 3350 17 g PO DAILY 10/02/21 05/10/23 potassium chloride 10 mEq 1 tablet PO DAILY 10/02/21 05/10/23 tablet,extended release (Klor-Con) roflumilast 500 mcg tablet 1 tablet PO DAILY 10/02/21 05/10/23 (Daliresp) amlodipine 5 mg tablet 5 mg PO DAILY 10/18/22 05/10/23 ergocalciferol (vitamin D2) 1,250 mg PO WEEKLY 10/18/22 05/10/23 guaifenesin 600 mg PO BID 10/18/22 05/10/23 tamsulosin 0.8 mg PO DAILY 10/18/22 05/10/23 benzonatate 100 mg capsule 100 mg PO BID PRN Cough 03/21/23 05/10/23 furosemide 20 mg tablet 20 mg PO DAILY 03/21/23 05/10/23 gabapentin 100 mg capsule 100 mg PO BID 03/21/23 05/10/23 acetaminophen 650 mg tablet 650 mg PO Q6H PRN Pain 05/10/23 05/10/23 buspirone 10 mg tablet 10 mg PO BID 05/10/23 05/10/23 multivitamin with minerals (Daily 1 tablet PO DAILY 05/10/23 05/10/23 Multivitamin-Minerals tablet) sodium chloride 0.65 % nasal spray 2 spray intranasal Q1H PRN dryness 05/10/23 05/10/23 aerosol (Saline Nasal) Allergies Allergy/AdvReac Type Severity Reaction Status Date / Time Penicillins Allergy Severe Unknown Verified 05/10/23 17:24 aspirin AdvReac Severe Vomiting Verified 05/10/23 17:24 Review of Systems Review of Systems: All systems reviewed & are unremarkable except as noted in HPI and below PMFSH Past Medical History Medical History Anxiety BPH (benign prostatic hyperplasia) Cerebrovascular disease Cognitive communication deficit COPD with asthma Generalized muscle weakness GERD (gastroesophageal reflux disease) Hypertension Osteoarthritis (arthritis due to wear and tear of joints) Presence of nonprogrammable ventriculoperitoneal shunt Scoliosis Surgical History Surgical History History of ventriculoperitoneal shunting Family History Family History Father Asthma Sibling Family history of heart disease in male family member before age 55 Mother Family history of heart disease in male family member before age 55 Social History Social History Smoking status: Never smoker Second hand tobacco smoke exposure: No Alcohol intake: never Substance use: never Substance use type: does not use Do You Feel Safe in your Home?: Yes Lack of Transportation: No Lack of Food: Never True Current Housing: I Have [facility]
[2023-05-10 09:42] LABS: Basophils Percent Auto 0.1 % (0.2-1.2); Eosinophils Percent Auto 0.1 % (0-4.4); Hematocrit 41.1 % (42.0-52.0); Hemoglobin 12.9 g/dL (14.0-18.0); Immature Granulocyte Absolute 0.06 K/mm3 (0.00-0.031); Immature Granulocyte Percent A 0.4 % (0-0.5); Lymphocytes Percent Auto 4.6 % (18.3-44.2); Mean Corpuscular HGB Conc 31.4 g/dl (32-36); Mean Corpuscular Hemoglobin 29.9 pg (26-34); Mean Corpuscular Volume 95.4 fl (80-100); Mean Platelet Volume 8.8 fl (7.4-10.4); Monocytes Absolute Auto 0.8 K/mm3 (0.1-0.6); Monocytes Percent Auto 5.5 % (2.6-8.5); Neutrophils Absolute Auto 13.5 K/mm3 (1.3-6.7); Neutrophils Percent Auto 89.3 % (45.5-73.1); Platelet Count Result 243 k/mm3 (150-375); Red Blood Count 4.31 M/mm3 (4.6-6.20); Red Cell Distribution Width 14.6 % (11.5-14.5); White Blood Count 15.2 K/mm3 (4.5-10.0)
[2023-05-10] MEDS: IPRATROPIUM BR 0.02% INH SOLN 0.5 MG/2.5 ML VIAL INHALATION (09:50)
[2023-05-10] MEDS: ONDANSETRON INJ 4 MG/2 ML VIAL IV PUSH (09:50)
[2023-05-10] MEDS: SODIUM CHLORIDE 0.9% IV 1,000 ML 999 ML IV CONT ×2 (09:50→12:03)
[2023-05-10] MEDS: ALBUTEROL SULFATE NEB 2.5 MG/3 ML INH 10 MG INHALATION (09:50)
[2023-05-10 09:55] LABS: Alanine Aminotransferase 22 U/L (6-50); Alkaline Phosphatase 93 U/L (38-126); Anion Gap 4 mmol/L (8-16); Aspartate Amino Transferase 19 U/L (17-59); Bilirubin,Total 0.7 mg/dL (0.2-1.3); Blood Urea Nitrogen 29 mg/dL (9-20); Calcium 9.2 mg/dL (8.4-10.2); Carbon Dioxide 33 mmol/L (22-30); Chloride 102 mmol/L (98-107); Estimated CRCL calculation 63 ml/min; Estimated Glomerular Filt Rate > 60; Glucose 125 mg/dL (65-110); Lipase 36 U/L (23-300); Potassium 3.3 mmol/L (3.4-5.0); Sodium 139 mmol/L (137-145)
[2023-05-10 09:58] LABS: Hypochromasia 1+ (NORMAL); Platelet Estimate Adequate (Adequate); Schistocytes None Seen (NORMAL)
[2023-05-10 10:00] LABS: Lactic Acid Reflex 1.6 mmol/L (0.7-2.0)
[2023-05-10 10:04] LABS: INR 1.1; Prothrombin Time 14.5 Seconds (11.1-14.7)
[2023-05-10 10:05] LABS: NT Pro B Type Natriuretic Pept 150 pg/mL (19.9-100); Troponin I < 0.012 ng/mL (0.000-0.034)
[2023-05-10 10:39] LABS: Influenza A QL RT-PCR Negative (Negative); Influenza B QL RT-PCR Negative (Negative); RSV RNA, RT-PCR Negative (Negative); SARS-CoV-2 RNA PCR Negative (Negative)
[2023-05-10 10:54] LABS: Appearance Urine Cloudy (Clear); Bacteria Urine 4+ /hpf; Bilirubin Urine Negative (Negative); Blood Urine 1+ (Negative); Color Urine Yellow (Yellow); Glucose Urine UA Negative (Negative); Ketones Urine Negative (Negative); Leukocyte Esterase Ur 2+ LEU/UL (Negative); Need Manual Microscopic Reviewed; Nitrate Urine Positive (Negative); Protein Urine 3+ mg/dL (Negative); RBC Urine 0-2 /hpf (0-2); Specific Grav Ur 1.019 (1.001-1.035); Squamous Epithelial Cell Urine None seen /hpf (Few); Urobilinogen Urine 0.2 mg/dL (<2.0); WBC Urine >100 /hpf; pH Urine 7.5 (5.0-9.0)
[2023-05-10 10:55] LABS: Add Urine Microscopic? YES
[2023-05-10] MEDS: cefTRIAXone 2 GM/NS 100 ML 2 GM/100 ML BAG IVPB (11:26)
[2023-05-10] MEDS: AZITHROMYCIN 500 MG/NS 250 ML 500 MG/250 ML BAG 250 MG IVPB (12:04)
[2023-05-10 12:48] LABS: Troponin I < 0.012 ng/mL (0.000-0.034)
--- NOTE | 2023-05-10 12:54 | PC.NURSE ---
Spoke with Sommer from [place] and gave update on pts admission status.
[2023-05-10] MEDS: IPRATROPIUM 0.5 MG/ALBUTEROL SULFATE 2.5 MG AMPUL.NEB 3 ML INHALATION ×2 (14:20→20:02)
--- NOTE | 2023-05-10 14:30 | PM.IMHP ---
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 Patient presents here via EMS from [place] for evaluation of new SOB. Reports general malaise, nausea, cough (dry) that started this morning. Nausea has been temporarily relieved with belching, has since completely resolved. No aggravating or alleviating factors for SOB. No fever, chills, or body aches. No sick contacts. Any LE swelling - symmetric or asymmetric. Patient denies hematuria or dysuria. Endorsing urinary frequency over the last 2-3 days. Patient states he is feeling improved since arrival. Also denying palpitations, chest discomfort, diaphoresis, jaw pain, and epigastric pain. Having runs of tachycardia (130-150's) that self-abort and are asymptomatic since arrival to the floor. Initial VS at presentation: 97.9 F, HR 123, RR 19, 122/62, 90% on RA. Patient's BP soft through ED evaluation and tachycardia resolved. ED workup showed Leukocytosis with WBC of 15.9, stable anemia with hgb of 12.9, trop negative x2, BNP 150, and UA consistent with UTI. CXR shows possible mild bibasilar pulmonary edema, correlate clinically for infection. Review of Systems Review of Systems: All systems reviewed & are unremarkable except as noted in HPI and below PMFSH Past Medical History Medical History (Updated 05/10/23 @ 21:44 by Lisa Vega APRN) Anxiety BPH (benign prostatic hyperplasia) Cerebrovascular disease Cognitive communication deficit COPD with asthma Generalized muscle weakness GERD (gastroesophageal reflux disease) Hypertension Osteoarthritis (arthritis due to wear and tear of joints) Presence of nonprogrammable ventriculoperitoneal shunt Scoliosis Surgical History Surgical History (Updated 05/10/23 @ 21:29 by Lisa Vega APRN) History of ventriculoperitoneal shunting Family History Family History Father Asthma Sibling Family history of heart disease in male family member before age 55 Mother Family history of heart disease in male family member before age 55 Social History Social History Smoking status: Never smoker Second hand tobacco smoke exposure: No Alcohol intake: never Substance use: never Substance use type: does not use Do You Feel Safe in your Home?: Yes Lack of Transportation: No Lack of Food: Never True Current Housing: I Have Housing Concerned About Future Housing: No Difficulty Paying Gas/Electric Bills: No Difficulty Paying for Meds: No Currently Unemployed: No Education: Decline to Answer Difficulty w/ Childcare or Family Care: No Gender identity (if verbalized by the patient): Male Spiritual care concerns: No Meds Home Medications and Allergies Home Medications Medication Instructions Recorded Confirmed Type acetaminophen 325 mg tablet 650 mg PO BID 10/02/21 05/10/23 History baclofen 10 mg tablet 1 tablet PO TID 10/02/21 05/10/23 History budesonide-formoterol HFA 80 2 inh inhalation BID 10/02/21 05/10/23 History mcg-4.5 mcg/actuation aerosol inhaler (Symbicort) cetirizine 10 mg tablet (Zyrtec) 10 mg PO HS 10/02/21 05/10/23 History docusate sodium 100 mg capsule 100 mg PO BID 10/02/21 05/10/23 History fluticasone propionate 50 1 ea intranasal DAILY 10/02/21 05/10/23 History mcg/actuation nasal spray,suspension lisinopril 10 1 tablet PO DAILY 10/02/21 05/10/23 History mg-hydrochlorothiazide 12.5 mg tablet magnesium hydroxide 400 mg/5 mL 30 ml PO DAILY PRN Constipation 10/02/21 05/10/23 History oral suspension (Milk of Magnesia) montelukast 10 mg tablet 1 tablet PO HS 10/02/21 05/10/23 History polyethylene glycol 3350 17 g PO DAILY 10/02/21 05/10/23 History potassium chloride 10 mEq 1 tablet PO DAILY 10/02/21 05/10/23 History
[2023-05-10 15:19] LABS: Lactic Acid Reflex 1.3 mmol/L (0.7-2.0)
[2023-05-10] MEDS: LACTATED RINGERS 1,000 ML 100 ML IV CONT (15:31)
[2023-05-10 15:34] LABS: Troponin I < 0.012 ng/mL (0.000-0.034)
--- NOTE | 2023-05-10 16:15 | ADMGEN ---
This patient, Jaison Wahl, was admitted to Medical Room 251-. Patient/family oriented to hospital policies and general routines including ID bracelet, bed and alarms, visiting hours, pain management, procedures, bathroom and other care routines, personal items, smoking policy, room service/diet, and visiting hours. Information on how to activate the Rapid Response Team has been discussed. Patient/Family are encouraged to report perceived risks to care and to ask questions if they do not understand what they are told or what they should do.
[2023-05-10 17:05] LABS: Glucose Point of Care 129 mg/dl (65-105)
[2023-05-10] MEDS: predniSONE 20 MG TABLET 40 MG PO (17:55)
[2023-05-10 20:06] LABS: Glucose Point of Care 135 mg/dl (65-105)
[2023-05-10 20:25] LABS: MRSA (PCR) NOT DETECTED (NOT DETECTE)
[2023-05-10] MEDS: HYDROcodone/acetaminophen (*CRX) 5-325 MG TABLET 1 TAB PO (20:26)
--- NOTE | 2023-05-10 21:39 | ECG_ITS ---
Measurements Intervals [place] Rate: 92 P: 36 [place]: 163 QRS: -5 QRSD: 153 T: -4 QT: 382 QTc: 474 Interpretive Statements SINUS RHYTHM WITH SINUS ARRHYTHMIA BASELINE ARTIFACT RIGHT BUNDLE BRANCH BLOCK [120+ ms QRS DURATION, UPRIGHT V1, 40+ ms S IN I/aVL/V4/V5/V6] WARNING: DATA QUALITY MAY AFFECT INTERPRETATION ABNORMAL ECG COMPARED TO ECG 05/10/2023 12:24:55 SINUS ARRHYTHMIA NOW PRESENT Electronically Signed On 05-11-2023 14:39:39 BULK FILLER by Kenyon Blackmon M.D.
[2023-05-10] MEDS: POTASSIUM CHLORIDE INJ 40 MEQ in SODIUM CHLORIDE 0.9% IV 500 ML 130 MEQ IVPB (22:39)
[2023-05-10] MEDS: guaiFENesin 12 HR 600 MG TABCR PO (22:39)
[2023-05-10] MEDS: busPIRone HCL 10 MG TABLET PO (22:39)
[2023-05-10] MEDS: GABAPENTIN 100 MG CAPSULE PO (22:39)
[2023-05-10] MEDS: BACLOFEN 10 MG TABLET PO (22:39)
[2023-05-10] MEDS: MONTELUKAST SODIUM 10 MG TABLET PO (22:39)
[2023-05-10] MEDS: POTASSIUM CHLORIDE 20 MEQ PACKET (FOR LIQUID) 40 MEQ PO (22:40)
[2023-05-11] VITALS (18 sets, daily range): BP systolic 112–135; BP diastolic 53–70; PULSE 83–100; RESP 16–22; TEMP 36.2–37.4; O2SAT 93–98
[2023-05-11 05:21] LABS: Basophils Percent Auto 0.1 % (0.2-1.2); Hematocrit 35.8 % (42.0-52.0); Hemoglobin 11.2 g/dL (14.0-18.0); Immature Granulocyte Absolute 0.07 K/mm3 (0.00-0.031); Immature Granulocyte Percent A 0.6 % (0-0.5); Lymphocytes Absolute Auto 0.71 K/mm3 (0.9-3.2); Lymphocytes Percent Auto 5.8 % (18.3-44.2); Mean Corpuscular HGB Conc 31.3 g/dl (32-36); Mean Corpuscular Hemoglobin 29.9 pg (26-34); Mean Corpuscular Volume 95.7 fl (80-100); Mean Platelet Volume 8.9 fl (7.4-10.4); Monocytes Absolute Auto 0.2 K/mm3 (0.1-0.6); Monocytes Percent Auto 1.7 % (2.6-8.5); Neutrophils Absolute Auto 11.3 K/mm3 (1.3-6.7); Neutrophils Percent Auto 91.8 % (45.5-73.1); Platelet Count Result 241 k/mm3 (150-375); Red Blood Count 3.74 M/mm3 (4.6-6.20); Red Cell Distribution Width 14.5 % (11.5-14.5); White Blood Count 12.3 K/mm3 (4.5-10.0)
--- NOTE | 2023-05-11 05:26 | PCRCNOTE ---
Window of time for administration has passed. See next scheduled administration.
[2023-05-11 05:35] LABS: Alanine Aminotransferase 24 U/L (6-50); Albumin Level 3.3 g/dL (3.5-5.1); Alkaline Phosphatase 82 U/L (38-126); Anion Gap 3 mmol/L (8-16); Aspartate Amino Transferase 22 U/L (17-59); Bilirubin,Total 0.4 mg/dL (0.2-1.3); Blood Urea Nitrogen 20 mg/dL (9-20); Calcium 8.7 mg/dL (8.4-10.2); Carbon Dioxide 29 mmol/L (22-30); Chloride 107 mmol/L (98-107); Estimated CRCL calculation 80 ml/min; Estimated Glomerular Filt Rate > 60; Glucose 126 mg/dL (65-110); Potassium 4.8 mmol/L (3.4-5.0); Sodium 139 mmol/L (137-145)
[2023-05-11] MEDS: BACLOFEN 10 MG TABLET PO ×3 (05:57→20:58)
[2023-05-11] MEDS: LACTATED RINGERS 1,000 ML 100 ML IV CONT ×2 (06:45→18:45)
[2023-05-11] MEDS: FLUTICASONE/SALMETEROL 45-21 MCG INHALER 1 PUFF 2 PUFF INHALATION ×2 (07:44→20:39)
[2023-05-11] MEDS: IPRATROPIUM 0.5 MG/ALBUTEROL SULFATE 2.5 MG AMPUL.NEB 3 ML INHALATION ×3 (07:44→20:37)
[2023-05-11 08:20] LABS: Glucose Point of Care 113 mg/dl (65-105)
[2023-05-11] MEDS: POTASSIUM CHLORIDE 10 MEQ ER TABLET PO (08:21)
[2023-05-11] MEDS: busPIRone HCL 10 MG TABLET PO ×2 (08:21→20:58)
[2023-05-11] MEDS: ACETAMINOPHEN 325 MG TABLET 650 MG PO ×2 (08:21→17:42)
[2023-05-11] MEDS: GABAPENTIN 100 MG CAPSULE PO ×2 (08:22→20:58)
[2023-05-11] MEDS: guaiFENesin 12 HR 600 MG TABCR PO ×2 (08:22→20:58)
[2023-05-11] MEDS: lisinopriL 10 MG TABLET PO (08:22)
[2023-05-11] MEDS: ROFLUMILAST 500 MCG TABLET PO (08:22)
[2023-05-11] MEDS: hydroCHLOROthiazide 12.5 MG CAPSULE PO (08:22)
[2023-05-11] MEDS: THERAPEUTIC MULTIVITAMINS/MINERALS TAB (*BKC) 1 TABLET PO (08:23)
[2023-05-11] MEDS: amLODIPine BESYLATE 5 MG TABLET PO (08:23)
[2023-05-11] MEDS: DOCUSATE SODIUM 100 MG CAPSULE PO ×2 (08:23→17:42)
[2023-05-11] MEDS: TAMSULOSIN HCL 0.4 MG CAPSULE 0.8 MG PO (08:23)
[2023-05-11] MEDS: predniSONE 20 MG TABLET 40 MG PO (08:23)
[2023-05-11] MEDS: FUROSEMIDE 20 MG TABLET PO (08:23)
[2023-05-11] MEDS: polyethylene glycoL 3350 17 GM POWD.PACK PO (08:26)
[2023-05-11] MEDS: FLUTICASONE PROPIONATE 0.05% NA SPR 16 GM BTL (*BKC) 1 SPRAY NASAL (08:32)
[2023-05-11] MEDS: PANTOPRAZOLE 40 MG TABLET PO (08:43)
[2023-05-11] MEDS: AZITHROMYCIN 500 MG/NS 250 ML 500 MG/250 ML BAG 250 MG IVPB (09:03)
[2023-05-11 09:13] LABS: Hemoglobin A1C 5.5 % (<5.7)
--- NOTE | 2023-05-11 10:04 | PM.CNCAR ---
Assessment and Plan Assessment and plan (1) Paroxysmal supraventricular tachycardia: Code(s): I47.10 - Supraventricular tachycardia, unspecified Status: Acute Assessment and Plan: Incidental discovery of recurrent self limited paroxysmal supraventricular tachycardia without evidence of atrial fibrillation or atrial flutter thus far. Patient is generally asymptomatic or minimally aware per his description. Initiate metoprolol tartrate 25 mg twice daily as tolerated. TSH slightly low 0.452 on 03/21/2023 unlikely contributing to clinical SVT recurrence. I suspect reduction in arrhythmia risk as patient is recovers further with treatment for underlying pneumonia. I would continue telemetry for now to observe tolerance to AV sury blocking agents. If stable without recurrence may discontinue telemetry in 24 hours. We discussed clinical significance, management options including AV sury blocking agents. Need to monitor for symptomatic bradycardia medical therapy. Will need to monitor for AF or atrial flutter but not identified thus far. If noted systemic anticoagulation would be advised. DVT prophylaxis for now. (2) Pneumonia: Qualifiers: Laterality: bilateral Lung location: lower lobe of lung Pneumonia type: due to unspecified organism Qualified Code(s): J18.9 - Pneumonia, unspecified organism Code(s): J18.9 - Pneumonia, unspecified organism Status: Acute Assessment and Plan: Continue IV ceftriaxone and azithromycin per primary service. Continue steroids with prednisone, bronchodilator therapy and supportive care further direction. (3) Acute hypokalemia: Code(s): E87.6 - Hypokalemia Status: Acute Assessment and Plan: Patient previously hypokalemic but subsequently repleted potassium now in normal range at 4.8. Continue to monitor closely. Hypokalemia will further contribute to recurrent SVT risk. (4) Hypertension: Code(s): I10 - Essential (primary) hypertension Status: Chronic Assessment and Plan: BP reasonably controlled at present. Transient relative hypotension yesterday improved thus far. If ongoing relative hypotension may discontinue hydrochlorothiazide and/or hold Lasix. For now may continue amlodipine 5 mg daily, lisinopril 10 mg daily, hydrochlorothiazide 12.5 mg daily. (5) Right bundle branch block: Code(s): I45.10 - Unspecified right bundle-branch block Status: Acute Assessment and Plan: Chronic. (6) Acute UTI: Code(s): N39.0 - Urinary tract infection, site not specified Status: Acute Assessment and Plan: Management per primary service with ceftriaxone clinical support. 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 Patient denies fevers, chills, chest pain or syncope. He denies lower extremity edema or dysuria. Falling denies palpitations he admits to occasional subtle where this with perhaps a fluttering in his chest but no other associated symptoms. Since admission he has been treated for COPD with underlying pneumonia for which prednisone taper was added in addition to ceftriaxone and azithromycin. Bronchodilator therapy. Patient is improving clinically. On telemetry patient has had several episodes of supraventricular tachycardia which patient is generally asymptomatic or most vaguely aware transiently. No clear atrial fibrillation atrial flutter thus far. Patient is not currently on AV sury blocking agents. Review of Systems Revie
[2023-05-11 11:46] LABS: Glucose Point of Care 98 mg/dl (65-105)
--- NOTE | 2023-05-11 13:03 | P.PNIM_ITS ---
Progress Note: A&P Assessment and Plan (1) Sepsis: Qualifiers: Sepsis acute organ dysfunction status: without acute organ dysfunction Sepsis type: sepsis due to unspecified organism Qualified Code(s): A41.9 - S epsis, unspecified organism Code(s): A41.9 - Sepsis, unspecified organism Status: Acute (2) Pneumonia: Qualifiers: Laterality: bilateral Lung location: lower lobe of lung Pneumonia type: due to unspecified organism Qualified Code(s): J18.9 - Pneumonia, unspecified organism Code(s): J18.9 - Pneumonia, unspecified organism Status: Acute (3) Tachycardia, paroxysmal: Code(s): I47.9 - Paroxysmal tachycardia, unspecified Status: Acute (4) Acute UTI: Code(s): N39.0 - Urinary tract infection, site not specified Status: Acute (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 30mg/kg for septic shock * empiric IV antibiotic therapy * Monitor lactic acid levels q6hr. WNL 1.3 * Two sets of blood cultures NGTD * urine cultures. Pending- * PTT and PT, INR. * Chest x-ray CAP versus aspiration PNA vs Pulmonary edema * Monitor albumin, monitoring of mental status. * glucose monitoring and control Pneumonia * CAP vs aspiration * Bronchodilators. * Chest x-ray There is hazy bibasilar airspace disease.? Cardiomediastinal silhouette is stable. Bones and soft tissues are unremarkable. MANAGEMENT ACCOUNTANT shunt noted. * incentive spirometry while awake. * sputum culture ordered * influenza/COVID/RSV negative * antibiotic therapy * Guaifenesin b.i.d. * supplemental oxygen therapy to maintain oxygen 92% * NPO * Swallow evaluation to rule out aspiration patient with previous TBI and reports coughing and difficulty swallowing with food Tachycardia * Episodes of supraventricular tachycardia resolved at this time * Cardiology following * Resume patient's BP * Discontinued patient's prednisone * Monitor electrolytes especially potassium and Mag * Keep potassium > 4 Mag > 2 * Continues cardiac monitoring UTI * Urine cultures and blood cultures pending * Patient and incontinent of urine and wears depends * Continue IV hydration. * Monitor CBC, CMP watch for sepsis. * Monitor vital signs. * Start antibiotics. Cefadroxil * Start probiotics to prevent antibiotic induced diarrhea * Monitor for obstructive uropathy and pyelonephritis HTN * Controlled at this time * Monitor per unit protocol * Resumed home medications Code status: DNR DVT prophylaxis: SCD's Stress ulcer prophylaxis: Protonix 40 daily PT/OT notes: PT/OT pending Disposition: Patient continues admission to the medical unit on telemetry for treatment of possible PNA and UTI. Swallow evaluation order to r/o aspiration PT/OT pending patient to return to SNF when medical stable for discharge. Time Spent With Patient Time with patient: 25 - 35 minutes Subjective Date/time seen: 05/11/23 13:03 Interval history: H&P: (Medical Record) Chief Complaint: SOB Narrative: 77 y/o M presents here with SOB with PMH of HTN, MANAGEMENT ACCOUNTANT Shunt, BPH, and COPD. Patient presents here via EMS from [place] for evaluation of new SOB. Reports general malaise, nausea, cough (dry) that started this morning. Nausea has been temporarily relieved with belc
--- NOTE | 2023-05-11 13:03 | PM.IMPN ---
Progress Note: A&P Assessment and Plan (1) Sepsis: Qualifiers: Sepsis acute organ dysfunction status: without acute organ dysfunction Sepsis type: sepsis due to unspecified organism Qualified Code(s): A41.9 - Sepsis, unspecified organism Code(s): A41.9 - Sepsis, unspecified organism Status: Acute (2) Pneumonia: Qualifiers: Laterality: bilateral Lung location: lower lobe of lung Pneumonia type: due to unspecified organism Qualified Code(s): J18.9 - Pneumonia, unspecified organism Code(s): J18.9 - Pneumonia, unspecified organism Status: Acute (3) Tachycardia, paroxysmal: Code(s): I47.9 - Paroxysmal tachycardia, unspecified Status: Acute (4) Acute UTI: Code(s): N39.0 - Urinary tract infection, site not specified Status: Acute (5) COPD with asthma: Code(s): J44.89 - Other specified chronic obstructive pulmonary disease Status: Chronic Plan Sepsis Possible CAP versus aspiration PNA vs UTI SIRS: HR, WBC, RR IV fluid resuscitation. 30mg/kg for septic shock empiric IV antibiotic therapy Monitor lactic acid levels q6hr. WNL 1.3 Two sets of blood cultures NGTD urine cultures. Pending- PTT and PT, INR. Chest x-ray CAP versus aspiration PNA vs Pulmonary edema Monitor albumin, monitoring of mental status. glucose monitoring and control Pneumonia CAP vs aspiration Bronchodilators. Chest x-ray There is hazy bibasilar airspace disease.? Cardiomediastinal silhouette is stable. Bones and soft tissues are unremarkable. ROLLER CLEANER shunt noted. incentive spirometry while awake. sputum culture ordered influenza/COVID/RSV negative antibiotic therapy Guaifenesin b.i.d. supplemental oxygen therapy to maintain oxygen 92% NPO Swallow evaluation to rule out aspiration patient with previous TBI and reports coughing and difficulty swallowing with food Tachycardia Episodes of supraventricular tachycardia resolved at this time Cardiology following Resume patient's BP Discontinued patient's prednisone Monitor electrolytes especially potassium and Mag Keep potassium > 4 Mag > 2 Continues cardiac monitoring UTI Urine cultures and blood cultures pending Patient and incontinent of urine and wears depends Continue IV hydration. Monitor CBC, CMP watch for sepsis. Monitor vital signs. Start antibiotics. Cefadroxil Start probiotics to prevent antibiotic induced diarrhea Monitor for obstructive uropathy and pyelonephritis HTN Controlled at this time Monitor per unit protocol Resumed home medications Code status: DNR DVT prophylaxis: SCD's Stress ulcer prophylaxis: Protonix 40 daily PT/OT notes: PT/OT pending Disposition: Patient continues admission to the medical unit on telemetry for treatment of possible PNA and UTI. Swallow evaluation order to r/o aspiration PT/OT pending patient to return to SNF when medical stable for discharge. Time Spent With Patient Time with patient: 25 - 35 minutes Subjective Date/time seen: 05/11/23 13:03 Interval history: H&P: (Medical Record) Chief Complaint: SOB Narrative: 77 y/o M presents here with SOB with PMH of HTN, ROLLER CLEANER Shunt, BPH, and COPD. Patient presents here via EMS from [place] for evaluation of new SOB. Reports general malaise, nausea, cough (dry) that started this morning. Nausea has been temporarily relieved with belching, has since completely resolved. No aggravating or alleviating factors for SOB. No fever, chills, or body aches. No sick contacts. Any LE swelling - symmetric or asymmetric. Patient denies hematuria or dysuria. Endorsing urinary frequency over the last 2-3 days. Patient states he is feeling improved since arrival.? Also denying palpitations, chest discomfort, diaphoresis, jaw pain, and epigastric pain. Having runs of tachycardia (130-150's) that self-abort and are asymptomatic since arrival to the floor. Initial
--- NOTE | 2023-05-11 13:40 | PCSTNOTE ---
Bedside swallowing evaluation completed. Patient was seen sitting upright in chair beside bed. Cursory oral peripheral examination results within functional limits. Patient's head tilts to the left and this has evidently been long standing. Per patient he eats and drinks anything he likes without difficulty at his home (long-term). Trials of thin liquid by spoon and straw; pureed consistency by spoon, and solid consistency by hand (sandwich) were presented and patient was able to chew and swallow without difficulty. No signs of aspiration observed. Based on these findings the following recommendations are made: regular diet (level 7) with thin liquids (level 0). No further speech therapy is recommended. Please note that silent aspiration cannot be ruled out at bedside and can be evaluated with a modified barium swallow study. Thank you for the referral of this patient.
[2023-05-11 16:49] LABS: Glucose Point of Care 186 mg/dl (65-105)
[2023-05-11] MEDS: LACTULOSE 20 GM/30 ML UDC PO ×2 (17:42→23:37)
[2023-05-11 20:08] LABS: Glucose Point of Care 148 mg/dl (65-105)
[2023-05-11] MEDS: METOPROLOL TARTRATE 25 MG TABLET PO (20:57)
[2023-05-11] MEDS: MONTELUKAST SODIUM 10 MG TABLET PO (20:58)
[2023-05-11] MEDS: LORATADINE 10 MG TABLET PO (20:58)
[2023-05-12] VITALS (14 sets, daily range): BP systolic 100–121; BP diastolic 53–60; PULSE 74–86; RESP 16–18; TEMP 36.3–36.7; O2SAT 94–98
[2023-05-12] MEDS: IPRATROPIUM 0.5 MG/ALBUTEROL SULFATE 2.5 MG AMPUL.NEB 3 ML INHALATION ×4 (03:03→19:19)
[2023-05-12] MEDS: BACLOFEN 10 MG TABLET PO ×3 (05:38→20:51)
[2023-05-12] MEDS: LACTATED RINGERS 1,000 ML 100 ML IV CONT ×2 (05:38→20:51)
[2023-05-12] MEDS: LACTULOSE 20 GM/30 ML UDC PO ×2 (05:38→12:48)
[2023-05-12] MEDS: FLUTICASONE/SALMETEROL 45-21 MCG INHALER 1 PUFF 2 PUFF INHALATION ×2 (08:04→19:19)
[2023-05-12] MEDS: AZITHROMYCIN 500 MG/NS 250 ML 500 MG/250 ML BAG 250 MG IVPB (08:05)
[2023-05-12] MEDS: hydroCHLOROthiazide 12.5 MG CAPSULE PO (08:05)
[2023-05-12] MEDS: ACETAMINOPHEN 325 MG TABLET 650 MG PO ×2 (08:05→16:17)
[2023-05-12] MEDS: ROFLUMILAST 500 MCG TABLET PO (08:05)
[2023-05-12] MEDS: FUROSEMIDE 20 MG TABLET PO (08:05)
[2023-05-12] MEDS: amLODIPine BESYLATE 5 MG TABLET PO (08:05)
[2023-05-12] MEDS: DOCUSATE SODIUM 100 MG CAPSULE PO ×2 (08:05→16:17)
[2023-05-12] MEDS: TAMSULOSIN HCL 0.4 MG CAPSULE 0.8 MG PO (08:05)
[2023-05-12] MEDS: GABAPENTIN 100 MG CAPSULE PO ×2 (08:06→20:51)
[2023-05-12] MEDS: FLUTICASONE PROPIONATE 0.05% NA SPR 16 GM BTL (*BKC) 1 SPRAY NASAL (08:06)
[2023-05-12] MEDS: busPIRone HCL 10 MG TABLET PO ×2 (08:06→20:51)
[2023-05-12] MEDS: guaiFENesin 12 HR 600 MG TABCR PO ×2 (08:06→20:51)
[2023-05-12] MEDS: polyethylene glycoL 3350 17 GM POWD.PACK PO (08:06)
[2023-05-12] MEDS: PANTOPRAZOLE 40 MG TABLET PO (08:06)
[2023-05-12] MEDS: THERAPEUTIC MULTIVITAMINS/MINERALS TAB (*BKC) 1 TABLET PO (08:06)
[2023-05-12] MEDS: lisinopriL 10 MG TABLET PO (08:06)
[2023-05-12] MEDS: METOPROLOL TARTRATE 25 MG TABLET PO ×2 (08:06→20:50)
[2023-05-12 08:36] LABS: Hematocrit 35.6 % (42.0-52.0); Hemoglobin 11.4 g/dL (14.0-18.0); Mean Corpuscular Hemoglobin 30.3 pg (26-34); Mean Corpuscular Volume 94.7 fl (80-100); Mean Platelet Volume 8.9 fl (7.4-10.4); Platelet Count Result 231 k/mm3 (150-375); Red Blood Count 3.76 M/mm3 (4.6-6.20); Red Cell Distribution Width 14.3 % (11.5-14.5); White Blood Count 9.1 K/mm3 (4.5-10.0)
[2023-05-12 09:18] LABS: Alanine Aminotransferase 25 U/L (6-50); Albumin Level 3.3 g/dL (3.5-5.1); Alkaline Phosphatase 79 U/L (38-126); Anion Gap 4 mmol/L (8-16); Aspartate Amino Transferase 24 U/L (17-59); Bilirubin,Total 0.4 mg/dL (0.2-1.3); Blood Urea Nitrogen 16 mg/dL (9-20); Calcium 8.6 mg/dL (8.4-10.2); Carbon Dioxide 28 mmol/L (22-30); Chloride 105 mmol/L (98-107); Estimated CRCL calculation 80 ml/min; Estimated Glomerular Filt Rate > 60; Glucose 96 mg/dL (65-110); Potassium 3.1 mmol/L (3.4-5.0); Sodium 137 mmol/L (137-145)
--- NOTE | 2023-05-12 12:29 | P.PNIM_ITS ---
Progress Note: A&P Assessment and Plan (1) Sepsis: Qualifiers: Sepsis acute organ dysfunction status: without acute organ dysfunction Sepsis type: sepsis due to unspecified organism Qualified Code(s): A41.9 - S epsis, unspecified organism Code(s): A41.9 - Sepsis, unspecified organism Status: Acute (2) Pneumonia: Qualifiers: Laterality: bilateral Lung location: lower lobe of lung Pneumonia type: due to unspecified organism Qualified Code(s): J18.9 - Pneumonia, unspecified organism Code(s): J18.9 - Pneumonia, unspecified organism Status: Acute (3) Tachycardia, paroxysmal: Code(s): I47.9 - Paroxysmal tachycardia, unspecified Status: Acute (4) Acute UTI: Code(s): N39.0 - Urinary tract infection, site not specified Status: Acute (5) COPD with asthma: Code(s): J44.89 - Other specified chronic obstructive pulmonary disease Status: Chronic Plan Sepsis * Possible CAP versus aspiration PNA vs UTI-RESOLVING * SIRS: HR, WBC, RR * IV fluid resuscitation. 30mg/kg for septic shock * empiric IV antibiotic therapy * Monitor lactic acid levels q6hr. WNL 1.3 * Two sets of blood cultures NGTD * urine cultures. Pending- * PTT and PT, INR. * Chest x-ray CAP versus aspiration PNA vs Pulmonary edema * Monitor albumin, monitoring of mental status. * glucose monitoring and control Pneumonia * CAP vs aspiration * Bronchodilators. * Chest x-ray There is hazy bibasilar airspace disease.? Cardiomediastinal silhouette is stable. Bones and soft tissues are unremarkable. PARKING LOT ATTENDANT AND CASHIER shunt noted. * incentive spirometry while awake. * sputum culture ordered * influenza/COVID/RSV negative * antibiotic therapy * Guaifenesin b.i.d. * supplemental oxygen therapy to maintain oxygen 92% * NPO * Swallow evaluation to rule out aspiration patient with previous TBI and reports coughing and difficulty swallowing with food 05/12: * Patient on RA * passed swallow evaluation * resume diet Tachycardia-RESOLVED * Episodes of supraventricular tachycardia resolved at this time * Cardiology following * Resume patient's BP * Discontinued patient's prednisone * Monitor electrolytes especially potassium and Mag * Keep potassium > 4 Mag > 2 * Continues cardiac monitoring UTI * Urine cultures and blood cultures pending * Patient and incontinent of urine and wears depends * Continue IV hydration. * Monitor CBC, CMP watch for sepsis. * Monitor vital signs. * Start antibiotics. Cefadroxil * Start probiotics to prevent antibiotic induced diarrhea * Monitor for obstructive uropathy and pyelonephritis HTN * Controlled at this time * Monitor per unit protocol * Resumed home medications Code status: DNR DVT prophylaxis: SCD's Stress ulcer prophylaxis: Protonix 40 daily PT/OT notes: PT/OT SNF Disposition: Patient continues admission to the medical unit on telemetry for treatment of possible PNA and UTI. [facility] pending UA cultures. 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 Patient presents here via EMS from [place] for evaluation of new SOB. Reports general malaise, nausea, cough (dry) that started this morning. Nausea
--- NOTE | 2023-05-12 12:29 | PM.IMPN ---
Progress Note: A&P Assessment and Plan (1) Sepsis: Qualifiers: Sepsis acute organ dysfunction status: without acute organ dysfunction Sepsis type: sepsis due to unspecified organism Qualified Code(s): A41.9 - Sepsis, unspecified organism Code(s): A41.9 - Sepsis, unspecified organism Status: Acute (2) Pneumonia: Qualifiers: Laterality: bilateral Lung location: lower lobe of lung Pneumonia type: due to unspecified organism Qualified Code(s): J18.9 - Pneumonia, unspecified organism Code(s): J18.9 - Pneumonia, unspecified organism Status: Acute (3) Tachycardia, paroxysmal: Code(s): I47.9 - Paroxysmal tachycardia, unspecified Status: Acute (4) Acute UTI: Code(s): N39.0 - Urinary tract infection, site not specified Status: Acute (5) COPD with asthma: Code(s): J44.89 - Other specified chronic obstructive pulmonary disease Status: Chronic Plan Sepsis Possible CAP versus aspiration PNA vs UTI-RESOLVING SIRS: HR, WBC, RR IV fluid resuscitation. 30mg/kg for septic shock empiric IV antibiotic therapy Monitor lactic acid levels q6hr. WNL 1.3 Two sets of blood cultures NGTD urine cultures. Pending- PTT and PT, INR. Chest x-ray CAP versus aspiration PNA vs Pulmonary edema Monitor albumin, monitoring of mental status. glucose monitoring and control Pneumonia CAP vs aspiration Bronchodilators. Chest x-ray There is hazy bibasilar airspace disease.? Cardiomediastinal silhouette is stable. Bones and soft tissues are unremarkable. GENERAL SALES MANAGER shunt noted. incentive spirometry while awake. sputum culture ordered influenza/COVID/RSV negative antibiotic therapy Guaifenesin b.i.d. supplemental oxygen therapy to maintain oxygen 92% NPO Swallow evaluation to rule out aspiration patient with previous TBI and reports coughing and difficulty swallowing with food 05/12: Patient on RA passed swallow evaluation resume diet Tachycardia-RESOLVED Episodes of supraventricular tachycardia resolved at this time Cardiology following Resume patient's BP Discontinued patient's prednisone Monitor electrolytes especially potassium and Mag Keep potassium > 4 Mag > 2 Continues cardiac monitoring UTI Urine cultures and blood cultures pending Patient and incontinent of urine and wears depends Continue IV hydration. Monitor CBC, CMP watch for sepsis. Monitor vital signs. Start antibiotics. Cefadroxil Start probiotics to prevent antibiotic induced diarrhea Monitor for obstructive uropathy and pyelonephritis HTN Controlled at this time Monitor per unit protocol Resumed home medications Code status: DNR DVT prophylaxis: SCD's Stress ulcer prophylaxis: Protonix 40 daily PT/OT notes: PT/OT SNF Disposition: Patient continues admission to the medical unit on telemetry for treatment of possible PNA and UTI. [facility] to return to [facility] facility pending UA cultures. 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 Patient presents here via EMS from [place] for evaluation of new SOB. Reports general malaise, nausea, cough (dry) that started this morning. Nausea has been temporarily relieved with belching, has since completely resolved. No aggravating or alleviating factors for SOB. No fever, chills, or body aches. No sick contacts. Any LE swelling - symmetric or asymmetric. Patient denies hematuria or dysuria. Endorsing urinary frequency over the last 2-3 days. Patient states he is feeling improved since arrival.? Also denying palpitations, chest discomfort, diaphoresis, jaw pain, and epigastric pain. Having runs of tachycardia (130-150's) that self-abort and are asymptomatic since arri
[2023-05-12] MEDS: LORATADINE 10 MG TABLET PO (20:50)
[2023-05-12] MEDS: MONTELUKAST SODIUM 10 MG TABLET PO (20:51)
[2023-05-13] VITALS (13 sets, daily range): BP systolic 109–124; BP diastolic 58–71; PULSE 77–87; RESP 15–18; TEMP 36.3–37.2; O2SAT 95–98
[2023-05-13] MEDS: IPRATROPIUM 0.5 MG/ALBUTEROL SULFATE 2.5 MG AMPUL.NEB 3 ML INHALATION ×4 (01:31→20:29)
[2023-05-13 05:18] LABS: Hematocrit 34.9 % (42.0-52.0); Hemoglobin 11.3 g/dL (14.0-18.0); Mean Corpuscular HGB Conc 32.4 g/dl (32-36); Mean Corpuscular Hemoglobin 30.1 pg (26-34); Mean Corpuscular Volume 93.1 fl (80-100); Mean Platelet Volume 8.9 fl (7.4-10.4); Platelet Count Result 233 k/mm3 (150-375); Red Blood Count 3.75 M/mm3 (4.6-6.20); White Blood Count 7.7 K/mm3 (4.5-10.0)
[2023-05-13] MEDS: BACLOFEN 10 MG TABLET PO ×3 (05:18→21:06)
[2023-05-13 05:37] LABS: Alanine Aminotransferase 23 U/L (6-50); Albumin Level 3.1 g/dL (3.5-5.1); Alkaline Phosphatase 80 U/L (38-126); Anion Gap 2 mmol/L (8-16); Aspartate Amino Transferase 20 U/L (17-59); Bilirubin,Total 0.4 mg/dL (0.2-1.3); Blood Urea Nitrogen 11 mg/dL (9-20); Calcium 8.4 mg/dL (8.4-10.2); Carbon Dioxide 30 mmol/L (22-30); Chloride 105 mmol/L (98-107); Estimated CRCL calculation 80 ml/min; Estimated Glomerular Filt Rate > 60; Glucose 95 mg/dL (65-110); Potassium 3.3 mmol/L (3.4-5.0); Sodium 137 mmol/L (137-145)
[2023-05-13] MEDS: FLUTICASONE/SALMETEROL 45-21 MCG INHALER 1 PUFF 2 PUFF INHALATION ×2 (07:53→20:30)
[2023-05-13] MEDS: LACTATED RINGERS 1,000 ML 100 ML IV CONT (07:53)
[2023-05-13] MEDS: guaiFENesin 12 HR 600 MG TABCR PO ×2 (07:54→21:06)
[2023-05-13] MEDS: THERAPEUTIC MULTIVITAMINS/MINERALS TAB (*BKC) 1 TABLET PO (07:54)
[2023-05-13] MEDS: ACETAMINOPHEN 325 MG TABLET 650 MG PO ×2 (07:54→16:04)
[2023-05-13] MEDS: FLUTICASONE PROPIONATE 0.05% NA SPR 16 GM BTL (*BKC) 1 SPRAY NASAL (07:54)
[2023-05-13] MEDS: METOPROLOL TARTRATE 25 MG TABLET PO ×2 (07:54→21:06)
[2023-05-13] MEDS: ROFLUMILAST 500 MCG TABLET PO (07:54)
[2023-05-13] MEDS: FUROSEMIDE 20 MG TABLET PO (07:54)
[2023-05-13] MEDS: TAMSULOSIN HCL 0.4 MG CAPSULE 0.8 MG PO (07:54)
[2023-05-13] MEDS: PANTOPRAZOLE 40 MG TABLET PO (07:54)
[2023-05-13] MEDS: lisinopriL 10 MG TABLET PO (07:54)
[2023-05-13] MEDS: hydroCHLOROthiazide 12.5 MG CAPSULE PO (07:55)
[2023-05-13] MEDS: GABAPENTIN 100 MG CAPSULE PO ×2 (07:55→21:06)
[2023-05-13] MEDS: busPIRone HCL 10 MG TABLET PO ×2 (07:55→21:06)
[2023-05-13] MEDS: amLODIPine BESYLATE 5 MG TABLET PO (07:55)
[2023-05-13] MEDS: AZITHROMYCIN 500 MG/NS 250 ML 500 MG/250 ML BAG 250 MG IVPB (07:56)
[2023-05-13] MEDS: POTASSIUM CHLORIDE INJ 40 MEQ in SODIUM CHLORIDE 0.9% IV 500 ML 130 MEQ IVPB (09:02)
--- NOTE | 2023-05-13 15:47 | P.DS_ITS ---
DS: Admitting Diagnosis Discharge Date 05/13/2023 Admitting Diagnosis Sepsis/UTI/Possible PNA DS: Discharge Diagnosis Discharge Diagnosis (1) Sepsis: Qualifiers: Sepsis acute organ dysfunction status: without acute organ dysfunction Sepsis type: sepsis due to unspecified organism Qualified Code(s): A41.9 - Sepsis, unspecified organism Code(s): A41.9 - Sepsis, unspecified organism Status: Acute (2) Pneumonia: Qualifiers: Laterality: bilateral Lung location: lower lobe of lung Pneumonia type: due to unspecified organism Qualified Code(s): J18.9 - Pneumonia, unspecified organism Code(s): J18.9 - Pneumonia, unspecified organism Status: Acute (3) Tachycardia, paroxysmal: Code(s): I47.9 - Paroxysmal tachycardia, unspecified Status: Acute (4) Acute UTI: Code(s): N39.0 - Urinary tract infection, site not specified Status: Acute (5) COPD with asthma: Code(s): J44.89 - Other specified chronic obstructive pulmonary disease Status: Chronic Plan Sepsis * Possible CAP versus aspiration PNA vs UTI-RESOLVING * SIRS: HR, WBC, RR * IV fluid resuscitation. 30mg/kg for septic shock * empiric IV antibiotic therapy * Monitor lactic acid levels q6hr. WNL 1.3 * Two sets of blood cultures NGTD * urine cultures. Pending- * PTT and PT, INR. * Chest x-ray CAP versus aspiration PNA vs Pulmonary edema * Monitor albumin, monitoring of mental status. * glucose monitoring and control Pneumonia * CAP vs aspiration * Bronchodilators. * Chest x-ray There is hazy bibasilar airspace disease.? Cardiomediastinal silhouette is stable. Bones and soft tissues are unremarkable. TREATER shunt noted. * incentive spirometry while awake. * sputum culture ordered * influenza/COVID/RSV negative * antibiotic therapy * Guaifenesin b.i.d. * supplemental oxygen therapy to maintain oxygen 92% * NPO * Swallow evaluation to rule out aspiration patient with previous TBI and reports coughing and difficulty swallowing with food 05/12: * Patient on RA * passed swallow evaluation * resume diet Tachycardia-RESOLVED * Episodes of supraventricular tachycardia resolved at this time * Cardiology following * Resume patient's BP * Discontinued patient's prednisone * Monitor electrolytes especially potassium and Mag * Keep potassium > 4 Mag > 2 * Continues cardiac monitoring UTI * Urine cultures and blood cultures pending * Patient and incontinent of urine and wears depends * Continue IV hydration. * Monitor CBC, CMP watch for sepsis. * Monitor vital signs. * Start antibiotics. Cefadroxil * Start probiotics to prevent antibiotic induced diarrhea * Monitor for obstructive uropathy and pyelonephritis HTN * Controlled at this time * Monitor per unit protocol * Resumed home medications Disposition: Patient discharged back to longterm facility continue to take antibiotic therapy as prescribed patient swallowed a small evaluation current risk for aspiration pneumonia. DS: Summary Hospital Course Reason for hospitalization: Sepsis/UTI/Possible PNA Hospital Course: H&P:? (Medical Record) Chief Complaint: SOB Narrative: 77 y/o M presents here with SOB with PMH of HTN, TREATER Shunt, BPH, and COPD. Patient presents here via EMS from [place] for evaluation of new SOB. Reports general malaise, nausea, cough (dry) that started this morning. Nausea has been temporarily relieved
--- NOTE | 2023-05-13 15:47 | PM.DS ---
DS: Admitting Diagnosis Discharge Date 05/13/2023 Admitting Diagnosis Sepsis/UTI/Possible PNA DS: Discharge Diagnosis Discharge Diagnosis (1) Sepsis: Qualifiers: Sepsis acute organ dysfunction status: without acute organ dysfunction Sepsis type: sepsis due to unspecified organism Qualified Code(s): A41.9 - Sepsis, unspecified organism Code(s): A41.9 - Sepsis, unspecified organism Status: Acute (2) Pneumonia: Qualifiers: Laterality: bilateral Lung location: lower lobe of lung Pneumonia type: due to unspecified organism Qualified Code(s): J18.9 - Pneumonia, unspecified organism Code(s): J18.9 - Pneumonia, unspecified organism Status: Acute (3) Tachycardia, paroxysmal: Code(s): I47.9 - Paroxysmal tachycardia, unspecified Status: Acute (4) Acute UTI: Code(s): N39.0 - Urinary tract infection, site not specified Status: Acute (5) COPD with asthma: Code(s): J44.89 - Other specified chronic obstructive pulmonary disease Status: Chronic Plan Sepsis Possible CAP versus aspiration PNA vs UTI-RESOLVING SIRS: HR, WBC, RR IV fluid resuscitation. 30mg/kg for septic shock empiric IV antibiotic therapy Monitor lactic acid levels q6hr. WNL 1.3 Two sets of blood cultures NGTD urine cultures. Pending- PTT and PT, INR. Chest x-ray CAP versus aspiration PNA vs Pulmonary edema Monitor albumin, monitoring of mental status. glucose monitoring and control Pneumonia CAP vs aspiration Bronchodilators. Chest x-ray There is hazy bibasilar airspace disease.? Cardiomediastinal silhouette is stable. Bones and soft tissues are unremarkable. 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 incentive spirometry while awake. sputum culture ordered influenza/COVID/RSV negative antibiotic therapy Guaifenesin b.i.d. supplemental oxygen therapy to maintain oxygen 92% NPO Swallow evaluation to rule out aspiration patient with previous TBI and reports coughing and difficulty swallowing with food 05/12: Patient on RA passed swallow evaluation resume diet Tachycardia-RESOLVED Episodes of supraventricular tachycardia resolved at this time Cardiology following Resume patient's BP Discontinued patient's prednisone Monitor electrolytes especially potassium and Mag Keep potassium > 4 Mag > 2 Continues cardiac monitoring UTI Urine cultures and blood cultures pending Patient and incontinent of urine and wears depends Continue IV hydration. Monitor CBC, CMP watch for sepsis. Monitor vital signs. Start antibiotics. Cefadroxil Start probiotics to prevent antibiotic induced diarrhea Monitor for obstructive uropathy and pyelonephritis HTN Controlled at this time Monitor per unit protocol Resumed home medications Disposition: Patient discharged back to halfway facility continue to take antibiotic therapy as prescribed patient swallowed a small evaluation current risk for aspiration pneumonia. DS: Summary Hospital Course Reason for hospitalization: Sepsis/UTI/Possible PNA Hospital Course: H&P:? 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 Patient presents here via EMS from [place] for evaluation of new SOB. Reports general malaise, nausea, cough (dry) that started this morning. Nausea has been temporarily relieved with belching, has since completely resolved. No aggravating or alleviating factors for SOB. No fever, chills, or body aches. No sick contacts. Any LE swelling - symmetric or asymmetric. Patient denies hematuria or dysuria. Endorsing urinary frequency over the last 2-3 days. Patient states he is feeling improved since arrival.? Also denying palpitations, chest discomfort, diaphoresis, jaw pain, and epigastric pain. Having runs of tachycardia (130-150's) that self-abort and are asymptomatic since arrival to the floor. Initial
[2023-05-13 17:02] LABS: SARS-CoV-2 RNA PCR Negative (Negative)
[2023-05-13] MEDS: MONTELUKAST SODIUM 10 MG TABLET PO (21:06)
[2023-05-13] MEDS: LORATADINE 10 MG TABLET PO (21:06)
--- NOTE | 2023-05-13 22:36 | PC.NURSE ---
Pt discharged to [facility], transported by EMS [place] with all belongings, report called by previous shift Mely REYEZ.
== END 2023-05-13 22:23 | DRG 871 ==
LOC: ANHED 12:56 → ANH3MEDSUR 13:51 → ANH2MED 15:46
PROVIDERS: Student in an Organized Health Care Education/Training Program; Admitting Provider General Practice; Emergency Provider Emergency Medicine; PCP Hospitalist; Visit Provider Nurse Practitioner Family
DX: A41.9 Sepsis, unspecified organism (principal); J18.9 Pneumonia, unspecified organism; N39.0 Urinary tract infection, site not specified; J44.0 Chronic obstructive pulmonary disease with (acute) lower respiratory infection; I47.10 Supraventricular tachycardia, unspecified; E87.6 Hypokalemia; F41.9 Anxiety disorder, unspecified; I45.10 Unspecified right bundle-branch block; I10 Essential (primary) hypertension; K21.9 Gastro-esophageal reflux disease without esophagitis; M19.90 Unspecified osteoarthritis, unspecified site; N40.0 Benign prostatic hyperplasia without lower urinary tract symptoms; Z98.2 Presence of cerebrospinal fluid drainage device; Z66 Do not resuscitate; Z20.822 Contact with and (suspected) exposure to COVID-19; Z11.52 Encounter for screening for COVID-19; Z88.0 Allergy status to penicillin; Z86.73 Personal history of transient ischemic attack (TIA), and cerebral infarction without residual deficits
CPT/HCPCS: 36415; 71045; 80053; 81001; 82948; 83036; 83605; 83690; 83880; 84484; 85025; 85027; 85610; 85730; 87040; 87086; 87186; 87635; 87637; 87641; 92610; 93005; 94640; 96361; 96365; 96367; 96375; 97110; 97161; 97166; 97530; 97535; 99285; A9270; G0378; J0456; J0696; J2405; J3480; J7030; J7040; J7120; J7512

== ENCOUNTER 2023-06-29 13:06 | Emergency (ER) | payer MEDICARE, OTHER, MEDICAID, SELFPAY ==
--- NOTE | ~2023-06-29 | CT_ITS ---
EXAMINATION: CT cervical spine wo con DATE: 06/29/2023 14:16 INDICATION: Head injury. TECHNIQUE: Computed tomography (CT) of the cervical spine was performed without intravenous contrast. Automated exposure control and iterative reconstruction technique were employed. The dose-length pro duct was 235.38 mGy-cm. COMPARISON: CT cervical spine 04/02/2023 FINDINGS: There is 42 degrees levoscoliosis of cervical spine. There is 2 mm anterolisthesis of C6 on C7. There is mild chronic anterior wedging of T7 vertebral body. There is mildly decreased disc heig ht at C2-C3 and severely decreased disc height at C3-C4. There is severely decreased disc height at C 4-C5 with interbody fusion. There is moderately decreased disc height at C5-C6 and C6-C7. The followi ng disc levels are specifically discussed: C2-C3: There is severe right and moderate left uncovertebral joint osteoarthritis. There is severe bi lateral facet joint osteoarthritis. There is mild bilateral neural foraminal stenosis. There is no ce ntral canal stenosis. C3-C4: There is severe right and mild left uncovertebral joint osteoarthritis. There is severe bilate ral facet joint osteoarthritis. There is moderate right and mild left neural foraminal stenosis. Ther e is mild central canal stenosis. C4-C5: There is severe bilateral uncovertebral joint osteoarthritis. There is mild left facet joint o steoarthritis. There is ankylosis of right facet joint with severe hypertrophy. There is moderate rig ht and mild left neural foraminal stenosis. There is mild central canal stenosis. C5-C6: There is mild bilateral uncovertebral joint hypertrophy. There is mild left facet joint osteoa rthritis. There is ankylosis of right facet joint with severe hypertrophy. There is mild bilateral ne ural foraminal stenosis. There is mild central canal stenosis. C6-C7: There is severe right and mild left uncovertebral joint osteoarthritis. There is severe bilate ral facet joint osteoarthritis. There is mild right neural foraminal stenosis. There is mild central canal stenosis. C7-T1: There is mild right uncovertebral joint osteoarthritis. There is severe bilateral facet joint osteoarthritis. There is mild bilateral neural foraminal stenosis. There is mild central canal stenos is. IMPRESSION: 1. No fracture. 2. Severe cervical spondylosis. 3. Cervical levoscoliosis. Reviewed, dictated and finalized at location E.
--- NOTE | ~2023-06-29 | XR_ITS ---
EXAMINATION: XR chest 1V portable DATE: 06/29/2023 14:03 INDICATION: Cough. Fall. TECHNIQUE: A single frontal view of the chest was obtained on 2 radiographs. COMPARISON: Chest 05/10/2023, chest CT 04/01/2023 FINDINGS: There is mild elevation of left hemidiaphragm. There are chronic airspace opacities in the lower lung zones. There is chronic blunting of the lateral costophrenic angles. No pleural effusion o r pneumothorax. Cardiomegaly is noted. A right-sided ventriculoperitoneal shunt is noted. There are s urgical clips are abdomen. IMPRESSION: 1. Stable airspace opacities in the lower lung zones, likely scarring. Pneumonia cannot be excluded. 2. Cardiomegaly. Reviewed, dictated and finalized at location E. IMPRESSION: 1. Stable airspace opacities in the lower lung zones, likely scarring. Pneumoni a cannot be excluded. 2. Cardiomegaly.
--- NOTE | ~2023-06-29 | CT_ITS ---
EXAMINATION: CT brain wo con DATE: 06/29/2023 14:15 INDICATION: Head injury. TECHNIQUE: Computed tomography (CT) of the head was performed without intravenous contrast. The mA wa s adjusted according to patient size. Iterative reconstruction technique was employed. The dose-lengt h product was 681.00 mGy-cm. COMPARISON: Head CT 04/04/2023 FINDINGS: There is a chronic fluid collection overlying right frontotemporal parietal region that is isodense to cerebral spinal fluid with maximum thickness of 2.7 cm. There are changes of right-sided craniotomy. There is a discontinuous right-sided shunt catheter with tip in the suprasellar cistern. There are scattered areas of low attenuation in the cerebral white matter. There is no intracranial h emorrhage, acute infarction, or abnormal intracranial mass lesion. The ventricles are normal in size. The orbits are normal. There is mild mucosal thickening in the paranasal sinuses. The mastoid air ce lls are normal. There is cerumen in the external auditory canals. IMPRESSION: 1. Stable chronic extra-axial fluid collection overlying right frontotemporal parietal region. 2. Discontinuous shunt catheter on the right, which is chronic. 3. Stable mild nonspecific cerebral white matter disease, which likely represents chronic small vesse l ischemic disease. Reviewed, dictated and finalized at location E. IMPRESSION: 1. Stable chronic extra-axial fluid collection overlying right frontotemporal p arietal region. 2. Discontinuous shunt catheter on the right, which is chronic. 3. Stable mild nonspecific cerebral white matter disease, which likely represen ts chronic small vessel ischemic disease.
[2023-06-29 13:04] VITALS: BP 102/66; PULSE 77; RESP 16; TEMP 36.7; O2SAT 96
--- NOTE | 2023-06-29 13:04 | ED.FALL ---
HPI - Fall General Chief Complaint: Fall Stated Complaint: fall Time Seen by Provider: 06/29/23 13:10 Source: patient Mode of arrival: ambulatory Limitations: no limitations History of Present Illness HPI Narrative: Jaison is a 77-year-old male patient presenting to the emergency room today via EMS for a mechanical ground level fall. He reports he fell and hit his forehead on the wall. Denies any neck pain or any loss of consciousness. Denies any other concerns or pain at this time. Related Data Home Medications Medication Instructions Recorded Confirmed acetaminophen 325 mg tablet 650 mg PO BID 10/02/21 05/10/23 baclofen 10 mg tablet 1 tablet PO TID 10/02/21 05/10/23 budesonide-formoterol HFA 80 2 inh inhalation BID 10/02/21 05/10/23 mcg-4.5 mcg/actuation aerosol inhaler (Symbicort) cetirizine 10 mg tablet (Zyrtec) 10 mg PO HS 10/02/21 05/10/23 docusate sodium 100 mg capsule 100 mg PO BID 10/02/21 05/10/23 fluticasone propionate 50 1 ea intranasal DAILY 10/02/21 05/10/23 mcg/actuation nasal spray,suspension lisinopril 10 1 tablet PO DAILY 10/02/21 05/10/23 mg-hydrochlorothiazide 12.5 mg tablet magnesium hydroxide 400 mg/5 mL 30 ml PO DAILY PRN Constipation 10/02/21 05/10/23 oral suspension (Milk of Magnesia) montelukast 10 mg tablet 1 tablet PO HS 10/02/21 05/10/23 polyethylene glycol 3350 17 g PO DAILY 10/02/21 05/10/23 potassium chloride 10 mEq 1 tablet PO DAILY 10/02/21 05/10/23 tablet,extended release (Klor-Con) roflumilast 500 mcg tablet 1 tablet PO DAILY 10/02/21 05/10/23 (Daliresp) amlodipine 5 mg tablet 5 mg PO DAILY 10/18/22 05/10/23 ergocalciferol (vitamin D2) 1,250 mg PO WEEKLY 10/18/22 05/10/23 guaifenesin 600 mg PO BID 10/18/22 05/10/23 tamsulosin 0.8 mg PO DAILY 10/18/22 05/10/23 benzonatate 100 mg capsule 100 mg PO BID PRN Cough 03/21/23 05/10/23 furosemide 20 mg tablet 20 mg PO DAILY 03/21/23 05/10/23 gabapentin 100 mg capsule 100 mg PO BID 03/21/23 05/10/23 buspirone 10 mg tablet 10 mg PO BID 05/10/23 05/10/23 multivitamin with minerals (Daily 1 tablet PO DAILY 05/10/23 05/10/23 Multivitamin-Minerals tablet) sodium chloride 0.65 % nasal spray 2 spray intranasal Q1H PRN dryness 05/10/23 05/10/23 aerosol (Saline Nasal) Allergies Allergy/AdvReac Type Severity Reaction Status Date / Time Penicillins Allergy Severe Unknown Verified 05/10/23 17:24 aspirin AdvReac Severe Vomiting Verified 05/10/23 17:24 Review of Systems Review of Systems: Pertinent positives per HPI. Patient denies any fever, chills, rash, headache, visual changes, dizziness, cough, runny nose, sore throat, shortness of breath, chest pain, palpitations, nausea, vomiting, diarrhea, constipation, abdominal pain, or any urinary issues. FOR[facility]LY [facility] Past Medical History Medical History Anxiety BPH (benign prostatic hyperplasia) Cerebrovascular disease Cognitive communication deficit COPD with asthma Generalized muscle weakness GERD (gastroesophageal reflux disease) Hypertension Osteoarthritis (arthritis due to wear and tear of joints) Presence of nonprogrammable ventriculoperitoneal shunt Scoliosis Surgical History Surgical History History of ventriculoperitoneal shunting Family History Family History Father Asthma Sibling Family history of heart disease in male family member before age 55 Mother Family history of heart disease in male family member before age 55 Social History Social History Smoking status: Never smoker Second hand tobacco smoke exposure: No Alcohol intake: never Substance use: never Substance use type: does not use Do You Feel Safe in your Home?: Yes Lack of Transportation: No Lack of Food: Never True Current Housing: [facility]
[2023-06-29 15:39] VITALS: BP 114/82; PULSE 70; RESP 16; O2SAT 98
--- NOTE | 2023-06-29 16:00 | PC.NURSE ---
ATTEMPTED TO CALL REPORT TO [facility]. NO ANSWER. EMS HERE TO TAKE PT BACK TO FACILITY
== END 2023-06-29 19:54 | disposition home or self-care (01) ==
PROVIDERS: Emergency Provider Nurse Practitioner Family; PCP Hospitalist
DX: R51.9 Headache, unspecified (principal); I10 Essential (primary) hypertension; J44.9 Chronic obstructive pulmonary disease, unspecified; N40.0 Benign prostatic hyperplasia without lower urinary tract symptoms; K21.9 Gastro-esophageal reflux disease without esophagitis; M19.90 Unspecified osteoarthritis, unspecified site; R41.841 Cognitive communication deficit; F41.9 Anxiety disorder, unspecified; Z98.2 Presence of cerebrospinal fluid drainage device; I51.7 Cardiomegaly; R91.8 Other nonspecific abnormal finding of lung field; R90.82 White matter disease, unspecified; M47.812 Spondylosis without myelopathy or radiculopathy, cervical region; W01.198A Fall on same level from slipping, tripping and stumbling with subsequent striking against other object, initial encounter
CPT/HCPCS: 70450; 71045; 72125; 99284

== ENCOUNTER 2024-01-31 12:55 | Emergency (ER) | payer MEDICARE, OTHER, MEDICAID, SELFPAY ==
[2024-01-31] VITALS (7 sets, daily range): BP systolic 105–151; BP diastolic 63–86; PULSE 94–108; RESP 19–22; TEMP 36.9–37.2; O2SAT 93–95
--- NOTE | ~2024-01-31 | CT_ITS ---
Clinical indication:Persistent cough COMPARISON:04/01/2023 TECHNIQUE: Multiple contiguous axial images of the chest were performed without the administration of intravenous contrast. FINDINGS: LUNG:Biapical scarring Left lower lobe consolidation demonstrating progression from atelectasis seen on 04/01/2023. Layering of sediment is seen within the left descending bronchus supplying the posterior and lateral basal segments of the left lower lobe, for which chronic aspiration is suspected. Calcified pleura within the right lung base. The remainder of the lungs are otherwise clear. MEDIASTINUM:Pathologically enlarged lymph nodes are identified within the left paratracheal region, t he largest measuring 16 mm in short axis dimension. An enlarged subcarinal lymph node is also present measuring 14 mm in short axis dimension. Limited evaluation for hilar lymphadenopathy secondary to the lack of intrathoracic fat and the lack of intravenous contrast. HEART:The heart is enlarged, without pericardial effusion. 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 Given changes in positionin g and technique, the size is stable when compared to March 2023. 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 No acut e fractures. No lytic or blastic lesions identified. VISUALIZED PORTION OF THE UPPER ABDOMEN: Bulky calculus within the left kidney, an interval change fr om prior. IMPRESSION: Consolidative findings within the left lower lobe for which chronic aspiration is suspected, as carlos alberto led above. Reviewed, dictated and finalized at location A. HOLDER IMPRESSION: Consolidative findings within the left lower lobe for which chronic aspiration is suspected, as detailed above.
--- NOTE | 2024-01-31 13:06 | ECG_ITS ---
Test Date: 2024-01-31 13:08:28 Measurements Intervals [place] Rate: 99 P: 62 NJ: 156 QRS: 29 QRSD: 158 T: -20 QT: 401 QTc: 515 Interpretive Statements SINUS RHYTHM RIGHT BUNDLE BRANCH BLOCK ABNORMAL ECG No previous ECG available for comparison Electronically Signed On 01-31-2024 13:12:31 [employer] by Petr Leung D.O.
--- NOTE | 2024-01-31 13:55 | ED.GENADULT ---
HPI - General Adult General Chief complaint: Unspecified Stated complaint: resp infection Time Seen by Provider: 01/31/24 13:03 History of Present Illness HPI narrative: 78-year-old male with history of COPD, hypertension presenting with URI symptoms. Patient is coming from a nursing facility where he has been noted to be coughing a lot. He was apparently started on Augmentin a couple of days ago for presumed pneumonia. States his symptoms have continued. Sometimes feel short of breath. Denies any pain. Related Data Home Medications Medication Instructions Recorded Confirmed acetaminophen 325 mg tablet 650 mg PO BID 10/02/21 05/10/23 baclofen 10 mg tablet 1 tablet PO TID 10/02/21 05/10/23 budesonide-formoterol HFA 80 2 inh inhalation BID 10/02/21 05/10/23 mcg-4.5 mcg/actuation aerosol inhaler (Symbicort) cetirizine 10 mg tablet (Zyrtec) 10 mg PO HS 10/02/21 05/10/23 docusate sodium 100 mg capsule 100 mg PO BID 10/02/21 05/10/23 fluticasone propionate 50 1 ea intranasal DAILY 10/02/21 05/10/23 mcg/actuation nasal spray,suspension lisinopril 10 1 tablet PO DAILY 10/02/21 05/10/23 mg-hydrochlorothiazide 12.5 mg tablet magnesium hydroxide 400 mg/5 mL 30 ml PO DAILY PRN Constipation 10/02/21 05/10/23 oral suspension (Milk of Magnesia) montelukast 10 mg tablet 1 tablet PO HS 10/02/21 05/10/23 polyethylene glycol 3350 17 g PO DAILY 10/02/21 05/10/23 potassium chloride 10 mEq 1 tablet PO DAILY 10/02/21 05/10/23 tablet,extended release (Klor-Con) roflumilast 500 mcg tablet 1 tablet PO DAILY 10/02/21 05/10/23 (Daliresp) amlodipine 5 mg tablet 5 mg PO DAILY 10/18/22 05/10/23 ergocalciferol (vitamin D2) 1,250 mg PO WEEKLY 10/18/22 05/10/23 guaifenesin 600 mg PO BID 10/18/22 05/10/23 tamsulosin 0.8 mg PO DAILY 10/18/22 05/10/23 benzonatate 100 mg capsule 100 mg PO BID PRN Cough 03/21/23 05/10/23 furosemide 20 mg tablet 20 mg PO DAILY 03/21/23 05/10/23 gabapentin 100 mg capsule 100 mg PO BID 03/21/23 05/10/23 buspirone 10 mg tablet 10 mg PO BID 05/10/23 05/10/23 multivitamin with minerals (Daily 1 tablet PO DAILY 05/10/23 05/10/23 Multivitamin-Minerals tablet) sodium chloride 0.65 % nasal spray 2 spray intranasal Q1H PRN dryness 05/10/23 05/10/23 aerosol (Saline Nasal) Allergies Allergy/AdvReac Type Severity Reaction Status Date / Time Penicillins Allergy Severe Unknown Verified 05/10/23 17:24 aspirin AdvReac Severe Vomiting Verified 05/10/23 17:24 Review of Systems Review of Systems: All systems reviewed & are unremarkable except as noted in HPI and below PMFSH Past Medical History Medical History Anxiety BPH (benign prostatic hyperplasia) Cerebrovascular disease Cognitive communication deficit COPD with asthma Generalized muscle weakness GERD (gastroesophageal reflux disease) Hypertension Osteoarthritis (arthritis due to wear and tear of joints) Presence of nonprogrammable ventriculoperitoneal shunt Scoliosis Surgical History Surgical History History of ventriculoperitoneal shunting Family History Family History Father Asthma Sibling Family history of heart disease in male family member before age 55 Mother Family history of heart disease in male family member before age 55 Social History Social History Smoking status: Never smoker Second hand tobacco smoke exposure: No Alcohol intake: never Substance use: never Substance use type: does not use Do You Feel Safe in your Home?: Yes Lack of Transportation: No Lack of Food: Never True Current Housing: I Have Housing Concerned About Future Housing: No Difficulty Paying Gas/Electric Bills: No Difficulty Paying for Meds: No Currently Unemployed: No Education: Decline to Answer Difficulty w/ Childcare or Family Care: No Gender identity (if verbalized by the patient): Male Spiritual care concerns: No Exam Narrative: GENERAL: Chronically ill-appearing elderly man sitting up in bed in no acute distress HEAD: Normocephalic, atraumatic. EYES: PERRLA and EOMI. ENT: + nasal congestion Mucous membranes moist. NECK: Supple. CHEST: Crackles bilaterally, no respiratory distress HEART: Regular rate and rhythm ABDOMEN: Soft, nontender, nondistended EXTREMITIES: Normal range of motion SKIN: Warm, dry, no rash. NEURO: Alert and oriented x2. PSYCH: Normal mood and affect. Course Vital Signs Vital signs: Vital Signs Temperature 98.4 F 01/31/24 12:56 Pulse Rate 100 01/31/24 12:56 Respiratory Rate 19 01/31/24 12:56 Blood Pressure 110/70 01/31/24 12:56 Pulse Oximetry 95 01/31/24 12:56 Oxygen Delivery Room Air 01/31/24 12:56 Temperature 98.4 F 01/31/24 12:56 Pulse Rate 103 H 01/31/24 14:22 Respiratory Rate 21 H 01/31/24 14:22 Blood Pressure 110/70 01/31/24 12:56 Pulse Oximetry 95 01/31/24 12:56 Oxygen Delivery Room Air 01/31/24 12:56 Medical Decision Making MDM Narrative Medical decision making narrative: 78-year-old male presenting with URI symptoms. Vitals are stable. Exam remarkable for the above. EKG per my interpretation shows normal sinus rhythm, right bundle-branch block, no ST elevations or depressions. Blood work with mild hypokalemia and dehydration. P.o. potassium has been ordered an IV fluids are ongoing. CT chest shows chronic aspiration in the left lower lobe. Patient is already on Augmentin. He is safe for outpatient management. Advised PCP follow-up. Appropriate return precautions given. Discharged in stable condition. Vital Signs Vital Signs: Vital Signs Temperature 98.4 F 01/31/24 12:56 Pulse Rate 100 01/31/24 12:56 Respiratory Rate 19 01/31/24 12:56 Blood Pressure 110/70 01/31/24 12:56 Pulse Oximetry 95 01/31/24 12:56 Oxygen Delivery Room Air 01/31/24 12:56 Temperature 98.4 F 01/31/24 12:56 Pulse Rate 103 H 01/31/24 14:22 Respiratory Rate 21 H 01/31/24 14:22 Blood Pressure 110/70 01/31/24 12:56 Pulse Oximetry 95 01/31/24 12:56 Oxygen Delivery Room Air 01/31/24 12:56 Lab Data 01/31/24 14:28 01/31/24 14:06 Labs: Lab Results 01/31/24 01/31/24 Range/Units 14:06 14:28 WBC 9.9 (4.5-10.0) K/mm3 RBC 4.19 L (4.6-6.20) M/mm3 Hgb 12.9 L (14.0-18.0) g/dL Hct 38.3 L (42.0-52.0) % MCV 91.4 (80-100) fl MCH 30.8 (26-34) pg MCHC 33.7 (32-36) g/dl RDW 13.9 (11.5-14.5) % Plt Count 190 (150-375) k/mm3 MPV 8.7 (7.4-10.4) fl Immature Gran % (Auto) 0.5 (0-0.5) % Neut % (Auto) 79.0 H (45.5-73.1) % Lymph % (Auto) 12.8 L (18.3-44.2) % [place] % (Auto) 7.5 (2.6-8.5) % Eos % (Auto) 0.0 (0-4.4) % Baso % (Auto) 0.2 (0.2-1.2) % Lymph # (Auto) 1.26 (0.9-3.2) K/mm3 [place] # (Auto) 0.7 H (0.1-0.6) K/mm3 Eos # (Auto) 0.0 (0-0.3) K/mm3 Baso # (Auto) 0.0 (0.0-0.1) K/mm3 Abs Immat Gran (auto) 0.05 H (0.00-0.031) K/mm3 Absolute Neuts (auto) 7.8 H (1.3-6.7) K/mm3 Absolute Nucleated RBC 0.000 (0.0-0.012) K/mm3 Nucleated RBC % 0.0 (0.0-0.2) % PT 13.8 (11.1-14.7) Seconds INR 1.0 APTT 25.9 (22.3-36.8) Seconds Sodium 136 L (137-145) mmol/L Potassium 3.2 L (3.4-5.0) mmol/L Chloride 98 (98-107) mmol/L Carbon Dioxide 26 (22-30) mmol/L Anion Gap 12 (4-12) mmol/L BUN 52 H D (9-20) mg/dL Creatinine 1.10 (0.7-1.3) mg/dL Estim Creat Clear Calc 50 ml/min Estimated GFR > 60 (59 - ) Glucose 93 (65-110) mg/dL Calcium 9.0 (8.4-10.2) mg/dL Total Bilirubin 1.0 (0.2-1.3) mg/dL AST 35 (17-59) U/L ALT 27 (6-50) U/L Alkaline Phosphatase 107 (38-126) U/L Troponin I 0.019 (0.000-0.034) ng/mL NT-Pro-B Natriuret Pep 169 H (19.9-100) pg/mL Total Protein 8.0 (6.3-8.2) g/dL Albumin 4.0 (3.5-5.1) g/dL Influenza A (RT-PCR) Negative (Negative) Influenza B (RT-PCR) Negative (Negative) RSV (RT-PCR) Negative (Negative) SARS-CoV-2 RNA (RT-PCR) Negative (Negative) Imaging Data Radiologist's impression: ITS Impressions Chest CT 01/31/24 15:26 IMPRESSION: Consolidative findings within the left lower lobe for which chronic aspiration is suspected, as detailed above. Critical Care Time Critical Care Time Critical Care Time: No Discharge Plan Discharge Clinical Impression: Chronic pulmonary aspiration, Hypokalemia, Dehydration Patient Disposition: NH Long Term/Asst Living Condition: Stable Instructions: Antibiotic Form, Dehydration (DC), Aspiration Pneumonia (DC) Additional Instructions: Your workup today shows mild dehydration and low potassium. We have given you fluids and oral potassium. The imaging shows chronic aspiration pneumonia. You may continue your outpatient antibiotics. Follow-up closely with your PCP. If your symptoms worsen or other concerning symptoms arise, please return to the ER. Prescriptions: No Action amlodipine 5 mg tablet 5 mg PO DAILY guaifenesin 600 mg 600 mg PO BID tamsulosin 0.4 mg 0.8 mg PO DAILY Rx Instructions: 30 min after evening meal ergocalciferol (vitamin D2) 1,250 mcg 1,250 mg PO WEEKLY Rx Instructions: sundays Daily Multivitamin-Minerals Tablet 1 tablet PO DAILY buspirone 10 mg tablet 10 mg PO BID Saline Nasal 0.65 % Aerosol,[place] 2 spray INTRANASAL Q1H PRN (Reason: dryness) metoprolol tartrate 25 mg Tablet 25 mg PO Q12HR Qty: 60 0RF cefdinir 300 mg capsule 300 mg PO Q12H Qty: 14 0RF potassium chloride [Klor-Con 10] 10 mEq tablet extended release 1 tablet PO DAILY baclofen 10 mg tablet 1 tablet PO TID montelukast 10 mg tablet 1 tablet PO HS lisinopril-hydrochlorothiazide 10-12.5 mg tablet 1 tablet PO DAILY fluticasone propionate 50 mcg/actuation spray,suspension 1 ea INTRANASAL DAILY budesonide-formoterol [Symbicort] 80-4.5 mcg/actuation HFA aerosol inhaler 2 inh INHALATION BID roflumilast [Daliresp] 500 mcg tablet 1 tablet PO DAILY acetaminophen 325 mg Tablet 650 mg PO BID cetirizine [Zyrtec] 10 mg Tablet 10 mg PO HS magnesium hydroxide [Milk of Magnesia] 400 mg/5 mL Suspension 30 ml PO DAILY PRN (Reason: Constipation) docusate sodium 100 mg Capsule 100 mg PO BID polyethylene glycol 3350 17 g PO DAILY albuterol sulfate 90 mcg/actuation HFA aerosol inhaler 2 puff inhalation QID PRN (Reason: shortness of breath or wheezing) Qty: 6.7 0RF benzonatate 100 mg Capsule 100 mg PO BID PRN (Reason: Cough) furosemide 20 mg tablet 20 mg PO DAILY gabapentin 100 mg capsule 100 mg PO BID Follow-up/Referrals: Adilson Brennan MD [Primary Care Provider] -
[2024-01-31] MEDS: IPRATROPIUM BR 0.02% INH SOLN 0.5 MG/2.5 ML VIAL INHALATION (14:13)
[2024-01-31] MEDS: ALBUTEROL SULFATE NEB 2.5 MG/3 ML INH 5 MG INHALATION (14:13)
[2024-01-31 14:23] LABS: Partial Thromboplastin Time 25.9 Seconds (22.3-36.8); Prothrombin Time 13.8 Seconds (11.1-14.7)
[2024-01-31 14:32] LABS: Basophils Percent Auto 0.2 % (0.2-1.2); Hematocrit 38.3 % (42.0-52.0); Hemoglobin 12.9 g/dL (14.0-18.0); Immature Granulocyte Absolute 0.05 K/mm3 (0.00-0.031); Immature Granulocyte Percent A 0.5 % (0-0.5); Lymphocytes Absolute Auto 1.26 K/mm3 (0.9-3.2); Lymphocytes Percent Auto 12.8 % (18.3-44.2); Mean Corpuscular HGB Conc 33.7 g/dl (32-36); Mean Corpuscular Hemoglobin 30.8 pg (26-34); Mean Corpuscular Volume 91.4 fl (80-100); Mean Platelet Volume 8.7 fl (7.4-10.4); Monocytes Absolute Auto 0.7 K/mm3 (0.1-0.6); Monocytes Percent Auto 7.5 % (2.6-8.5); Neutrophils Absolute Auto 7.8 K/mm3 (1.3-6.7); Platelet Count Result 190 k/mm3 (150-375); Red Blood Count 4.19 M/mm3 (4.6-6.20); Red Cell Distribution Width 13.9 % (11.5-14.5); White Blood Count 9.9 K/mm3 (4.5-10.0)
[2024-01-31 14:47] LABS: Influenza A QL RT-PCR Negative (Negative); Influenza B QL RT-PCR Negative (Negative); RSV RNA, RT-PCR Negative (Negative); SARS-CoV-2 RNA PCR Negative (Negative)
[2024-01-31 14:59] LABS: Alanine Aminotransferase 27 U/L (6-50); Alkaline Phosphatase 107 U/L (38-126); Anion Gap 12 mmol/L (4-12); Aspartate Amino Transferase 35 U/L (17-59); Blood Urea Nitrogen 52 mg/dL (9-20); Carbon Dioxide 26 mmol/L (22-30); Chloride 98 mmol/L (98-107); Estimated CRCL calculation 50 ml/min; Estimated Glomerular Filt Rate > 60; Glucose 93 mg/dL (65-110); Potassium 3.2 mmol/L (3.4-5.0); Sodium 136 mmol/L (137-145)
[2024-01-31 15:10] LABS: NT Pro B Type Natriuretic Pept 169 pg/mL (19.9-100); Troponin I 0.019 ng/mL (0.000-0.034)
[2024-01-31] MEDS: SODIUM CHLORIDE 0.9% IV 1,000 ML 999 ML IV CONT (15:35)
[2024-01-31] MEDS: POTASSIUM CHLORIDE 20 MEQ PACKET (FOR LIQUID) 40 MEQ PO (17:07)
== END 2024-01-31 22:46 ==
PROVIDERS: Emergency Provider Emergency Medicine; PCP Hospitalist
DX: J69.0 Pneumonitis due to inhalation of food and vomit (principal); E87.6 Hypokalemia; E86.0 Dehydration; R06.02 Shortness of breath; Z20.822 Contact with and (suspected) exposure to COVID-19; J44.9 Chronic obstructive pulmonary disease, unspecified; I10 Essential (primary) hypertension; I67.9 Cerebrovascular disease, unspecified; N40.0 Benign prostatic hyperplasia without lower urinary tract symptoms; K21.9 Gastro-esophageal reflux disease without esophagitis; M19.90 Unspecified osteoarthritis, unspecified site; R41.89 Other symptoms and signs involving cognitive functions and awareness; F41.9 Anxiety disorder, unspecified; Z98.2 Presence of cerebrospinal fluid drainage device; Z79.899 Other long term (current) drug therapy; I45.10 Unspecified right bundle-branch block
CPT/HCPCS: 36415; 71250; 80053; 83880; 84484; 85025; 85610; 85730; 87637; 93005; 94640; 96360; 99284; A9270; J7030